=== PATIENT | female | born 1935 | race African-American/Black ===

== ENCOUNTER 2016-05-22 14:19 | Inpatient (IN) | payer BC, OTHER ==
[2016-05-22 14:34] VITALS: BMI 27.2
--- NOTE | 2016-05-22 14:40 | PDOC ---
History of Present Illness - General History Source: Patient, Spouse () Exam Limitations: No Limitations - History of Present Illness Initial Comments: 05/22/16 15:36 The patient is an 81 year old female with significant past medical history of diabetes and hyperlipidemia who presents to the emergency department with shortness of breath since this morning. The patient has dyspnea on exertion but denies SOB at rest. She denies orthopnea. She denies any associated chest pain or palpitations. The patient states that last night she felt lightheaded and felt like she might pass out, however she denies any syncope. The patient endorses a dry cough but denies any rhinorrhea. Her SOB is worse with ambulation and is better with rest. She denies any leg swelling or recent travels. She denies any sick contacts. She denies any recent illness, fevers, or chills. She does state that she felt lightheaded last night but denies any syncope of LOC. The patient is a former smoker (>50 years ago). The patient has a history of a lower extremity DVT many years ago. <Anika Gusman - Last Filed: 05/22/16 15:36> <Ronald Wilkerson - Last Filed: 05/22/16 16:38> - General Chief Complaint: Shortness of Breath Stated Complaint: SOB Time Seen by Provider: 05/22/16 14:25 Past History <Anika Gusman - Last Filed: 05/22/16 15:36> - Past Medical History Anemia: No Asthma: No Cancer: No Cardiac Disorders: No CVA: No COPD: No CHF: No Dementia: No Diabetes: Yes GI Disorders: (DUODENAL ULCER-YEARS AGO) Disorders: No HTN: No (IN THE PAST; MEDS D/Cd DUE TO HYPOTENSION) Hypercholesterolemia: Yes Liver Disease: No Seizures: No Thyroid Disease: Yes - Surgical History Abdominal Surgery: Yes Appendectomy: Yes Cardiac Surgery: No Cholecystectomy: No Lung Surgery: No Neurologic Surgery: No Orthopedic Surgery: Yes (2009 RIGHT KNEE ARTHROSCOPY) - Psycho/Social/Smoking Cessation Hx Anxiety: No Suicidal Ideation: No Smoking History: Former smoker Have you smoked in the past 12 months: No If you are a former smoker, when did you quit?: 1969 Information on smoking cessation initiated: No Hx Alcohol Use: No Drug/Substance Use Hx: No Substance Use Type: None Hx Substance Use Treatment: No <Ronald Wilkerson - Last Filed: 05/22/16 16:38> - Past Medical History Allergies/Adverse Reactions: Allergies Allergy/AdvReac Type Severity Reaction Status Date / Time cephalexin monohydrate Allergy Severe Rash Verified 05/22/16 14:24 [From Keflex] Home Medications: Ambulatory Orders Cholecalciferol (Vitamin D3) [Vitamin D-3] 2,000 unit PO DAILY 04/11/15 Metformin HCl [Glucophage] 1,000 mg PO BID 04/11/15 Review of Systems - Review of Systems Able to Perform ROS?: Yes Comments:: 05/22/16 15:36 CONSTITUTIONAL: No fever, no chills, no fatigue EYES: No visual changes ENT: No ear pain, no sore throat CARDIOVASCULAR: No chest pain, no palpitations RESPIRATORY: +SOB, +cough GI: No abdominal pain, no nausea, no vomiting, no constipation, no diarrhea GENITOURINARY: No dysuria, no frequency, no hematuria MUSCULOSKELETAL: No back pain, no joint pain, no myalgias SKIN: No rash NEURO: No headache <Anika Gusman - Last Filed: 05/22/16 15:36> *Physical Exam - Vital Signs Last Vital Signs Temp Pulse Resp BP Pulse Ox 98.3 F 114 H 22 116/89 93 L 05/22/16 15:05 05/22/16 15:21 05/22/16 15:21 05/22/16 15:21 05/22/16 15:21 - Physical Exam Comments: 05/22/16 15:36 CONSTITUTIONAL: Awake, alert, +tachypneic, dyspneic, hypoxemic, in moderate to severe respiratory distress. HEAD: Normocephalic; atraumatic EYES: PERRL; EOM intact ENMT: External appears normal; normal oropharynx NECK: Supple; non-tender; no cervical lymphadenopathy. No JVD CARD: Tachycardic. Normal S1, S2; no murmurs, rubs, or gallops RESP: Normal chest excursion with respiration; breath sounds clear and equal bilaterally; no wheezes, rhonchi, or rales ABD: Soft, non-distended; non-tender; no palpable organomegaly, no palpable hernias EXT: +Minimal pitting edema bilaterally with right calf tenderness. Normal ROM in all four extremities; distal pulses intact SKIN: Warm, dry, no rash NEURO: No focal neurological deficiencies. <NaseemAnika - Last Filed: 05/22/16 15:36> - Vital Signs Last Vital Signs Temp Pulse Resp BP Pulse Ox 116 H 26 H 126/110 92 L 05/22/16 14:28 05/22/16 14:25 05/22/16 14:25 05/22/16 14:28 <Ronald Wilkerson - Last Filed: 05/22/16 16:38> Heart Score/ECG Review - ECG Intrepretation Comment:: 05/22/16 15:37 Vent rate: 113 bpm OR interval: 186 ms QRS duration: 82 ms Sinus tachycardia Possible inferior infarct, age undetermined Anterior infarct, age undetermined <NaseemAnika - Last Filed: 05/22/16 15:36> ED Treatment Course - LABORATORY CBC & Chemistry Diagram: 05/22/16 15:05 05/22/16 15:05 - ADDITIONAL ORDERS Additional order review: 05/22/16 15:05 RBC 4.68 MCV 92.6 MCHC 33.0 RDW 14.4 MPV 9.5 Neutrophils % 63.9 Lymphocytes % 22.9 Monocytes % 9.8 Eosinophils % 2.9 Basophils % 0.5 - Medications Given in the ED: ED Medications Discontinued Medications Generic Name Dose Route Start Last Admin Trade Name Abdoulayeq PRN Reason Stop Dose Admin Nitroglycerin 0.4 mg 05/22/16 15:01 05/22/16 15:04 Nitrostat - SL 05/22/16 15:02 0.4 mg ONCE ONE Administration <NaseemAnika - Last Filed: 05/22/16 15:36> - LABORATORY CBC & Chemistry Diagram: 05/22/16 15:05 05/22/16 15:05 <Ronald Wilkerson - Last Filed: 05/22/16 16:38> Medical Decision Making - Critical Care Time Total Critical Care Time (minutes): 65 Critical Care Statement: The care of this patient involved high complexity decision making to prevent further life threatening deterioration of the patient 's condition and/or to evalute & treat vital organ system(s) failure or risk of failure. - Medical Decision Making 05/22/16 16:07 Patient is an 81-year-old female with history of diabetes, previous history of DVT (currently not on oral anticoagulation) presents with near syncope, and sudden onset of difficulty breathing at rest and with minimal exertion, severe hypoxemia requiring supplemental O2 via Ventimask at 50% to maintain oxygen saturation of 92-93% as well as sinus tachycardia. Patient's afebrile and hypertensive on initial evaluation. Lungs are noted to be clear, there is no JVD , no evidence of pericardial friction rub. Chest x-ray reveals no evidence of cardiomegaly, there is no infiltrate or effusion. I suspect a pulmonary embolism at this time. ABG on 50% FiO2 reveals pCO2 of 28 and pO2 of 58 representing elevated A-a gradient of 265. Bedside echocardiogram was performed and shows no evidence of pericardial effusion. At this time, I believe the patient experienced a submassive PE. We will administer heparin as at this time the benefits of heparin administration of the way the possible risk of bleeding. Will admit to the ICU for further evaluation and treatment. 05/22/16 16:29 Received verbal report from Dr. Dash regarding 2-D echocardiogram. Echo shows dilated right ventricle increased right ventricular pressures suggestive of PE. Case discussed with Dr. Parnell of pulmonary. Will initiate anticoagulation with heparin at 1000 units an hour. Will admit to the ICU. <Ronald Wilkerson - Last Filed: 05/22/16 16:38> *DC/Admit/Observation/Transfer - Attestations Scribe Attestion: 05/22/16 15:37 Documentation prepared by Anika Gusman, acting as medical records field technician for Ronald Wilkerson MD. <Anika Gusman - Last Filed: 05/22/16 15:36> - Discharge Dispostion Admit: Yes - Attestations Physician Attestion: 05/22/16 16:07 The documentation was prepared by the scribe under my direct supervision. I have reviewed the documentation which correctly represents the findings, medical decision-making and critical action taken by me. <Ronald Wilkerson - Last Filed: 05/22/16 16:38> Diagnosis at time of Disposition: Pulmonary embolism with acute cor pulmonale Qualifiers: Pulmonary embolism type: other Chronicity: acute Qualified Code(s): I26.09 - Other pulmonary embolism with acute cor pulmonale
[2016-05-22] MEDS ORDERED: NITROGLYCERIN SUBLINGUAL 1/150 0.4 MG TAB SL ONE (15:01)
[2016-05-22] MEDS ORDERED: NITROGLYCERIN SUBLINGUAL 1/150 0.4 MG TAB ONE (15:03)
[2016-05-22 15:32] LABS: BASOPHIL 0.5 % (0-2.0); EOSINOPHIL 2.9 % (0-4.5); MCH 30.6 pg (25.7-33.7); MEAN CELL VOLUME 92.6 fl (80-96); MEAN PLT VOLUME 9.5 fl (7.5-11.1); NEUTROPHILS 63.9 % (42.8-82.8); PLATELET COUNT 114 K/MM3 (134-434); RDW 14.4 % (11.6-15.6)
[2016-05-22 15:45] LABS: ALBUMIN 3.8 g/dl (3.4-5.0); BILIRUBIN,TOTAL 0.5 mg/dL (0.2-1.0); CALCIUM 9.4 mg/dL (8.5-10.1); CREATININE 1.3 mg/dL (0.55-1.02); TOT PROT 7.6 g/dl (6.4-8.2)
[2016-05-22 15:48] LABS: TROPONIN I 0.04 ng/ml (0.00-0.05)
[2016-05-22 15:59] LABS: ALLENS TEST POSITIVE; ART PUNCT SITE RIGHT RADIAL; ARTERIAL BLD GAS O2 SATURATION 89.3 % (90-98.9); ARTERIAL BLOOD GAS BASE EXCESS -1.9 meq/l (-2-2); ARTERIAL BLOOD GAS HCO3 20.4 meq/L (22-26); LPM/O2% 50%; PT. ON O2? YES
[2016-05-22 16:00] LABS: ARTERIAL BLOOD GAS pH 7.46 (7.35-7.45); TYPE OF O2 VENTI MASK
[2016-05-22 16:01] LABS: ARTERIAL BLOOD GAS PO2 58.6 mmHg (68-100)
[2016-05-22] MEDS ORDERED: HEPARIN NA (PORCINE) 5,000 UNITS/ML 1ML VIAL IVPUSH ONE (16:01)
[2016-05-22 16:17] LABS: INR 1.02 (0.82-1.09); PROTHROMBIN TIME (PATIENT) 11.2 SEC (9.98-11.88)
--- NOTE | 2016-05-22 16:32 | PN ---
[id number] HYPOXEMIC RESPIRATORY FAILURE SUB-MASSIVE PULMONARY EMBOLISM H/O DVT HTN PLAN ANTICOAGULATION SUPPLEMENTAL O2 HEPARIN CATHETER DIRECTED THROMBOLYSIS CE , BNP DUPLEX LOWER EXTREMITIES ICU MONITORING W/U FOR HYPERCOAGULABLE STATE DR CARLISLE Problem List - Problems (1) Acute respiratory failure with hypoxemia Code(s): J96.01 - ACUTE RESPIRATORY FAILURE WITH HYPOXIA (2) Subacute massive pulmonary embolism Code(s): I26.99 - OTHER PULMONARY EMBOLISM WITHOUT ACUTE COR PULMONALE (3) DVT (deep venous thrombosis) Code(s): I82.409 - ACUTE EMBOLISM AND THOMBOS UNSP DEEP VN UNSP LOWER EXTREMITY (4) Hypertension Code(s): I10 - ESSENTIAL (PRIMARY) HYPERTENSION (5) Pulmonary embolism with acute cor pulmonale Code(s): I26.09 - OTHER PULMONARY EMBOLISM WITH ACUTE COR PULMONALE Qualifiers : Pulmonary embolism type: other Chronicity: acute Qualified Code( s): I26.09 - Other pulmonary embolism with acute cor pulmonale
[2016-05-22] MEDS ORDERED: ACETAMINOPHEN 325 MG TABLET (FP) PO PRN (16:36)
[2016-05-22] MEDS ORDERED: ONDANSETRON 4 MG/2 ML VIAL IVPB PRN (16:36)
--- NOTE | 2016-05-22 16:40 | HP ---
CHIEF COMPLAINT: Shortness of breath PCP: Dr. Hernandez HISTORY OF PRESENT ILLNESS: This is an 81 year old female with a history of lower extremity DVT x40 yrs ago while on OCP (does not recall having any hypercoaguable workup at that time), HLD, pulmonary sarcoidosis, and NIDDM who presented to the ED today complaining of sudden onset of lightheadedness and dyspnea while out shopping yesterday. She does also note mild right calf pain and swelling for several weeks. She denies chest pain, cough/hemoptysis, fevers/ chills, or any other symptoms. ER course was notable for: (1) EKG: Sinus tachycardia at 113bpm (2) CTA Chest: Bilateral PEs (3) Echocardiogram: Dilated right ventricle, elevated RVSP Recent Travel: None PAST MEDICAL HISTORY: As above PAST SURGICAL HISTORY: Left knee arthroscopy Social History: Lives with , retired HEALTH AND WELLNESS MANAGER Smoking: Distant history of cigarette smoking Alcohol: None Family History: No known family history of hypercoaguability Allergies cephalexin monohydrate [From Keflex] Allergy (Severe, Verified 05/22/16 14:24) Rash HOME MEDICATIONS: Home Medications Medication Instructions Recorded Cholecalciferol (Vitamin D3) 2,000 unit PO DAILY 04/11/15 [Vitamin D-3] Metformin HCl [Glucophage] 1,000 mg PO BID 04/11/15 REVIEW OF SYSTEMS CONSTITUTIONAL: Generalized weakness Absent: fever, chills, diaphoresis, malaise, loss of appetite, weight change HEENT: Absent: rhinorrhea, nasal congestion, throat pain, throat swelling, difficulty swallowing, mouth swelling, ear pain, eye pain, visual changes CARDIOVASCULAR: Lightheadedness/near syncope Absent: chest pain, syncope, palpitations, irregular heart rate, peripheral edema RESPIRATORY: Shortness of breath at rest Absent: cough, hemoptysis GASTROINTESTINAL: Absent: abdominal pain, abdominal distension, nausea, vomiting, diarrhea, constipation, melena, hematochezia GENITOURINARY: Absent: dysuria, frequency, urgency, hesitancy, hematuria, flank pain, genital pain MUSCULOSKELETAL: Absent: myalgia, arthralgia, joint swelling, back pain, neck pain SKIN: Absent: rash, itching, pallor HEMATOLOGIC/IMMUNOLOGIC: Absent: easy bleeding, easy bruising, lymphadenopathy, frequent infections ENDOCRINE: Absent: unexplained weight gain, unexplained weight loss, heat intolerance, cold intolerance NEUROLOGIC: Absent: headache, focal weakness or paresthesias, dizziness, unsteady gait, seizure, mental status changes, bladder or bowel incontinence PSYCHIATRIC: Absent: anxiety, depression, suicidal or homicidal ideation, hallucinations. PHYSICAL EXAMINATION Vital Signs - 24 hr 05/22/16 05/22/16 05/22/16 14:25 14:28 15:05 Temperature 98.3 F Pulse Rate 116 H 116 H Pulse Rate [ Apical] Pulse Rate [ 122 H Right Radial] Respiratory 26 H 22 Rate Blood Pressure 126/110 Blood Pressure 147/112 [Left] O2 Sat by Pulse 92 L 92 L 90 L Oximetry (%) 05/22/16 05/22/16 15:12 15:21 Temperature Pulse Rate 110 H 114 H Pulse Rate [ 114 H Apical] Pulse Rate [ 110 H Right Radial] Respiratory 24 22 Rate Blood Pressure Blood Pressure 132/110 116/89 [Left] O2 Sat by Pulse 92 L 93 L Oximetry (%) GENERAL: Awake, alert, and fully oriented, in no acute distress. HEAD: Normal with no signs of trauma. EYES: Pupils equal, round and reactive to light, extraocular movements intact, sclera anicteric, conjunctiva clear. No lid lag. EARS, NOSE, THROAT: Ears normal, nares patent, oropharynx clear without exudates. Moist mucous membranes. NECK: Normal range of motion, supple without lymphadenopathy, JVD, or masses. LUNGS: Tachypneic, appears dyspneic but is able to speak in full sentences. Breath sounds equal, clear to auscultation bilaterally. No accessory muscle use. HEART: Tachycardic. Regular rate and rhythm, normal S1 and S2 without murmur, rub or gallop. ABDOMEN: Soft, nontender, not distended, normoactive bowel sounds, no guarding, no rebound, no masses. No hepatomegaly or splenomegaly. MUSCULOSKELETAL: Normal range of motion at all joints. No bony deformities or tenderness. No CVA tenderness. UPPER EXTREMITIES: 2+ pulses, warm, well-perfused. No cyanosis. No clubbing. Cap refill <2 seconds. No peripheral edema. LOWER EXTREMITIES: 2+ pulses, warm, well-perfused. Right calf tenderness, + Homans' sign. NEUROLOGICAL: Cranial nerves II-XII intact. Normal speech. PSYCHIATRIC: Cooperative. Good eye contact. Appropriate mood and affect. SKIN: Warm, dry, normal turgor, no rashes or lesions noted. Laboratory Results - last 24 hr 05/22/16 05/22/16 05/22/16 15:05 15:05 15:05 WBC 9.0 RBC 4.68 Hgb 14.3 Hct 43.3 MCV 92.6 MCHC 33.0 RDW 14.4 Plt Count 114 L MPV 9.5 Neutrophils % 63.9 Lymphocytes % 22.9 Monocytes % 9.8 Eosinophils % 2.9 Basophils % 0.5 INR 1.02 Puncture Site ABG pH ABG pCO2 at Pt Temp ABG pO2 at Pt Temp ABG HCO3 ABG O2 Sat (Measured) ABG O2 Content ABG Base Excess Charli Test O2 Delivery Device Oxygen Flow Rate Sodium 140 Potassium 4.1 Chloride 103 Carbon Dioxide 23 Anion Gap 14 BUN 16 Creatinine 1.3 H Creat Clearance w eGFR 39.41 Random Glucose 133 H Calcium 9.4 Total Bilirubin 0.5 AST 16 ALT 12 Alkaline Phosphatase 71 Creatine Kinase 111 Troponin I 0.04 Total Protein 7.6 Albumin 3.8 05/22/16 15:45 WBC RBC Hgb Hct MCV MCHC RDW Plt Count MPV Neutrophils % Lymphocytes % Monocytes % Eosinophils % Basophils % INR Puncture Site Right radial ABG pH 7.46 H ABG pCO2 at Pt Temp 29.1 L ABG pO2 at Pt Temp 58.6 L ABG HCO3 20.4 L ABG O2 Sat (Measured) 89.3 L ABG O2 Content 17.0 ABG Base Excess -1.9 Charli Test Positive O2 Delivery Device Venti mask Oxygen Flow Rate 50% Sodium Potassium Chloride Carbon Dioxide Anion Gap BUN Creatinine Creat Clearance w eGFR Random Glucose Calcium Total Bilirubin AST ALT Alkaline Phosphatase Creatine Kinase Troponin I Total Protein Albumin ASSESSMENT/PLAN: 81 year old female with submassive PE. Problem List - Problem (1) Pulmonary embolism with acute cor pulmonale Assessment/Plan: -Currently normotensive -Heparin 5000 unit bolus given; start gtt at 1000 units/hr -IR consulted for consideration of catheter-directed TPA vs. thrombectomy -Monitor in ICU Code(s): I26.09 - OTHER PULMONARY EMBOLISM WITH ACUTE COR PULMONALE Qualifiers : Pulmonary embolism type: other Chronicity: acute Qualified Code( s): I26.09 - Other pulmonary embolism with acute cor pulmonale (2) Acute respiratory failure with hypoxemia Assessment/Plan: -Treatment of PE as above -Supplemental O2 via 50% VentiMask Code(s): J96.01 - ACUTE RESPIRATORY FAILURE WITH HYPOXIA (3) Hyperlipemia Assessment/Plan: -Choelsterol/fat-controlled diet when resumes PO Code(s): E78.5 - HYPERLIPIDEMIA, UNSPECIFIED (4) Diabetes Assessment/Plan: -Hold Metformin s/p CTA -ISS -FSACHS -Diabetic diet when resumes PO Code(s): E11.9 - TYPE 2 DIABETES MELLITUS WITHOUT COMPLICATIONS (5) DVT prophylaxis Assessment/Plan: -Therapeutic heparin Code(s): CRU6673 - Visit type - Emergency Visit Emergency Visit: Yes ED Registration Date: 05/22/16 Care time: The patient presented to the Emergency Department on the above date and was hospitalized for further evaluation of their emergent condition. - New Patient This patient is new to me today: Yes Date on this admission: 05/23/16 - Critical Care Critical Care patient: Yes Total Critical Care Time (in minutes): 35 Critical Care Statement: The care of this patient involved high complexity decision making to prevent further life threatening deterioration of the patient 's condition and/or to evalute & treat vital organ system(s) failure or risk of failure.
[2016-05-22] MEDS ORDERED: HEPARIN NA (PORCINE) 5,000 UNITS/ML 1ML VIAL IVPUSH PRN ×2 (16:44)
[2016-05-22] MEDS: HEPARIN - 25,000 UNIT in SODIUM CHLORIDE 495 ML IV SCH (16:45)
[2016-05-22] MEDS ORDERED: HEPARIN - 25,000 UNIT in SODIUM CHLORIDE 495 ML IV SCH (16:45)
[2016-05-22] MEDS ORDERED: HEPARIN NA (PORCINE) 5,000 UNITS/ML 1ML VIAL ONE (16:47)
[2016-05-22] MEDS ORDERED: HEPARIN INFUSION - 500 ML IVPB ONE (16:47)
--- NOTE | 2016-05-22 17:18 | CONS ---
DATE OF CONSULTATION: 05/22/2016 REFERRING PHYSICIAN: Ronald Wilkerson MD HISTORY OF PRESENT ILLNESS: The patient is an 81-year-old black female with a past medical history of DVT many years ago treated with anticoagulation, hyperlipidemia, nonsmoker, admitted to [facility] with acute onset of shortness of breath. The patient states she was doing well until last night when she felt very lightheaded and felt like she was going to faint. She laid down, went to sleep and woke up this morning initially feeling well. States that she was sitting in a chair and suddenly felt acute onset of shortness of breath. Denies any chest pain, nausea, vomiting or diaphoresis. She presented to the emergency room with the above. In the ER she was noted to be markedly hypoxemic with O2 saturations in the low 80s. She was placed on supplemental O2. She was also noted to be tachycardic. She denies any fever, chills. Denies history of respiratory failure in the past or ventilatory support. There is no history of recent travel. The patient was empirically placed on IV heparin for presumed diagnosis of acute pulmonary embolism. Echocardiogram was performed which revealed evidence of dilated right ventricle with increased right ventricular pressures suggestive of PE. PAST MEDICAL HISTORY: Again, includes DVT, hypertension. SOCIAL HISTORY: Nonsmoker. No occupational exposures. REVIEW OF SYSTEMS: Positive orthopnea. Positive dyspnea. No chest pain. No palpitations. No nausea. No vomiting. No diaphoresis. No hemoptysis. No abdominal pain. Mild lower extremity right calf tenderness. PHYSICAL EXAMINATION: General: The patient is an elderly black female, well developed, well nourished , awake, alert, dyspneic and tachypneic, on nasal O2. Vital Signs: Temperature is 98.3, heart rate 114 and regular, blood pressure 116/89, respiratory rate 22, O2 saturation is 93% on Ventimask. HEENT: Normocephalic and atraumatic. Neck: Supple. Heart: Tachycardia with normal S1, S2. Chest: Diminished breath sounds bilaterally. Abdomen: Soft. Bowel sounds are positive. Extremities: There is some mild tenderness of the right calf. LABORATORY DATA: Blood gas shows pH 7.46, PCO2 of 29, PO2 of 58, bicarbonate of 20, and saturation of 89. That was on 50% Ventimask. WBC is 9, hemoglobin 14.3, hematocrit 43.3, platelet count 114,000. Chemistries: BUN 16, creatinine 1.3. Chest CT is pending. IMPRESSION: 1. Acute hypoxemic respiratory failure, secondary to acute submassive pulmonary embolism. 2. History of deep vein thrombosis. 3. History of hypertension. PLAN: 1. IV heparin. 2. Supplemental O2. 3. Cardiac enzymes. 4. Review CT scan as soon as available. 5. ICU monitoring. 6. Cardiac enzymes. 7. Consider catheter-directed tPA. 8. F/U Echo 9. W/U for Hypercoagulable state 10. Duplex ultrasound lower extremities. CHELLE CARLISLE M.D. DIANA/[id number] MTDD
--- NOTE | 2016-05-22 21:19 | CONSULT ---
Consult Consult Specialty:: PULM/CCM Reason for Consultation:: Sub Massive PE, right heart strain, hypoxia - History of Present Illness Chief Complaint: shortness of breath History of Present Illness: Briefly Ms Barrios is an 81 year old woman with a history of lower extremity DVT x 40 yrs ago while on OCP (does not recall having any hypercoaguable workup at that time, did have one miscarriage but subsquent to term x 2), sarcoidosis (never on treatment) HLD, and NIDDM who presented to the ED today complaining of sudden onset of lightheadedness and dyspnea while out shopping yesterday. She was able to go home and rest overnight. This morning was unable to walk without dyspnea, prompting 911 activation. She does also note mild right calf pain and swelling for several weeks, thought was arthritis. She denies chest pain, cough/hemoptysis, fevers/chills, or any other symptoms. In ED afebrile, normotensive, tachycardic 120, RR 28, requiring 50% venti for Spo2 >92. CXr clear. EKG largely unrevealing isolate Q in III but no ischemic changes. Started on empiric heparin gtt. CTA showed bilateral PE. TTE showed normal LV, and evidence of R heart strain. Chains of enlarged mediastinal lymphadenopathy c/w known sarcoidosis. Transferred to ICU for further care. LED showed extensive non-occlusive thrombus on R. On arrival in ICU pt awake, alert, mildly tachypneic but not in distress. - History Source History Provided By: Patient - Past Medical History Cardio/Vascular: Yes: HTN, Hyperlipdemia Pulmonary: Yes: Other (Sarcoidosis) ...: No Endocrine: Yes: Diabetes Mellitus Additional Medical History: one miscarriage - Alcohol/Substance Use Hx Alcohol Use: No History of Substance Use: reports: None - Smoking History Smoking history: Former smoker Have you smoked in the past 12 months: No If you are a former smoker, when did you quit?: 1970 - Social History Usual Living Arrangement: With Spouse ADL: Independent History of Recent Travel: No (No recent long auto either) Home Medications - Allergies Allergies/Adverse Reactions: Allergies Allergy/AdvReac Type Severity Reaction Status Date / Time cephalexin monohydrate Allergy Severe Rash Verified 05/22/16 14:24 [From Keflex] - Home Medications Home Medications: Ambulatory Orders Cholecalciferol (Vitamin D3) [Vitamin D-3] 2,000 unit PO DAILY 04/11/15 Metformin HCl [Glucophage] 1,000 mg PO BID 04/11/15 Family Disease History - Family Disease History Family Disease History: Other: Father (CVA) Review of Systems - Review of Systems Constitutional: reports: No Symptoms Eyes: reports: No Symptoms HENT: reports: No Symptoms Neck: reports: No Symptoms Cardiovascular: reports: No Symptoms Respiratory: reports: SOB (as described in HPI), SOB on Exertion Genitourinary: reports: No Symptoms Breasts: reports: No Symptoms Reported Musculoskeletal: reports: No Symptoms, Extremity Pain (R>L LE pain.) Neurological: reports: No Symptoms Endocrine: reports: No Symptoms Hematology/Lymphatic: reports: No Symptoms Psychiatric: reports: No Symptoms Physical Exam Vital Signs: Vital Signs Temperature 98.3 F 05/22/16 19:01 Pulse Rate 108 H 05/22/16 19:01 Respiratory Rate 32 H 05/22/16 19:01 Blood Pressure 127/94 05/22/16 19:01 O2 Sat by Pulse Oximetry (%) 93 L 05/22/16 19:19 Constitutional: Yes: Well Nourished, No Distress Eyes: Yes: Conjunctiva Clear, EOM Intact, PERRL HENT: Yes: Atraumatic, Normocephalic Neck: Yes: Supple, Trachea Midline. No: Lymphadenopathy Cardiovascular: Yes: Regular Rate and Rhythm, S1, S2. No: Murmur, Rub Respiratory: Yes: CTA Bilaterally, On Venti-Mask. No: Accessory Muscle Use Gastrointestinal: Yes: Normal Bowel Sounds, Soft ...Rectal Exam: Yes: Deferred Renal/: Yes: WNL Breast(s): Yes: WNL Musculoskeletal: Yes: Muscle Pain Extremities: Yes: WNL. No: Cyanosis, Delayed Capillary Refill, Other (No clubbing) Edema: No Integumentary: Yes: WNL Neurological: Yes: WNL, Alert, Oriented, Cran Nerves II-XII Intact ...Motor Strength: WNL Psychiatric: Yes: WNL Labs: CBC, BMP 05/22/16 15:05 05/22/16 15:05 Imaging - Results Chest X-ray: Image Reviewed (clear) Cat Scan: Image Reviewed Other: Report Reviewed (Extensive R non occlusive thrombus) Problem List - Problems (1) Acute respiratory failure with hypoxemia Code(s): J96.01 - ACUTE RESPIRATORY FAILURE WITH HYPOXIA (2) DVT (deep venous thrombosis) Code(s): I82.409 - ACUTE EMBOLISM AND THOMBOS UNSP DEEP VN UNSP LOWER EXTREMITY (3) Pulmonary embolism with acute cor pulmonale Code(s): I26.09 - OTHER PULMONARY EMBOLISM WITH ACUTE COR PULMONALE Qualifiers : Pulmonary embolism type: other Chronicity: acute Qualified Code( s): I26.09 - Other pulmonary embolism with acute cor pulmonale (4) Subacute massive pulmonary embolism Code(s): I26.99 - OTHER PULMONARY EMBOLISM WITHOUT ACUTE COR PULMONALE Assessment/Plan Pulm/CCM Pt seen and examined in the ICU A/ 81 y/o woman with remote hx of DVT while on OCP, 1 previous miscarriage but no other hx c/f hypercoag state now presenting with bilateral PE and R LE DVT with hypoxemia, some R heart strain but with hemodynamic stablility. She is on heparin gtt, she is less distress than earlier, she is oxygenating adequately. While she still has extensive clot burden and is at risk for acute worsening she is on appropriate but conservative therapy, there is no current indication for tPA. She may however benefit from catheter directed therapy. p/ -heparin gtt for full therapeutic goal -Fio2 for Spo2 >92 - IR consulted, apparently considering directed therapy - systemic tPA if hemodynamically unstable - can check and trend t-BNP - repeat TTE in few days - NPO pending decision about IR procedure -hypercoag workup (Protein C, Protein S, APL, etc) as outpt -ICU care Derick Walker ACNP [id number]
[2016-05-23] MEDS: INSULIN SLIDING SCALE (NOVOLOG) 1 VIAL SQ SCH ×5 (00:02→22:18)
[2016-05-23] MEDS: MUPIROCIN 2% TOPICAL OINTMENT FOR DECOLONIZATION NS SCH ×3 (00:03→22:07)
[2016-05-23] MEDS: CHLORHEXIDINE GLUCONATE 4% CLEANSER FOR DECOLONIZATION TP SCH ×2 (00:03→22:07)
[2016-05-23 06:08] LABS: BASOPHIL 0.5 % (0-2.0); EOSINOPHIL 2.8 % (0-4.5); MCH 30.8 pg (25.7-33.7); MCHC 33.4 g/dl (32.0-36.0); MEAN CELL VOLUME 92.2 fl (80-96); MEAN PLT VOLUME 9.5 fl (7.5-11.1); NEUTROPHILS 59.4 % (42.8-82.8); PLATELET COUNT 108 K/MM3 (134-434); RDW 14.1 % (11.6-15.6); WHITE BLOOD COUNT 7.5 K/mm3 (4.0-10.0)
[2016-05-23 06:22] LABS: INR 1.23 (0.82-1.09); PROTHROMBIN TIME (PATIENT) 13.6 SEC (9.98-11.88)
--- NOTE | 2016-05-23 07:25 | PN ---
[id number] chest pain that increases with deep breathing, cough and movement. Denies lightheadedness, headache, dizziness or leg pain. OBJECTIVE: Non-rebreather mask SPO2 100%, mildly tachypneic, heart rate high 90's. ABG hypoxemia, mild respiratory alkalosis: 7.46/29/58.6/20.4 Vital Signs Period Temp Pulse Resp BP Sys/Reynoso Pulse Ox Last 24 Hr 97.4 F-98.4 F 88-108 18-32 111-133/68-94 88-94 GENERAL: The patient is awake, alert, and fully oriented. LUNGS: Breathing even and unlabored at rest, does develop some dyspnea when speaking. Breath sounds equal, clear to auscultation bilaterally. HEART: Regular rate and rhythm, S1, S2 without murmur, rub or gallop. ABDOMEN: Soft, nontender, nondistended, normoactive bowel sounds. EXTREMITIES: 2+ pulses, warm, no edema. Right calf tenderness. NEUROLOGICAL: CN II through XII grossly intact. Normal speech, gait not observed. PSYCH: Normal mood, normal affect. SKIN: Warm, dry, normal turgor, no rashes or lesions noted Imaging - CXR (05/22/16): No evidence of pneumonia, CHF, pleural effusion or pneumothorax. - Vascular Duplex (05/22/16): Right lower extremity there is extensive largely nonocclusive thrombus within the common and superficial femoral veins as well as the popliteal vein; these veins are incompletely compressible. No evidence of DVT on the left side. - Chest CTA (05/22/16): extensive bilateral pulmonary embolism noted within the right upper and lower lobe pulmonary arteries, as well as the bifurcation of the left main pulmonary artery, extensive lymphadenopathy involving all mediastinal chains. The heart is not enlarged, there is not thoracic aortic aneuysm or dissection. No pulmonary masses or pleural effusions, no gallbladder abnormalities. - Echo (05/22/16): As per cardiology, ECHO showed dilated right ventricle, elevated RVSP CBCD WBC 7.5 K/mm3 (4.0-10.0) 05/23/16 05:00 RBC 4.24 M/mm3 (3.60-5.2) 05/23/16 05:00 Hgb 13.1 GM/dL (10.7-15.3) 05/23/16 05:00 Hct 39.1 % (32.4-45.2) 05/23/16 05:00 MCV 92.2 fl (80-96) 05/23/16 05:00 MCHC 33.4 g/dl (32.0-36.0) 05/23/16 05:00 RDW 14.1 % (11.6-15.6) 05/23/16 05:00 Plt Count 108 K/MM3 (134-434) L 05/23/16 05:00 MPV 9.5 fl (7.5-11.1) 05/23/16 05:00 CMP Sodium 142 mmol/L (136-145) 05/23/16 05:00 Potassium 3.8 mmol/L (3.5-5.1) 05/23/16 05:00 Chloride 109 mmol/L (98-107) H 05/23/16 05:00 Carbon Dioxide 22 mmol/L (21-32) 05/23/16 05:00 Anion Gap 11 (8-16) 05/23/16 05:00 BUN 13 mg/dL (7-18) 05/23/16 05:00 Creatinine 1.1 mg/dL (0.55-1.02) H 05/23/16 05:00 Creat Clearance w eGFR 47.79 (>60) 05/23/16 05:00 Random Glucose 92 mg/dL (74-106) D 05/23/16 05:00 Calcium 8.7 mg/dL (8.5-10.1) 05/23/16 05:00 Total Bilirubin 0.5 mg/dL (0.2-1.0) 05/23/16 05:00 AST 15 U/L (15-37) 05/23/16 05:00 ALT 9 U/L (12-78) L D 05/23/16 05:00 Alkaline Phosphatase 63 U/L (45-117) 05/23/16 05:00 Total Protein 6.5 g/dl (6.4-8.2) 05/23/16 05:00 Albumin 3.2 g/dl (3.4-5.0) L 05/23/16 05:00 CARDIAC ENZYMES Creatine Kinase 94 IU/L (26-192) 05/23/16 05:00 Troponin I 0.09 ng/ml (0.00-0.05) H 05/23/16 05:00 ABG Results ABG pH 7.46 (7.35-7.45) H 05/22/16 15:45 ABG pCO2 at Pt Temp 29.1 mmHg (35-45) L 05/22/16 15:45 ABG pO2 at Pt Temp 58.6 mmHg (68-100) L 05/22/16 15:45 ABG HCO3 20.4 meq/L (22-26) L 05/22/16 15:45 ABG O2 Sat (Measured) 89.3 % (90-98.9) L 05/22/16 15:45 ABG O2 Content 17.0 % vol (15-22) 05/22/16 15:45 ABG Base Excess -1.9 meq/l (-2-2) 05/22/16 15:45 Laboratory Results - last 24 hr 05/22/16 05/22/16 05/22/16 17:06 17:06 20:20 WBC RBC Hgb Hct MCV MCHC RDW Plt Count MPV Neutrophils % Lymphocytes % Monocytes % Eosinophils % Basophils % INR PTT (Actin FS) 33.8 D-Dimer Cancelled 4383 H POC Glucometer Lactic Acid 05/22/16 05/22/16 05/22/16 20:20 23:00 23:08 WBC RBC Hgb Hct MCV MCHC RDW Plt Count MPV Neutrophils % Lymphocytes % Monocytes % Eosinophils % Basophils % INR PTT (Actin FS) 161.5 H D D-Dimer POC Glucometer 122.87314 Lactic Acid 2.139 H* 05/23/16 05/23/16 05/23/16 05:00 05:00 05:37 WBC 7.5 RBC 4.24 Hgb 13.1 Hct 39.1 MCV 92.2 MCHC 33.4 RDW 14.1 Plt Count 108 L MPV 9.5 Neutrophils % 59.4 Lymphocytes % 25.9 Monocytes % 11.4 H Eosinophils % 2.8 Basophils % 0.5 INR 1.23 H PTT (Actin FS) D-Dimer POC Glucometer 109.13847 Lactic Acid 05/23/16 06:50 WBC RBC Hgb Hct MCV MCHC RDW Plt Count MPV Neutrophils % Lymphocytes % Monocytes % Eosinophils % Basophils % INR PTT (Actin FS) 77.1 H D D-Dimer POC Glucometer Lactic Acid Active Medications Generic Name Dose Route Start Last Admin Trade Name Freq PRN Reason Stop Dose Admin Acetaminophen 650 mg 05/22/16 16:36 Tylenol - PO Q6H PRN FEVER OR PAIN Chlorhexidine Gluconate 1 applic 05/22/16 22:00 05/23/16 00:03 Hibiclens For Decolonization - TP Not Given HS MARV Heparin Sodium (Porcine) 1,000 unit 05/22/16 16:43 Heparin - IVPUSH PRN PRN Heparin Heparin Sodium (Porcine) 5,000 unit 05/22/16 16:43 Heparin - IVPUSH PRN PRN Heparin Heparin Sodium (Porcine) 25, 500 mls @ 20 mls/hr 05/22/16 16:45 05/23/16 00:31 000 unit/ Sodium Chloride IV 700 unit/hr TITR MARV Titration Protocol 1,000 UNIT/HR Insulin Aspart 1 vial 05/22/16 22:00 05/23/16 00:02 Novolog Vial Sliding Scale - SQ Not Given ACHS [facility] Protocol Mupirocin 1 applic 05/22/16 22:00 05/23/16 00:03 Bactroban Ointment (For Decolonization) - NS 05/27/16 21:59 Not Given BID MARV Ondansetron HCl 4 mg 05/22/16 16:36 Zofran Injection IVPB Q6H PRN NAUSEA ASSESSMENT: This is a 81 year old female with a PMH of lower extremity DVT x40 years ago while on OCP (without hypercoaguable workup), HLD, pulmonary sarcoidosis, NIDDM, past smoker, who presented to the ED complaining of shortness of breath, sudden onset of lightheadedness, MAURO and mild right calf pain and swelling for several weeks. She was admitted and found to have submassive PE, DVT to right LE and extensive mediastinal lymphadenopathy on CTA. PLAN: Submassive PE/extensive DVT - Pt is hemodynamically stable; no hypotension observed - Chest CTA shows extensive bilateral pulmonary embolism noted within the right upper and lower lobe pulmonary arteries, as well as the bifurcation of the left main pulmonary artery - Echocardiogram: Flattened septum consistent with RV overload; elevated RVSP > 60mmHg, RV systolic function severely reduced - BNP is also elevated at 7110 - Vascular Duplex: Right lower extremity there is extensive largely nonocclusive thrombus within the common and superficial femoral veins as well as the popliteal vein - On heparin gtt, titrate to aPTT - Given evidence of right heart strain, discussed possible intervention with Dr. Goldman; patient remains NPO for now - Consider systemic tPA if becomes hemodynamically unstable - Needs hypercoaguable workup as outpatient - Incidental noted on CTA is extensive lymphadenopathy involving all mediastinal chains; lymphoma is a consideration; will consult oncology in case biopsy is warranted (however, suspect likely secondary to known history of pulmonary sarcoidosis) Acute Respiratory Failure - Supplemental O2 as needed to maintain saturation - Repeat ABG now to assess for improved oxygenation (PO2 vas 58 on 50% FiO2) Sarcoidosis: history of - No active issues Endocrine: DM - FS ACHS - Insulin Sliding scale - Diabetic diet when resumes PO Disposition: Continues to require inpatient ICU care. Code status: Full Problem List - Problems (1) Pulmonary embolism with acute cor pulmonale Code(s): I26.09 - OTHER PULMONARY EMBOLISM WITH ACUTE COR PULMONALE Qualifiers : Qualified Code(s): I26.09 - Other pulmonary embolism with acute cor pulmonale (2) Acute respiratory failure with hypoxemia Code(s): J96.01 - ACUTE RESPIRATORY FAILURE WITH HYPOXIA (3) Hyperlipemia Code(s): E78.5 - HYPERLIPIDEMIA, UNSPECIFIED (4) Diabetes Code(s): E11.9 - TYPE 2 DIABETES MELLITUS WITHOUT COMPLICATIONS (5) DVT prophylaxis Code(s): NXD9267 - Visit type - Emergency Visit Emergency Visit: Yes ED Registration Date: 05/22/16 Care time: The patient presented to the Emergency Department on the above date and was hospitalized for further evaluation of their emergent condition. - New Patient This patient is new to me today: No - Critical Care Critical Care patient: Yes Total Critical Care Time (in minutes): 35 Critical Care Statement: The care of this patient involved high complexity decision making to prevent further life threatening deterioration of the patient 's condition and/or to evalute & treat vital organ system(s) failure or risk of failure.
[2016-05-23 07:31] LABS: ALBUMIN 3.2 g/dl (3.4-5.0); BILIRUBIN,TOTAL 0.5 mg/dL (0.2-1.0); CALCIUM 8.7 mg/dL (8.5-10.1); CREATININE 1.1 mg/dL (0.55-1.02); MAGNESIUM 1.8 mg/dL (1.8-2.4); TOT PROT 6.5 g/dl (6.4-8.2)
[2016-05-23 07:34] LABS: TROPONIN I 0.09 ng/ml (0.00-0.05)
--- NOTE | 2016-05-23 09:37 | PN ---
Progress Note (short form) - Note Progress Note: Patient seen and examined in the ICU. Awake and alert on 100% NRBM. Reports some mild, intermittent sternal discomfort. On IV Heparin. Intake & Output 05/20/16 05/21/16 05/22/16 05/23/16 23:59 23:59 23:59 23:59 Intake Total 100 710 Output Total 200 Balance -100 710 Weight 189 lb 11.2 oz 189 lb 11.2 oz Last Vital Signs Temp Pulse Resp BP Pulse Ox 98.2 F 90 21 115/83 99 05/23/16 06:00 05/23/16 08:00 05/23/16 08:00 05/23/16 08:00 05/23/16 09:00 Active Medications Acetaminophen (Tylenol -) 650 mg PO Q6H PRN PRN Reason: FEVER OR PAIN Chlorhexidine Gluconate (Hibiclens For Decolonization -) 1 applic TP HS [facility] Last Admin: 05/23/16 00:03 Dose: Not Given Heparin Sodium (Porcine) (Heparin -) 1,000 unit IVPUSH PRN PRN PRN Reason: Heparin Heparin Sodium (Porcine) (Heparin -) 5,000 unit IVPUSH PRN PRN PRN Reason: Heparin Heparin Sodium (Porcine) 25, (000 unit/ Sodium Chloride) 500 mls @ 20 mls/hr IV TITR MARV; 1,000 UNIT/HR PRN Reason: Protocol Last Titration: 05/23/16 08:44 Dose: 650 unit/hr Insulin Aspart (Novolog Vial Sliding Scale -) 1 vial SQ ACHS MARV PRN Reason: Protocol Last Admin: 05/23/16 08:44 Dose: Not Given Mupirocin (Bactroban Ointment (For Decolonization) -) 1 applic NS BID [facility] Stop: 05/27/16 21:59 Last Admin: 05/23/16 00:03 Dose: Not Given Ondansetron HCl (Zofran Injection) 4 mg IVPB Q6H PRN PRN Reason: NAUSEA Constitutional: Yes: Awake and alert, NAD Eyes: Yes: Conjunctiva Clear, EOM Intact, PERRL HENT: Yes: Atraumatic, Normocephalic Neck: Yes: Supple, Trachea Midline. No: Lymphadenopathy Cardiovascular: Yes: Regular Rate and Rhythm, S1, S2. No: Murmur, Rub Respiratory: Yes: CTA Bilaterally, On NRBM, No: Accessory Muscle Use Gastrointestinal: Yes: Normal Bowel Sounds, Soft ...Rectal Exam: Yes: Deferred Renal/: Yes: WNL Breast(s): Yes: WNL Musculoskeletal: Yes: Muscle Pain Extremities: Yes: WNL. No: Cyanosis, Delayed Capillary Refill, Other (No clubbing) Edema: No Integumentary: Yes: WNL Neurological: Yes: WNL, Alert, Oriented, Non-focal ...Motor Strength: WNL Psychiatric: Yes: WNL Labs: Laboratory Results - last 24 hr 05/22/16 05/22/16 05/22/16 15:00 15:05 15:05 WBC 9.0 RBC 4.68 Hgb 14.3 Hct 43.3 MCV 92.6 MCHC 33.0 RDW 14.4 Plt Count 114 L MPV 9.5 Neutrophils % 63.9 Lymphocytes % 22.9 Monocytes % 9.8 Eosinophils % 2.9 Basophils % 0.5 INR 1.02 PTT (Actin FS) D-Dimer Puncture Site ABG pH ABG pCO2 at Pt Temp ABG pO2 at Pt Temp ABG HCO3 ABG O2 Sat (Measured) ABG O2 Content ABG Base Excess Charli Test O2 Delivery Device Oxygen Flow Rate Sodium Potassium Chloride Carbon Dioxide Anion Gap BUN Creatinine Creat Clearance w eGFR POC Glucometer Random Glucose Lactic Acid Calcium Magnesium Total Bilirubin AST ALT Alkaline Phosphatase Creatine Kinase Troponin I B-Natriuretic Peptide 1792.44 H Total Protein Albumin 05/22/16 05/22/16 05/22/16 15:05 15:45 17:06 WBC RBC Hgb Hct MCV MCHC RDW Plt Count MPV Neutrophils % Lymphocytes % Monocytes % Eosinophils % Basophils % INR PTT (Actin FS) D-Dimer Cancelled Puncture Site Right radial ABG pH 7.46 H ABG pCO2 at Pt Temp 29.1 L ABG pO2 at Pt Temp 58.6 L ABG HCO3 20.4 L ABG O2 Sat (Measured) 89.3 L ABG O2 Content 17.0 ABG Base Excess -1.9 Charli Test Positive O2 Delivery Device Venti mask Oxygen Flow Rate 50% Sodium 140 Potassium 4.1 Chloride 103 Carbon Dioxide 23 Anion Gap 14 BUN 16 Creatinine 1.3 H Creat Clearance w eGFR 39.41 POC Glucometer Random Glucose 133 H Lactic Acid Calcium 9.4 Magnesium Total Bilirubin 0.5 AST 16 ALT 12 Alkaline Phosphatase 71 Creatine Kinase 111 Troponin I 0.04 B-Natriuretic Peptide Total Protein 7.6 Albumin 3.8 05/22/16 05/22/16 05/22/16 17:06 20:20 20:20 WBC RBC Hgb Hct MCV MCHC RDW Plt Count MPV Neutrophils % Lymphocytes % Monocytes % Eosinophils % Basophils % INR PTT (Actin FS) 33.8 D-Dimer 4383 H Puncture Site ABG pH ABG pCO2 at Pt Temp ABG pO2 at Pt Temp ABG HCO3 ABG O2 Sat (Measured) ABG O2 Content ABG Base Excess Charli Test O2 Delivery Device Oxygen Flow Rate Sodium Potassium Chloride Carbon Dioxide Anion Gap BUN Creatinine Creat Clearance w eGFR POC Glucometer Random Glucose Lactic Acid 2.139 H* Calcium Magnesium Total Bilirubin AST ALT Alkaline Phosphatase Creatine Kinase Troponin I B-Natriuretic Peptide Total Protein Albumin 05/22/16 05/22/16 05/23/16 23:00 23:08 05:00 WBC 7.5 RBC 4.24 Hgb 13.1 Hct 39.1 MCV 92.2 MCHC 33.4 RDW 14.1 Plt Count 108 L MPV 9.5 Neutrophils % 59.4 Lymphocytes % 25.9 Monocytes % 11.4 H Eosinophils % 2.8 Basophils % 0.5 INR PTT (Actin FS) 161.5 H D D-Dimer Puncture Site ABG pH ABG pCO2 at Pt Temp ABG pO2 at Pt Temp ABG HCO3 ABG O2 Sat (Measured) ABG O2 Content ABG Base Excess Charli Test O2 Delivery Device Oxygen Flow Rate Sodium Potassium Chloride Carbon Dioxide Anion Gap BUN Creatinine Creat Clearance w eGFR POC Glucometer 122.05330 Random Glucose Lactic Acid Calcium Magnesium Total Bilirubin AST ALT Alkaline Phosphatase Creatine Kinase Troponin I B-Natriuretic Peptide Total Protein Albumin 05/23/16 05/23/16 05/23/16 05:00 05:00 05:37 WBC RBC Hgb Hct MCV MCHC RDW Plt Count MPV Neutrophils % Lymphocytes % Monocytes % Eosinophils % Basophils % INR 1.23 H PTT (Actin FS) D-Dimer Puncture Site ABG pH ABG pCO2 at Pt Temp ABG pO2 at Pt Temp ABG HCO3 ABG O2 Sat (Measured) ABG O2 Content ABG Base Excess Charli Test O2 Delivery Device Oxygen Flow Rate Sodium 142 Potassium 3.8 Chloride 109 H Carbon Dioxide 22 Anion Gap 11 BUN 13 Creatinine 1.1 H Creat Clearance w eGFR 47.79 POC Glucometer 109.72052 Random Glucose 92 D Lactic Acid Calcium 8.7 Magnesium 1.8 Total Bilirubin 0.5 AST 15 ALT 9 L D Alkaline Phosphatase 63 Creatine Kinase 94 Troponin I 0.09 H B-Natriuretic Peptide 7109.98 H Total Protein 6.5 Albumin 3.2 L 05/23/16 06:50 WBC RBC Hgb Hct MCV MCHC RDW Plt Count MPV Neutrophils % Lymphocytes % Monocytes % Eosinophils % Basophils % INR PTT (Actin FS) 77.1 H D D-Dimer Puncture Site ABG pH ABG pCO2 at Pt Temp ABG pO2 at Pt Temp ABG HCO3 ABG O2 Sat (Measured) ABG O2 Content ABG Base Excess Charli Test O2 Delivery Device Oxygen Flow Rate Sodium Potassium Chloride Carbon Dioxide Anion Gap BUN Creatinine Creat Clearance w eGFR POC Glucometer Random Glucose Lactic Acid Calcium Magnesium Total Bilirubin AST ALT Alkaline Phosphatase Creatine Kinase Troponin I B-Natriuretic Peptide Total Protein Albumin Problem List - Problems (1) Acute respiratory failure with hypoxemia Code(s): J96.01 - ACUTE RESPIRATORY FAILURE WITH HYPOXIA (2) DVT (deep venous thrombosis) Code(s): I82.409 - ACUTE EMBOLISM AND THOMBOS UNSP DEEP VN UNSP LOWER EXTREMITY (3) Pulmonary embolism with acute cor pulmonale Code(s): I26.09 - OTHER PULMONARY EMBOLISM WITH ACUTE COR PULMONALE Qualifiers : Pulmonary embolism type: other Chronicity: acute Qualified Code( s): I26.09 - Other pulmonary embolism with acute cor pulmonale (4) Subacute massive pulmonary embolism Code(s): I26.99 - OTHER PULMONARY EMBOLISM WITHOUT ACUTE COR PULMONALE Assessment/Plan Submassive PE -> Currently hemodynamically stable. Remote Hx of DVT while on OCP Hx of 1 previous miscarriage PLAN: - Heparin gtt for full therapeutic goal - Fio2 for Spo2 >92 - IR consulted, will be assessed for catheter directed therapy - Systemic tPA if hemodynamically unstable - Check and trend BNP - Repeat TTE in few days - PO as tolerated - ICU monitoring Dr Kc CCTime 35"
--- NOTE | 2016-05-23 13:30 | EKG ---
Test Reason : Blood Pressure : / mmHG Vent. Rate : 090 BPM Atrial Rate : 090 BPM P-R Int : 192 ms QRS Dur : 082 ms QT Int : 402 ms P-R-T Axes : 036 -05 -16 degrees QTc Int : 491 ms NORMAL SINUS RHYTHM ANTERIOR INFARCT (CITED ON OR BEFORE 22-MAY-2016) WITH T WAVE INVERSION T WAVE ABNORMALITY, CONSIDER INFERIOR ISCHEMIA ABNORMAL ECG WHEN COMPARED WITH ECG OF 22-MAY-2016 14:54, SERIAL CHANGES OF ANTERIOR INFARCT PRESENT - T WAVE INVERSION IS SEEN VENT. RATE HAS DECREASED CLINICAL CORRELATION IS RECOMMENDED Confirmed by JAVI AVILA MD ([id number]) on 05/23/2016 1:29:40 PM Referred By: KRISTIE Confirmed By:JAVI AVILA MD
--- NOTE | 2016-05-23 13:40 | EKG ---
Test Reason : Blood Pressure : / mmHG Vent. Rate : 113 BPM Atrial Rate : 113 BPM P-R Int : 186 ms QRS Dur : 082 ms QT Int : 322 ms P-R-T Axes : 045 064 038 degrees QTc Int : 441 ms SINUS TACHYCARDIA POSSIBLE INFERIOR INFARCT , AGE UNDETERMINED ANTERIOR INFARCT , AGE UNDETERMINED POOR R WAVE PROGRESSION ABNORMAL ECG WHEN COMPARED WITH ECG OF 24-DEC-2008 08:21, VENT. RATE HAS INCREASED BY 44 BPM Confirmed by MARGARITA TRAN, JAVI ([id number]) on 05/23/2016 1:40:23 PM Referred By: Confirmed By:JAVI AVILA MD
[2016-05-23 15:21] LABS: ARTERIAL BLOOD GAS BASE EXCESS 1.1 meq/l (-2-2); ARTERIAL BLOOD GAS HCO3 23.7 meq/L (22-26); ARTERIAL BLOOD GAS PO2 70.9 mmHg (68-100)
[2016-05-23 15:22] LABS: ALLENS TEST POSITIVE; ART PUNCT SITE RIGHT RADIAL; ARTERIAL BLOOD GAS pH 7.47 (7.35-7.45); LPM/O2% 100%; PT. ON O2? YES; TYPE OF O2 NRM
--- NOTE | 2016-05-23 16:54 | CONSULT ---
Consult Consult Specialty:: Hematology/Oncology Referred by:: Reason for Consultation:: extensive new bilateral pulmonary embolism and mediastinal lemphadenopathy concerning for lymphoma - History of Present Illness Chief Complaint: Short of breath, lightheaded History of Present Illness: is a very pleasant 81 y/o AAF with Hx of untreated asymptomatic sarcoidosis, LE DVT while on OCP 40 yrs ago,HLD, DM and mild smoker for 10-15 years who presented with dyspnea and lightheadedness of sudden onset. Work-up in the ED and on admission revealed she had sinus tachycardia, right heart strain and CT showed the presence of bilateral extensive PE along with mediastinal adenopathy in all mediastinal chains. She is now being closely monitored in the ICU on a heparin drip. On speaking with the patient, she states that she continues to have some pain on breathing and dyspnea. She was noted to be on a NRB mask. 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 No: Asthma, Bronchitis, Cancer, COPD, O2 Dependent, Pneumonia, Previously Intubated, Pulmonary Embolus, Pulmonary Fibrosis, Sleep Apnea Gastrointestinal: No: Ascites, Cancer, Constipation, Crohn's Disease, Diverticulitis, Diverticulosis, Esophageal Varices, Gastritis, GERD, GI Bleed, Hemorrhoids, Hiatal Hernia, Inflamatory Bowel Disease, Irritable Bowel Disease, Pancreatitis, Peptic Ulcer Disease, Ulcerative Colitis, Other Hepatobiliary: No: Cirrhosis, Cholelithiasis, Cholecystitis, Choledocholithiasis , Hepatitis A, Hepatitis B, Hepatitis C, Other Renal/: No: Renal Failure, Renal Inusuff, BPH, Cancer, Hematuria, Hemodialysis , Neurogenic Bladder, Renal Calculi, UTI, Other Reproductive: No: Ectopic , Endometriosis, Fibroids, PID, Polycystic Ovary Syndrome, Postmenopausal, Other ...: No Heme/Onc: No: Anemia, B12 Deficiency, Bleeding Disorder, Cancer, Current Chemotherapy, Current Radiation Therapy, Hemochromatosis, Hypercoaguable State, Myeloproliferative Synd, Sickle Cell Disease, Sickle Cell Trait, Thrombocytopenia, Other Infectious Disease: No: AIDS, C-Diff, Herpes Zoster, HIV, MRSA, STD's, Tuberculosis, VREF, Other Psych: No: Addictions, Anxiety, Bipolar, Depression, Panic, Psychosis, Schizophrenia, Other Musculoskeletal: No: Bursitis, Chronic low back pain, Hemiparesis, Hemiplegia, Osteoarthritis, Paraplegia, Other Rheumatology: No: Fibromyalgia, Gout, Lupus, Rheumatoid Arthritis, Sarcoidosis, Vasculitis, Other Endocrine: Yes: Diabetes Mellitus. No: [place]'s Disease, Arnold's Disease, Diabetes Insipidus, Hyperparathyroidism, Hyperthyroidism, Hypothyroidism, Osteopenia, SIADH, Other Dermatology: No: Basal Cell, Cellulitis, Eczema, Melanoma, Psoriasis, Squamous Cell, Other Additional Medical History: one miscarriage - Alcohol/Substance Use History of Substance Use: reports: None - Smoking History Smoking history: Former smoker (daily light smoker for 10-15 years) Have you smoked in the past 12 months: No If you are a former smoker, when did you quit?: 1969 - Social History Usual Living Arrangement: With Spouse ADL: Independent History of Recent Travel: No (No recent long auto either) Home Medications - Allergies Allergies/Adverse Reactions: Allergies Allergy/AdvReac Type Severity Reaction Status Date / Time cephalexin monohydrate Allergy Severe Rash Verified 05/22/16 14:24 [From Keflex] - Home Medications Home Medications: Ambulatory Orders Cholecalciferol (Vitamin D3) [Vitamin D-3] 2,000 unit PO DAILY 04/11/15 Metformin HCl [Glucophage] 1,000 mg PO BID 04/11/15 Family Disease History - Family Disease History Family History: Unremarkable Family Disease History: Other: Father (CVA) Physical Exam Vital Signs: Vital Signs Temperature 98.6 F 05/23/16 13:58 Pulse Rate 94 H 05/23/16 16:00 Respiratory Rate 23 05/23/16 16:00 Blood Pressure 118/91 05/23/16 16:00 O2 Sat by Pulse Oximetry (%) 99 05/23/16 11:40 Constitutional: Yes: Mild Distress Eyes: Yes: Conjunctiva Clear, EOM Intact, PERRL HENT: Yes: WNL Neck: Yes: WNL, Supple Cardiovascular: Yes: Tachycardia Respiratory: Yes: SOB on Exertion, Other (decreased breath sounds bilaterally) Gastrointestinal: Yes: WNL ...Rectal Exam: Yes: WNL Renal/: Yes: WNL Breast(s): Yes: WNL Musculoskeletal: Yes: WNL Extremities: Yes: WNL Integumentary: Yes: WNL Neurological: Yes: WNL Labs: CBC, BMP 05/23/16 05:00 05/23/16 05:00 Problem List - Problems (1) DVT (deep venous thrombosis) Code(s): I82.409 - ACUTE EMBOLISM AND THOMBOS UNSP DEEP VN UNSP LOWER EXTREMITY (2) Pulmonary embolism with acute cor pulmonale Code(s): I26.09 - OTHER PULMONARY EMBOLISM WITH ACUTE COR PULMONALE Qualifiers : Pulmonary embolism type: other Chronicity: acute Qualified Code( s): I26.09 - Other pulmonary embolism with acute cor pulmonale (3) Lymphadenopathy Code(s): R59.1 - GENERALIZED ENLARGED LYMPH NODES Assessment/Plan 81 y/o female with new submassive PE and mediastinal lymphadenopathy - agree with heparin gtt, IR and tPA standby - would recommend bridging patient to low molecular weight heaprin in the setting of possible malignancy -continue to monitor patient in ICU setting -hold off hypercoagulable work-up in the setting of acute PE, she had a provoked DVT 40 years ago while on OCP, low suspicion for an inherited thrombophilia -although she has a history of sarcoidosis, given extensive adenopathy and submassive PE presentation, would perform a core biopsy for working up lymphoma on the most easily accessible lymph node when hymodyanamically stable , would discuss this with IR -patient agreeable to lymph node biopsy when stable -will continue to follow with you closely
[2016-05-23] MEDS ORDERED: PT OWN MED DRAWER 7, Y5N ONE (17:53)
[2016-05-23] MEDS: HEPARIN - 25,000 UNIT in SODIUM CHLORIDE 495 ML IV SCH (17:54)
[2016-05-24 06:14] LABS: BASOPHIL 0.5 % (0-2.0); EOSINOPHIL 3.7 % (0-4.5); MCH 31.4 pg (25.7-33.7); MCHC 33.8 g/dl (32.0-36.0); MEAN CELL VOLUME 93.1 fl (80-96); MEAN PLT VOLUME 9.4 fl (7.5-11.1); NEUTROPHILS 63.1 % (42.8-82.8); PLATELET COUNT 102 K/MM3 (134-434); RDW 14.2 % (11.6-15.6); WHITE BLOOD COUNT 7.6 K/mm3 (4.0-10.0)
[2016-05-24 06:22] LABS: INR 1.21 (0.82-1.09); PROTHROMBIN TIME (PATIENT) 13.4 SEC (9.98-11.88)
[2016-05-24 06:52] LABS: CALCIUM 8.4 mg/dL (8.5-10.1)
[2016-05-24] MEDS: INSULIN SLIDING SCALE (NOVOLOG) 1 VIAL SQ SCH ×4 (06:56→22:48)
--- NOTE | 2016-05-24 07:51 | PN ---
Physical Exam: SUBJECTIVE: Patient seen and examined at the bedside, pt states cough and breathing are getting better; chest pain has also improved from yesterday, and has localized only to the back, now. She also states that she has pain to the right anterior thigh. She also had a period of confusion last night, however is now reoriented. Pt denies any dyspnea, dizziness, headache. On non-rebreather mask Continue heparin gtt Current Medications Generic Name Dose Route Start Last Admin Trade Name Freq PRN Reason Stop Dose Admin Acetaminophen 650 mg 05/22/16 16:36 05/23/16 13:12 Tylenol - PO 650 mg Q6H PRN Administration FEVER OR PAIN Chlorhexidine Gluconate 1 applic 05/22/16 22:00 05/23/16 22:07 Hibiclens For Decolonization - TP 1 applic HS MARV Administration Docusate Sodium 100 mg 05/24/16 08:54 Colace - PO BID PRN CONSTIPATION Heparin Sodium (Porcine) 1,000 unit 05/22/16 16:43 05/24/16 07:52 Heparin - IVPUSH 1,000 unit PRN PRN Administration Heparin Heparin Sodium (Porcine) 5,000 unit 05/22/16 16:43 Heparin - IVPUSH PRN PRN Heparin Heparin Sodium (Porcine) 25, 500 mls @ 20 mls/hr 05/22/16 16:45 05/24/16 07:52 000 unit/ Sodium Chloride IV 750 unit/hr TITR MARV Titration Protocol 1,000 UNIT/HR Insulin Aspart 1 vial 05/22/16 22:00 05/24/16 11:12 Novolog Vial Sliding Scale - SQ 2 units ACHS MARV Administration Protocol Mupirocin 1 applic 05/22/16 22:00 05/24/16 10:03 Bactroban Ointment (For Decolonization) - NS 05/27/16 21:59 1 applic BID MARV Administration Ondansetron HCl 4 mg 05/22/16 16:36 Zofran Injection IVPB Q6H PRN NAUSEA Objective: Vital Signs Period Temp Pulse Resp BP Sys/Reynoso Pulse Ox Last 24 Hr 98.2 F-98.6 F 87-100 17-26 115-138/72-95 97-99 GENERAL: The patient is awake, alert, and fully oriented. LUNGS: Breathing even and unlabored at rest. Breath sounds equal, clear to auscultation bilaterally. HEART: Regular rate and rhythm, S1, S2 without murmur, rub or gallop. ABDOMEN: Soft, nontender, nondistended, normoactive bowel sounds. EXTREMITIES: 2+ pulses equal and bilateral, warm, no edema. Right anterior thigh tenderness. NEUROLOGICAL: CN II through XII grossly intact. Normal speech, gait not observed. PSYCH: Normal mood, normal affect. SKIN: Warm, dry, normal turgor, no rashes or lesions noted ABG Results ABG pH 7.47 (7.35-7.45) H 05/23/16 15:20 ABG pCO2 at Pt Temp 32.7 mmHg (35-45) L 05/23/16 15:20 ABG pO2 at Pt Temp 70.9 mmHg (68-100) D 05/23/16 15:20 ABG HCO3 23.7 meq/L (22-26) 05/23/16 15:20 ABG O2 Sat (Measured) 94.0 % (90-98.9) 05/23/16 15:20 ABG O2 Content 17.3 % vol (15-22) 05/23/16 15:20 ABG Base Excess 1.1 meq/l (-2-2) 05/23/16 15:20 CBCD WBC 7.6 K/mm3 (4.0-10.0) 05/24/16 05:00 RBC 4.30 M/mm3 (3.60-5.2) 05/24/16 05:00 Hgb 13.5 GM/dL (10.7-15.3) 05/24/16 05:00 Hct 40.0 % (32.4-45.2) 05/24/16 05:00 MCV 93.1 fl (80-96) 05/24/16 05:00 MCHC 33.8 g/dl (32.0-36.0) 05/24/16 05:00 RDW 14.2 % (11.6-15.6) 05/24/16 05:00 Plt Count 102 K/MM3 (134-434) L 05/24/16 05:00 MPV 9.4 fl (7.5-11.1) 05/24/16 05:00 CMP Sodium 143 mmol/L (136-145) 05/24/16 05:00 Potassium 4.0 mmol/L (3.5-5.1) 05/24/16 05:00 Chloride 110 mmol/L (98-107) H 05/24/16 05:00 Carbon Dioxide 24 mmol/L (21-32) 05/24/16 05:00 Anion Gap 9 (8-16) 05/24/16 05:00 BUN 15 mg/dL (7-18) 05/24/16 05:00 Creatinine 1.0 mg/dL (0.55-1.02) 05/24/16 05:00 Creat Clearance w eGFR 47.79 (>60) 05/23/16 05:00 Random Glucose 117 mg/dL (74-106) H D 05/24/16 05:00 Calcium 8.4 mg/dL (8.5-10.1) L 05/24/16 05:00 Total Bilirubin 0.5 mg/dL (0.2-1.0) 05/23/16 05:00 AST 15 U/L (15-37) 05/23/16 05:00 ALT 9 U/L (12-78) L D 05/23/16 05:00 Alkaline Phosphatase 63 U/L (45-117) 05/23/16 05:00 Total Protein 6.5 g/dl (6.4-8.2) 05/23/16 05:00 Albumin 3.2 g/dl (3.4-5.0) L 05/23/16 05:00 CARDIAC ENZYMES Creatine Kinase 94 IU/L (26-192) 05/23/16 05:00 Troponin I 0.09 ng/ml (0.00-0.05) H 05/23/16 05:00 Imaging - CXR (05/22/16): No evidence of pneumonia, CHF, pleural effusion or pneumothorax. - Vascular Duplex (05/22/16): Right lower extremity there is extensive largely nonocclusive thrombus within the common and superficial femoral veins as well as the popliteal vein; these veins are incompletely compressible. No evidence of DVT on the left side. - Chest CTA (05/22/16): extensive bilateral pulmonary embolism noted within the right upper and lower lobe pulmonary arteries, as well as the bifurcation of the left main pulmonary artery, extensive lymphadenopathy involving all mediastinal chains. The heart is not enlarged, there is not thoracic aortic aneuysm or dissection. No pulmonary masses or pleural effusions, no gallbladder abnormalities. - Echo (05/22/16): RV mod to severely dilated, RVSF severely reduced. Mod TR, Elevated right ventricular systolic pressure. Severe pulmonary HTN, Flattened septum consistent with RV pressure overload - EKG (05/23/16): Normal Sinus Rhythm, new T wave inversion from past EKG. ASSESSMENT: This is a 81 year old female with a PMH of lower extremity DVT x40 years ago while on OCP (without hypercoaguable workup), HLD, pulmonary sarcoidosis, NIDDM, past smoker, who presented to the ED complaining of shortness of breath, sudden onset of lightheadedness, MAURO and mild right calf pain and swelling for several weeks. She was admitted and found to have submassive PE, DVT to right LE and extensive mediastinal lymphadenopathy on CTA. PLAN: Pulmonary: Submassive Pulmonary Embolism/extensive DVT: with right heart strain - Pt is hemodynamically stable; no hypertension observed - Consider systemic tPA if becomes hemodynamically unstable - IR consult - given evidence of right heart strain, per DOCUMENT MANAGEMENT CONSULTANT note from yesterday , discussed possible intervention with Dr. Goldman; follow-up - Remains on heparin gtt - Likely transition to Lovenox prior to discharge given possible malignancy diagnosis - Needs hypercoaguable workup as outpatient - Follow up past Echo with Dr. Tavo Santana. Acute Respiratory Failure 2/2 Pulmonary embolism - Improving - Supplemental O2 as needed to maintain saturation - ABG improved: 7.47/32.7/70.9/23.7 (PO2 improved to 70.9 on 100% FiO2 NRBM) Sarcoidosis: history of - No active issues Heme/onc: Mediastinal lymphadenopathy: - Incidental noted on CTA is extensive lymphadenopathy involving all mediastinal chains - Will need hypercoaguable workup and lymph node biopsy once stable - Bridge heparin to low molecular weight heparin in presence of possible malignancy, when stable and prior to discharge. - Appreciate oncology consult Endocrine: DM - FS ACHS - Insulin Sliding scale - Diabetic diet when resumes PO F/E/N: - Stool softener, Colace BID - Diabetic diet Prophylaxis - Therapeutic Heparin gtt Disposition: Continues to require inpatient ICU care. CODE STATUS: FULL CODE Visit type - Emergency Visit Emergency Visit: Yes ED Registration Date: 05/22/16 Care time: The patient presented to the Emergency Department on the above date and was hospitalized for further evaluation of their emergent condition. - New Patient This patient is new to me today: No - Critical Care Critical Care patient: Yes Total Critical Care Time (in minutes): 35 Critical Care Statement: The care of this patient involved high complexity decision making to prevent further life threatening deterioration of the patient 's condition and/or to evalute & treat vital organ system(s) failure or risk of failure.
[2016-05-24] MEDS: HEPARIN NA (PORCINE) 5,000 UNITS/ML 1ML VIAL IVPUSH PRN (07:52)
--- NOTE | 2016-05-24 09:52 | PN ---
Progress Note (short form) - Note Progress Note: Patient seen and examined in the ICU. Awake and alert on 100% NRBM. Feel about the same as yesterday. Mildly tachypneic at rest. Remains on IV Heparin. Heme/Onc consult noted. Intake & Output 05/21/16 05/22/16 05/23/16 05/24/16 23:59 23:59 23:59 23:59 Intake Total 100 1834 256 Output Total 200 500 Balance -100 1334 256 Weight 189 lb 11.2 oz 189 lb 11.2 oz 190 lb Last Vital Signs Temp Pulse Resp BP Pulse Ox 98.4 F 89 20 138/100 97 05/24/16 06:00 05/24/16 08:00 05/24/16 08:27 05/24/16 08:00 05/24/16 08:39 Active Medications Acetaminophen (Tylenol -) 650 mg PO Q6H PRN PRN Reason: FEVER OR PAIN Last Admin: 05/23/16 13:12 Dose: 650 mg Chlorhexidine Gluconate (Hibiclens For Decolonization -) 1 applic TP HS MARV Last Admin: 05/23/16 22:07 Dose: 1 applic Docusate Sodium (Colace -) 100 mg PO BID PRN PRN Reason: CONSTIPATION Heparin Sodium (Porcine) (Heparin -) 1,000 unit IVPUSH PRN PRN PRN Reason: Heparin Last Admin: 05/24/16 07:52 Dose: 1,000 unit Heparin Sodium (Porcine) (Heparin -) 5,000 unit IVPUSH PRN PRN PRN Reason: Heparin Heparin Sodium (Porcine) 25, (000 unit/ Sodium Chloride) 500 mls @ 20 mls/hr IV TITR MARV; 1,000 UNIT/HR PRN Reason: Protocol Last Titration: 05/24/16 07:52 Dose: 750 unit/hr Insulin Aspart (Novolog Vial Sliding Scale -) 1 vial SQ ACHS MARV PRN Reason: Protocol Last Admin: 05/24/16 06:56 Dose: Not Given Mupirocin (Bactroban Ointment (For Decolonization) -) 1 applic NS BID MARV Stop: 05/27/16 21:59 Last Admin: 05/23/16 22:07 Dose: 1 applic Ondansetron HCl (Zofran Injection) 4 mg IVPB Q6H PRN PRN Reason: NAUSEA Constitutional: Yes: Awake and alert, Mildly tachypneic at rest Eyes: Yes: Conjunctiva Clear, EOM Intact, PERRL HENT: Yes: Atraumatic, Normocephalic Neck: Yes: Supple, Trachea Midline. No: Lymphadenopathy Cardiovascular: Yes: Regular Rate and Rhythm, S1, S2. No: Murmur, Rub Respiratory: Yes: CTA Bilaterally, On NRBM, No: Accessory Muscle Use Gastrointestinal: Yes: Normal Bowel Sounds, Soft ...Rectal Exam: Yes: Deferred Renal/: Yes: WNL Breast(s): Yes: WNL Musculoskeletal: Yes: Muscle Pain Extremities: Yes: WNL. No: Cyanosis, Delayed Capillary Refill, Other (No clubbing) Edema: No Integumentary: Yes: WNL Neurological: Yes: WNL, Alert, Oriented, Non-focal ...Motor Strength: WNL Psychiatric: Yes: WNL Labs: Laboratory Results - last 24 hr 05/23/16 05/23/16 05/23/16 11:08 15:20 17:09 WBC RBC Hgb Hct MCV MCHC RDW Plt Count MPV Neutrophils % Lymphocytes % Monocytes % Eosinophils % Basophils % INR PTT (Actin FS) Puncture Site Right radial ABG pH 7.47 H ABG pCO2 at Pt Temp 32.7 L ABG pO2 at Pt Temp 70.9 D ABG HCO3 23.7 ABG O2 Sat (Measured) 94.0 ABG O2 Content 17.3 ABG Base Excess 1.1 Charli Test Positive O2 Delivery Device Nrm Oxygen Flow Rate 100% Sodium Potassium Chloride Carbon Dioxide Anion Gap BUN Creatinine POC Glucometer 164.53583 181.14882 Random Glucose Calcium 05/23/16 05/24/16 05/24/16 22:15 05:00 05:00 WBC 7.6 RBC 4.30 Hgb 13.5 Hct 40.0 MCV 93.1 MCHC 33.8 RDW 14.2 Plt Count 102 L MPV 9.4 Neutrophils % 63.1 Lymphocytes % 21.9 Monocytes % 10.8 H Eosinophils % 3.7 Basophils % 0.5 INR PTT (Actin FS) 44.3 H D Puncture Site ABG pH ABG pCO2 at Pt Temp ABG pO2 at Pt Temp ABG HCO3 ABG O2 Sat (Measured) ABG O2 Content ABG Base Excess Charli Test O2 Delivery Device Oxygen Flow Rate Sodium Potassium Chloride Carbon Dioxide Anion Gap BUN Creatinine POC Glucometer 133.35272 Random Glucose Calcium 05/24/16 05/24/16 05:00 05:00 WBC RBC Hgb Hct MCV MCHC RDW Plt Count MPV Neutrophils % Lymphocytes % Monocytes % Eosinophils % Basophils % INR 1.21 H PTT (Actin FS) Puncture Site ABG pH ABG pCO2 at Pt Temp ABG pO2 at Pt Temp ABG HCO3 ABG O2 Sat (Measured) ABG O2 Content ABG Base Excess Charli Test O2 Delivery Device Oxygen Flow Rate Sodium 143 Potassium 4.0 Chloride 110 H Carbon Dioxide 24 Anion Gap 9 BUN 15 Creatinine 1.0 POC Glucometer Random Glucose 117 H D Calcium 8.4 L Problem List - Problems (1) Acute respiratory failure with hypoxemia Code(s): J96.01 - ACUTE RESPIRATORY FAILURE WITH HYPOXIA (2) DVT (deep venous thrombosis) Code(s): I82.409 - ACUTE EMBOLISM AND THOMBOS UNSP DEEP VN UNSP LOWER EXTREMITY (3) Pulmonary embolism with acute cor pulmonale Code(s): I26.09 - OTHER PULMONARY EMBOLISM WITH ACUTE COR PULMONALE Qualifiers : Pulmonary embolism type: other Chronicity: acute Qualified Code( s): I26.09 - Other pulmonary embolism with acute cor pulmonale (4) Subacute massive pulmonary embolism Code(s): I26.99 - OTHER PULMONARY EMBOLISM WITHOUT ACUTE COR PULMONALE Assessment/Plan Submassive PE -> Currently hemodynamically stable. Remote Hx of DVT while on OCP Hx of 1 previous miscarriage PLAN: - Heparin gtt for full therapeutic goal - Fio2 for Spo2 >92 - Will D/W IR tomorrow for possible catheter directed therapy - Systemic tPA if hemodynamically unstable - Repeat TTE in few days - PO as tolerated - Continue ICU monitoring for tenuous status Dr Kc CCTime 35"
[2016-05-24] MEDS: MUPIROCIN 2% TOPICAL OINTMENT FOR DECOLONIZATION NS SCH ×2 (10:03→21:27)
--- NOTE | 2016-05-24 15:34 | PN ---
Progress Note (short form) - Note Progress Note: Oncology follow-up note S : Patient pleasant and talkative when visited. Daughter and grandson at bedside. She says her pain in the chest has improved. Last Vital Signs Temp Pulse Resp BP Pulse Ox 98.6 F 93 H 26 H 118/81 97 05/24/16 14:00 05/24/16 14:00 05/24/16 14:00 05/24/16 14:00 05/24/16 08:39 Physical Exam : AOX3, pleasant on NRB mask s1s2 WNL, Tachycardia soft abdomen No c/c/e nonfocal neuro exam CBC, BMP 05/24/16 05:00 05/24/16 05:00 Current Medications Generic Name Dose Route Start Last Admin Trade Name Freq PRN Reason Stop Dose Admin Acetaminophen 650 mg 05/22/16 16:36 05/23/16 13:12 Tylenol - PO 650 mg Q6H PRN Administration FEVER OR PAIN Chlorhexidine Gluconate 1 applic 05/22/16 22:00 05/23/16 22:07 Hibiclens For Decolonization - TP 1 applic HS MARV Administration Docusate Sodium 100 mg 05/24/16 08:54 Colace - PO BID PRN CONSTIPATION Heparin Sodium (Porcine) 1,000 unit 05/22/16 16:43 05/24/16 07:52 Heparin - IVPUSH 1,000 unit PRN PRN Administration Heparin Heparin Sodium (Porcine) 5,000 unit 05/22/16 16:43 Heparin - IVPUSH PRN PRN Heparin Heparin Sodium (Porcine) 25, 500 mls @ 20 mls/hr 05/22/16 16:45 05/24/16 07:52 000 unit/ Sodium Chloride IV 750 unit/hr TITR MARV Titration Protocol 1,000 UNIT/HR Insulin Aspart 1 vial 05/22/16 22:00 05/24/16 11:12 Novolog Vial Sliding Scale - SQ 2 units ACHS MARV Administration Protocol Mupirocin 1 applic 05/22/16 22:00 05/24/16 10:03 Bactroban Ointment (For Decolonization) - NS 05/27/16 21:59 1 applic BID MARV Administration Ondansetron HCl 4 mg 05/22/16 16:36 Zofran Injection IVPB Q6H PRN NAUSEA 81 y/o female with new submassive PE and mediastinal lymphadenopathy - continue with heparin gtt, ICU team consulting IR for catheter guided therapy , tPA standby - would recommend bridging patient to low molecular weight heaprin in the setting of possible malignancy -continue to monitor patient in ICU setting -hold off hypercoagulable work-up in the setting of acute PE, she had a provoked DVT 40 years ago while on OCP, low suspicion for an inherited thrombophilia -although she has a history of sarcoidosis, given extensive adenopathy and submassive PE presentation, would perform a core biopsy for working up lymphoma on the most easily accessible lymph node when hymodyanamically stable , would discuss this with IR -patient agreeable to lymph node biopsy when stable -also obtain a CT Abdome/pelvis to complete staging work-up -will continue to follow with you Problem List - Problems (1) DVT (deep venous thrombosis) Code(s): I82.409 - ACUTE EMBOLISM AND THOMBOS UNSP DEEP VN UNSP LOWER EXTREMITY (2) Pulmonary embolism with acute cor pulmonale Code(s): I26.09 - OTHER PULMONARY EMBOLISM WITH ACUTE COR PULMONALE Qualifiers : Pulmonary embolism type: other Chronicity: acute Qualified Code( s): I26.09 - Other pulmonary embolism with acute cor pulmonale (3) Lymphadenopathy Code(s): R59.1 - GENERALIZED ENLARGED LYMPH NODES
[2016-05-24] MEDS: HEPARIN - 25,000 UNIT in SODIUM CHLORIDE 495 ML IV SCH (16:56)
[2016-05-24] MEDS: CHLORHEXIDINE GLUCONATE 4% CLEANSER FOR DECOLONIZATION TP SCH (21:27)
--- NOTE | 2016-05-25 00:40 | EKG ---
Test Reason : Blood Pressure : / mmHG Vent. Rate : 091 BPM Atrial Rate : 091 BPM P-R Int : 196 ms QRS Dur : 084 ms QT Int : 428 ms P-R-T Axes : 042 -12 -35 degrees QTc Int : 526 ms NORMAL SINUS RHYTHM T WAVE ABNORMALITY, CONSIDER INFERIOR ISCHEMIA T WAVE ABNORMALITY, CONSIDER ANTEROLATERAL ISCHEMIA PROLONGED QT ABNORMAL ECG WHEN COMPARED WITH ECG OF 23-MAY-2016 10:44, NO SIGNIFICANT CHANGE WAS FOUND Confirmed by JAVI AVILA MD ([id number]) on 05/25/2016 12:39:33 AM Referred By: Florinda MELENDEZ Confirmed By:JAVI AVILA MD
[2016-05-25] MEDS: HEPARIN - 25,000 UNIT in SODIUM CHLORIDE 495 ML IV SCH ×2 (05:40→12:00)
[2016-05-25 06:12] LABS: MCHC 33.5 g/dl (32.0-36.0); MEAN CELL VOLUME 92.4 fl (80-96); MEAN PLT VOLUME 9.4 fl (7.5-11.1); PLATELET COUNT 107 K/MM3 (134-434); RDW 14.2 % (11.6-15.6); WHITE BLOOD COUNT 6.9 K/mm3 (4.0-10.0)
[2016-05-25] MEDS: INSULIN SLIDING SCALE (NOVOLOG) 1 VIAL SQ SCH ×4 (06:26→22:45)
[2016-05-25 06:59] LABS: ALBUMIN 3.2 g/dl (3.4-5.0); ALK PHOS 65 U/L (45-117); ANION GAP 10 (8-16); BILIRUBIN,TOTAL 0.4 mg/dL (0.2-1.0); CALCIUM 8.7 mg/dL (8.5-10.1); CO2 26 mmol/L (21-32); CREATININE 0.9 mg/dL (0.55-1.02); GLUCOSE,RANDOM 98 mg/dL (74-106); PHOSPHOROUS 3.3 mg/dL (2.5-4.9); SGOT/AST 17 U/L (15-37); SGPT/ALT 11 U/L (12-78); TOT PROT 6.5 g/dl (6.4-8.2)
[2016-05-25] MEDS: HEPARIN NA (PORCINE) 5,000 UNITS/ML 1ML VIAL IVPUSH PRN ×2 (10:46→19:35)
[2016-05-25] MEDS: MUPIROCIN 2% TOPICAL OINTMENT FOR DECOLONIZATION NS SCH ×2 (10:57→21:15)
[2016-05-25] MEDS ORDERED: ALTEPLASE IVPB SCH (11:00)
[2016-05-25] MEDS ORDERED: WATER FOR INJ STERILE IVPB SCH (11:00)
[2016-05-25] MEDS ORDERED: ALTEPLASE 50MG 25 MG in SODIUM CHLORIDE 250 ML IVPB SCH (11:15)
--- NOTE | 2016-05-25 11:34 | PN ---
Progress Note (short form) - Note Progress Note: Patient seen and examined in the ICU. Awake and alert on 100% NRBM. Feel about the same as yesterday. Mildly tachypneic at rest. Remains on IV Heparin. For IR intervention today. Intake & Output 05/22/16 05/23/16 05/24/16 05/25/16 23:59 23:59 23:59 23:59 Intake Total 100 1834 1134 230 Output Total 200 500 Balance -100 1334 1134 230 Weight 189 lb 11.2 oz 189 lb 11.2 oz 190 lb 192 lb 6.4 oz Last Vital Signs Temp Pulse Resp BP Pulse Ox 98.6 F 79 14 131/88 100 05/25/16 06:00 05/25/16 11:02 05/25/16 06:00 05/25/16 06:00 05/25/16 11:02 Active Medications Acetaminophen (Tylenol -) 650 mg PO Q6H PRN PRN Reason: FEVER OR PAIN Last Admin: 05/23/16 13:12 Dose: 650 mg Chlorhexidine Gluconate (Hibiclens For Decolonization -) 1 applic TP HS [facility] Last Admin: 05/24/16 21:27 Dose: 1 applic Docusate Sodium (Colace -) 100 mg PO BID PRN PRN Reason: CONSTIPATION Heparin Sodium (Porcine) (Heparin -) 1,000 unit IVPUSH PRN PRN PRN Reason: Heparin Last Admin: 05/24/16 07:52 Dose: 1,000 unit Heparin Sodium (Porcine) (Heparin -) 5,000 unit IVPUSH PRN PRN PRN Reason: Heparin Heparin Sodium (Porcine) 25, (000 unit/ Sodium Chloride) 500 mls @ 20 mls/hr IV TITR MARV; 1,000 UNIT/HR PRN Reason: Protocol Last Titration: 05/25/16 10:58 Dose: 850 unit/hr Alteplase, Recombinant 25 mg/ (Sodium Chloride) 250 mls @ 5 mls/hr IVPB Q24H MARV Stop: 05/27/16 10:59 Insulin Aspart (Novolog Vial Sliding Scale -) 1 vial SQ ACHS MARV PRN Reason: Protocol Last Admin: 05/25/16 10:39 Dose: Not Given Mupirocin (Bactroban Ointment (For Decolonization) -) 1 applic NS BID MARV Stop: 05/27/16 21:59 Last Admin: 05/25/16 10:57 Dose: 1 applic Ondansetron HCl (Zofran Injection) 4 mg IVPB Q6H PRN PRN Reason: NAUSEA Constitutional: Yes: Awake and alert, Mildly tachypneic at rest Eyes: Yes: Conjunctiva Clear, EOM Intact, PERRL HENT: Yes: Atraumatic, Normocephalic Neck: Yes: Supple, Trachea Midline. No: Lymphadenopathy Cardiovascular: Yes: Regular Rate and Rhythm, S1, S2. No: Murmur, Rub Respiratory: Yes: CTA Bilaterally, On NRBM, No: Accessory Muscle Use Gastrointestinal: Yes: Normal Bowel Sounds, Soft ...Rectal Exam: Yes: Deferred Renal/: Yes: WNL Breast(s): Yes: WNL Musculoskeletal: Yes: Muscle Pain Extremities: Yes: WNL. No: Cyanosis, Delayed Capillary Refill, Other (No clubbing) Edema: No Integumentary: Yes: WNL Neurological: Yes: WNL, Alert, Oriented, Non-focal ...Motor Strength: WNL Psychiatric: Yes: WNL Labs: Laboratory Results - last 24 hr 05/24/16 05/24/16 05/24/16 11:04 13:42 16:29 WBC RBC Hgb Hct MCV MCHC RDW Plt Count MPV PTT (Actin FS) 52.5 H Sodium Potassium Chloride Carbon Dioxide Anion Gap BUN Creatinine Creat Clearance w eGFR POC Glucometer 160.34168 117.81552 Random Glucose Calcium Phosphorus Magnesium Total Bilirubin AST ALT Alkaline Phosphatase Total Protein Albumin 05/24/16 05/25/16 05/25/16 22:29 05:00 05:00 WBC 6.9 RBC 4.31 Hgb 13.3 Hct 39.8 MCV 92.4 MCHC 33.5 RDW 14.2 Plt Count 107 L MPV 9.4 PTT (Actin FS) 49.2 H Sodium Potassium Chloride Carbon Dioxide Anion Gap BUN Creatinine Creat Clearance w eGFR POC Glucometer 169.82258 Random Glucose Calcium Phosphorus Magnesium Total Bilirubin AST ALT Alkaline Phosphatase Total Protein Albumin 05/25/16 05/25/16 05:00 05:02 WBC RBC Hgb Hct MCV MCHC RDW Plt Count MPV PTT (Actin FS) Sodium 143 Potassium 4.3 Chloride 107 Carbon Dioxide 26 Anion Gap 10 BUN 13 Creatinine 0.9 Creat Clearance w eGFR > 60 POC Glucometer 107.90048 Random Glucose 98 Calcium 8.7 Phosphorus 3.3 Magnesium 2.0 Total Bilirubin 0.4 AST 17 ALT 11 L D Alkaline Phosphatase 65 Total Protein 6.5 Albumin 3.2 L Problem List - Problems (1) Acute respiratory failure with hypoxemia Code(s): J96.01 - ACUTE RESPIRATORY FAILURE WITH HYPOXIA (2) DVT (deep venous thrombosis) Code(s): I82.409 - ACUTE EMBOLISM AND THOMBOS UNSP DEEP VN UNSP LOWER EXTREMITY (3) Pulmonary embolism with acute cor pulmonale Code(s): I26.09 - OTHER PULMONARY EMBOLISM WITH ACUTE COR PULMONALE Qualifiers : Pulmonary embolism type: other Chronicity: acute Qualified Code( s): I26.09 - Other pulmonary embolism with acute cor pulmonale (4) Subacute massive pulmonary embolism Code(s): I26.99 - OTHER PULMONARY EMBOLISM WITHOUT ACUTE COR PULMONALE Assessment/Plan Submassive PE -> Currently hemodynamically stable. Remote Hx of DVT while on OCP Hx of 1 previous miscarriage PLAN: - IR intervention today / Possible LE lysis and IVC filter - Fio2 for Spo2 >92 - Repeat TTE in few days - PO as tolerated - Continue ICU monitoring for tenuous status Dr Kc CCTime 35"
[2016-05-25] MEDS ORDERED: ALTEPLASE 50MG 25 MG in SODIUM CHLORIDE 250 ML IVPB ONE (11:53)
--- NOTE | 2016-05-25 16:46 | PN ---
Physical Exam: SUBJECTIVE: Patient seen and examined. She denies any pain or discomfort. Reports dyspnea on minimal exertion . OBJECTIVE: Vital Signs Period Temp Pulse Resp BP Sys/Reynoso Pulse Ox Last 24 Hr 98.4 F-98.8 F 78-96 14-21 117-154/86-106 95-100 GENERAL: The patient is awake, alert, and fully oriented, in mild respiratory distress. HEAD: Normal with no signs of trauma. EYES: PERRL, extraocular movements intact, sclera anicteric, conjunctiva clear. No ptosis. ENT: Ears normal, nares patent, oropharynx clear without exudates, moist mucous membranes. NECK: Trachea midline, full range of motion, supple. LUNGS: anterior lungs with clear breath sounds, posterior lower lobes with fine crackles. HEART: Regular rate and rhythm ABDOMEN: Soft, nontender, non-distended, normoactive bowel sounds, no guarding, no rebound, no hepatosplenomegaly, no masses. EXTREMITIES: left NEUROLOGICAL: Cranial nerves II through XII grossly intact. Normal speech, gait not observed. PSYCH: Normal mood, normal affect. SKIN: Warm, dry, normal turgor, no rashes or lesions noted Laboratory Results - last 24 hr 05/24/16 05/24/16 05/25/16 16:29 22:29 05:00 WBC 6.9 RBC 4.31 Hgb 13.3 Hct 39.8 MCV 92.4 MCHC 33.5 RDW 14.2 Plt Count 107 L MPV 9.4 PTT (Actin FS) Sodium Potassium Chloride Carbon Dioxide Anion Gap BUN Creatinine Creat Clearance w eGFR POC Glucometer 117.31232 169.59015 Random Glucose Calcium Phosphorus Magnesium Total Bilirubin AST ALT Alkaline Phosphatase Total Protein Albumin 05/25/16 05/25/16 05/25/16 05:00 05:00 05:02 WBC RBC Hgb Hct MCV MCHC RDW Plt Count MPV PTT (Actin FS) 49.2 H Sodium 143 Potassium 4.3 Chloride 107 Carbon Dioxide 26 Anion Gap 10 BUN 13 Creatinine 0.9 Creat Clearance w eGFR > 60 POC Glucometer 107.11096 Random Glucose 98 Calcium 8.7 Phosphorus 3.3 Magnesium 2.0 Total Bilirubin 0.4 AST 17 ALT 11 L D Alkaline Phosphatase 65 Total Protein 6.5 Albumin 3.2 L 05/25/16 10:39 WBC RBC Hgb Hct MCV MCHC RDW Plt Count MPV PTT (Actin FS) Sodium Potassium Chloride Carbon Dioxide Anion Gap BUN Creatinine Creat Clearance w eGFR POC Glucometer 152.29274 Random Glucose Calcium Phosphorus Magnesium Total Bilirubin AST ALT Alkaline Phosphatase Total Protein Albumin Active Medications Generic Name Dose Route Start Last Admin Trade Name Freq PRN Reason Stop Dose Admin Acetaminophen 650 mg 05/22/16 16:36 05/23/16 13:12 Tylenol - PO 650 mg Q6H PRN Administration FEVER OR PAIN Chlorhexidine Gluconate 1 applic 05/22/16 22:00 05/24/16 21:27 Hibiclens For Decolonization - TP 1 applic HS MARV Administration Docusate Sodium 100 mg 05/24/16 08:54 Colace - PO BID PRN CONSTIPATION Heparin Sodium (Porcine) 1,000 unit 05/22/16 16:43 05/24/16 07:52 Heparin - IVPUSH 1,000 unit PRN PRN Administration Heparin Heparin Sodium (Porcine) 5,000 unit 05/22/16 16:43 Heparin - IVPUSH PRN PRN Heparin Heparin Sodium (Porcine) 25, 500 mls @ 20 mls/hr 05/22/16 16:45 05/25/16 10:58 000 unit/ Sodium Chloride IV 850 unit/hr TITR MARV Titration Protocol 1,000 UNIT/HR Alteplase, Recombinant 25 mg/ 250 mls @ 5 mls/hr 05/25/16 11:53 05/25/16 13:50 Sodium Chloride IVPB 05/27/16 13:14 5 mls/hr ONCE ONE Administration Insulin Aspart 1 vial 05/22/16 22:00 05/25/16 10:39 Novolog Vial Sliding Scale - SQ Not Given ACHS MARV Protocol Mupirocin 1 applic 05/22/16 22:00 05/25/16 10:57 Bactroban Ointment (For Decolonization) - NS 05/27/16 21:59 1 applic BID MARV Administration Ondansetron HCl 4 mg 05/22/16 16:36 Zofran Injection IVPB Q6H PRN NAUSEA ASSESSMENT/PLAN: Patient is an 81 year old female with a significant past medical history of lower extremity DVT apx 40 years ago while on control pills, hyperlipidemia, pulmonary sarcoidosis, and NIDDM who presented to [facility] on 2016 complaining of sudden onset of lightheadedness and dyspnea while out shopping. She also reported mild right calf pain and swelling for several weeks. On exam, she denies chest pain, hemoptysis, or any other discomfort. Imaging: Chest CT 05/22/2016 with extensive bilateral pulmonary embolism, extensive mediastinal lymphadenopathy. Hematology Pulmonary Embolism/extensive DVT - acute Assessment/Plan: Pt is hemodynamically stable, having one episode of HTN this afternoon Currently treated with systemic tPA given evidence of right heart strain On a Heparin drip Upon d/c will need to continue Lovenox as outpatient and will need malignancy workup as well Mediastinal lymphadenopathy - incidental finding CTA shows extensive lymphadenopathy, will need further workup, possible biopsy once stabilized Possible lymph node biopsy when stable Oncology consulted Endocrine Diabetes Mellitus - chronic Assessment/Plan: novolog sliding scale diabetic diet monitor BGMs F.E.N. Fluids: tolerating PO Electrolytes: monitor BMP, replete Nutrition: diabetic diet Prophylaxis DVT: Heparin gtt GI: Protonix Disposition: Continues to require inpatient ICU care. Full code. Visit type - Emergency Visit Emergency Visit: Yes ED Registration Date: 05/22/16 Care time: The patient presented to the Emergency Department on the above date and was hospitalized for further evaluation of their emergent condition. - New Patient This patient is new to me today: Yes Date on this admission: 07/25/16 - Critical Care Critical Care patient: Yes Total Critical Care Time (in minutes): 45 Critical Care Statement: The care of this patient involved high complexity decision making to prevent further life threatening deterioration of the patient 's condition and/or to evalute & treat vital organ system(s) failure or risk of failure. - Discharge Referral Referred to [facility] Med [facility].C.: No
[2016-05-25] MEDS: ENALAPRILAT DIHYDRATE 1.25 MG/1 ML VIAL IVPB SCH ×2 (18:04→21:01)
[2016-05-25] MEDS: CHLORHEXIDINE GLUCONATE 4% CLEANSER FOR DECOLONIZATION TP SCH (21:15)
[2016-05-26] MEDS: ENALAPRILAT DIHYDRATE 1.25 MG/1 ML VIAL IVPB SCH ×4 (03:06→21:54)
[2016-05-26 05:53] LABS: BASOPHIL 0.6 % (0-2.0); EOSINOPHIL 2.9 % (0-4.5); MCHC 33.6 g/dl (32.0-36.0); MEAN CELL VOLUME 92.4 fl (80-96); MEAN PLT VOLUME 9.9 fl (7.5-11.1); NEUTROPHILS 66.5 % (42.8-82.8); PLATELET COUNT 106 K/MM3 (134-434); RDW 14.3 % (11.6-15.6); WHITE BLOOD COUNT 7.6 K/mm3 (4.0-10.0)
[2016-05-26] MEDS: INSULIN SLIDING SCALE (NOVOLOG) 1 VIAL SQ SCH ×4 (06:03→21:51)
[2016-05-26 06:18] LABS: ALBUMIN 2.9 g/dl (3.4-5.0); ANION GAP 9 (8-16); CALCIUM 8.1 mg/dL (8.5-10.1); CO2 24 mmol/L (21-32); CREATININE 0.9 mg/dL (0.55-1.02); GLUCOSE,RANDOM 117 mg/dL (74-106); MAGNESIUM 1.9 mg/dL (1.8-2.4); PHOSPHOROUS 3.7 mg/dL (2.5-4.9); SGOT/AST 15 U/L (15-37); SGPT/ALT 12 U/L (12-78)
[2016-05-26 06:19] LABS: ALK PHOS 60 U/L (45-117); BILIRUBIN,TOTAL 0.5 mg/dL (0.2-1.0)
[2016-05-26 08:04] LABS: INR 1.22 (0.82-1.09); PROTHROMBIN TIME (PATIENT) 13.5 SEC (9.98-11.88)
[2016-05-26] MEDS: MUPIROCIN 2% TOPICAL OINTMENT FOR DECOLONIZATION NS SCH ×2 (10:19→21:54)
--- NOTE | 2016-05-26 12:20 | PN ---
Progress Note (short form) - Note Progress Note: Patient seen and examined in the ICU. Awake and alert on 100% NRBM. S/P catheter directed tPA yesterday. For IR intervention today (IVC filter / LLE thrombectomy) Intake & Output 05/23/16 05/24/16 05/25/16 05/26/16 23:59 23:59 23:59 23:59 Intake Total 1834 1134 1550 290 Output Total 500 300 Balance 1334 1134 1250 290 Weight 189 lb 11.2 oz 190 lb 192 lb 6.4 oz 192 lb 1.6 oz Last Vital Signs Temp Pulse Resp BP Pulse Ox 97.8 F 82 22 108/52 97 05/26/16 06:00 05/26/16 11:00 05/26/16 11:00 05/26/16 11:00 05/26/16 10:00 Active Medications Acetaminophen (Tylenol -) 650 mg PO Q6H PRN PRN Reason: FEVER OR PAIN Last Admin: 05/23/16 13:12 Dose: 650 mg Chlorhexidine Gluconate (Hibiclens For Decolonization -) 1 applic TP HS MARV Last Admin: 05/25/16 21:15 Dose: 1 applic Docusate Sodium (Colace -) 100 mg PO BID PRN PRN Reason: CONSTIPATION Enalaprilat (Vasotec Injection -) 1.25 mg IVPB Q6H-IV MARV Last Admin: 05/26/16 10:00 Dose: 1.25 mg Heparin Sodium (Porcine) (Heparin -) 1,000 unit IVPUSH PRN PRN PRN Reason: Heparin Last Admin: 05/25/16 10:46 Dose: 1,000 unit Heparin Sodium (Porcine) (Heparin -) 5,000 unit IVPUSH PRN PRN PRN Reason: Heparin Last Admin: 05/25/16 19:35 Dose: 5,000 unit Heparin Sodium (Porcine) 25, (000 unit/ Sodium Chloride) 500 mls @ 20 mls/hr IV TITR MARV; 1,000 UNIT/HR PRN Reason: Protocol Last Titration: 05/25/16 19:27 Dose: 650 unit/hr Alteplase, Recombinant 25 mg/ (Sodium Chloride) 250 mls @ 5 mls/hr IVPB ONCE ONE Stop: 05/27/16 13:14 Last Admin: 05/25/16 13:50 Dose: 5 mls/hr Insulin Aspart (Novolog Vial Sliding Scale -) 1 vial SQ ACHS MARV PRN Reason: Protocol Last Admin: 05/26/16 06:03 Dose: Not Given Mupirocin (Bactroban Ointment (For Decolonization) -) 1 applic NS BID [facility] Stop: 05/27/16 21:59 Last Admin: 05/26/16 10:19 Dose: 1 applic Ondansetron HCl (Zofran Injection) 4 mg IVPB Q6H PRN PRN Reason: NAUSEA Constitutional: Yes: Awake and alert, Mildly tachypneic at rest Eyes: Yes: Conjunctiva Clear, EOM Intact, PERRL HENT: Yes: Atraumatic, Normocephalic Neck: Yes: Supple, Trachea Midline. No: Lymphadenopathy Cardiovascular: Yes: Regular Rate and Rhythm, S1, S2. No: Murmur, Rub Respiratory: Yes: CTA Bilaterally, On NRBM, No: Accessory Muscle Use Gastrointestinal: Yes: Normal Bowel Sounds, Soft ...Rectal Exam: Yes: Deferred Renal/: Yes: WNL Breast(s): Yes: WNL Musculoskeletal: Yes: Muscle Pain Extremities: Yes: WNL. No: Cyanosis, Delayed Capillary Refill, Other (No clubbing) Edema: No Integumentary: Yes: WNL Neurological: Yes: WNL, Alert, Oriented, Non-focal ...Motor Strength: WNL Psychiatric: Yes: WNL Labs: Laboratory Results - last 24 hr 05/25/16 05/25/16 05/25/16 17:45 17:55 21:30 WBC RBC Hgb Hct MCV MCHC RDW Plt Count MPV Neutrophils % Lymphocytes % Monocytes % Eosinophils % Basophils % INR PTT (Actin FS) 38.6 H Sodium Potassium Chloride Carbon Dioxide Anion Gap BUN Creatinine Creat Clearance w eGFR POC Glucometer 163.69375 189.33397 Random Glucose Calcium Phosphorus Magnesium Total Bilirubin AST ALT Alkaline Phosphatase Total Protein Albumin 05/26/16 05/26/16 05/26/16 01:30 05:00 05:00 WBC RBC Hgb Hct MCV MCHC RDW Plt Count MPV Neutrophils % Lymphocytes % Monocytes % Eosinophils % Basophils % INR PTT (Actin FS) 74.1 H D 68.5 H Sodium 142 Potassium 4.2 Chloride 109 H Carbon Dioxide 24 Anion Gap 9 BUN 16 D Creatinine 0.9 Creat Clearance w eGFR > 60 POC Glucometer Random Glucose 117 H Calcium 8.1 L Phosphorus 3.7 Magnesium 1.9 Total Bilirubin 0.5 D AST 15 ALT 12 Alkaline Phosphatase 60 Total Protein 6.0 L Albumin 2.9 L 05/26/16 05/26/16 05/26/16 05:00 05:00 05:19 WBC 7.6 RBC 4.14 Hgb 12.8 Hct 38.2 MCV 92.4 MCHC 33.6 RDW 14.3 Plt Count 106 L MPV 9.9 Neutrophils % 66.5 Lymphocytes % 18.9 Monocytes % 11.1 H Eosinophils % 2.9 Basophils % 0.6 INR 1.22 H PTT (Actin FS) Sodium Potassium Chloride Carbon Dioxide Anion Gap BUN Creatinine Creat Clearance w eGFR POC Glucometer 134.55569 Random Glucose Calcium Phosphorus Magnesium Total Bilirubin AST ALT Alkaline Phosphatase Total Protein Albumin Problem List - Problems (1) Acute respiratory failure with hypoxemia Code(s): J96.01 - ACUTE RESPIRATORY FAILURE WITH HYPOXIA (2) DVT (deep venous thrombosis) Code(s): I82.409 - ACUTE EMBOLISM AND THOMBOS UNSP DEEP VN UNSP LOWER EXTREMITY (3) Pulmonary embolism with acute cor pulmonale Code(s): I26.09 - OTHER PULMONARY EMBOLISM WITH ACUTE COR PULMONALE Qualifiers : Pulmonary embolism type: other Chronicity: acute Qualified Code( s): I26.09 - Other pulmonary embolism with acute cor pulmonale (4) Subacute massive pulmonary embolism Code(s): I26.99 - OTHER PULMONARY EMBOLISM WITHOUT ACUTE COR PULMONALE Assessment/Plan Submassive PE -> Currently hemodynamically stable. Remote Hx of DVT while on OCP Hx of 1 previous miscarriage PLAN: - IR intervention today (IVC Filter / LLE thrombectomy) - O2 for Spo2 >92 - PO as tolerated - Continue ICU monitoring for tenuous status Dr Kc CCTime 35"
--- NOTE | 2016-05-26 12:33 | PN ---
Physical Exam: SUBJECTIVE: Patient seen and examined at bedside in ICU. AAO and in pleasant mood. Afebrile & reports breathing has improved. Slept well overnight without acute events. For IR placement of IVC filter latent today. OBJECTIVE: Vital Signs Period Temp Pulse Resp BP Sys/Reynoso Pulse Ox Last 24 Hr 97.3 F-98.0 F 82-107 18-26 95-165/52-114 95-100 GENERAL: The patient is awake, alert, and fully oriented, in no acute distress. HEENT: right neck catheter in place and without active bleeding, no lymphadenopathy or tenderness, moist membranes LUNGS: bibasilar crackles noted HEART: Regular rate and rhythm, S1, S2 ABDOMEN: Soft, nontender, nondistended, normoactive bowel sounds EXTREMITIES: 2+ pulses, warm, well-perfused, no edema. (-) blanca/johnson tests bilateral LE NEUROLOGICAL: Cranial nerves II through XII grossly intact. Normal speech, gait not observed. PSYCH: Normal mood, normal affect. SKIN: Warm, dry, normal turgor, no rashes or lesions noted Laboratory Results - last 24 hr 05/25/16 05/25/16 05/25/16 17:45 17:55 21:30 WBC RBC Hgb Hct MCV MCHC RDW Plt Count MPV Neutrophils % Lymphocytes % Monocytes % Eosinophils % Basophils % INR PTT (Actin FS) 38.6 H Sodium Potassium Chloride Carbon Dioxide Anion Gap BUN Creatinine Creat Clearance w eGFR POC Glucometer 163.76402 189.76797 Random Glucose Calcium Phosphorus Magnesium Total Bilirubin AST ALT Alkaline Phosphatase Total Protein Albumin 05/26/16 05/26/16 05/26/16 01:30 05:00 05:00 WBC RBC Hgb Hct MCV MCHC RDW Plt Count MPV Neutrophils % Lymphocytes % Monocytes % Eosinophils % Basophils % INR PTT (Actin FS) 74.1 H D 68.5 H Sodium 142 Potassium 4.2 Chloride 109 H Carbon Dioxide 24 Anion Gap 9 BUN 16 D Creatinine 0.9 Creat Clearance w eGFR > 60 POC Glucometer Random Glucose 117 H Calcium 8.1 L Phosphorus 3.7 Magnesium 1.9 Total Bilirubin 0.5 D AST 15 ALT 12 Alkaline Phosphatase 60 Total Protein 6.0 L Albumin 2.9 L 05/26/16 05/26/16 05/26/16 05:00 05:00 05:19 WBC 7.6 RBC 4.14 Hgb 12.8 Hct 38.2 MCV 92.4 MCHC 33.6 RDW 14.3 Plt Count 106 L MPV 9.9 Neutrophils % 66.5 Lymphocytes % 18.9 Monocytes % 11.1 H Eosinophils % 2.9 Basophils % 0.6 INR 1.22 H PTT (Actin FS) Sodium Potassium Chloride Carbon Dioxide Anion Gap BUN Creatinine Creat Clearance w eGFR POC Glucometer 134.80687 Random Glucose Calcium Phosphorus Magnesium Total Bilirubin AST ALT Alkaline Phosphatase Total Protein Albumin Active Medications Generic Name Dose Route Start Last Admin Trade Name Freq PRN Reason Stop Dose Admin Acetaminophen 650 mg 05/22/16 16:36 05/23/16 13:12 Tylenol - PO 650 mg Q6H PRN Administration FEVER OR PAIN Chlorhexidine Gluconate 1 applic 05/22/16 22:00 05/25/16 21:15 Hibiclens For Decolonization - TP 1 applic HS MARV Administration Docusate Sodium 100 mg 05/24/16 08:54 Colace - PO BID PRN CONSTIPATION Enalaprilat 1.25 mg 05/25/16 17:00 05/26/16 10:00 Vasotec Injection - IVPB 1.25 mg Q6H-IV MARV Administration Heparin Sodium (Porcine) 1,000 unit 05/22/16 16:43 05/25/16 10:46 Heparin - IVPUSH 1,000 unit PRN PRN Administration Heparin Heparin Sodium (Porcine) 5,000 unit 05/22/16 16:43 05/25/16 19:35 Heparin - IVPUSH 5,000 unit PRN PRN Administration Heparin Heparin Sodium (Porcine) 25, 500 mls @ 20 mls/hr 05/22/16 16:45 05/25/16 19:27 000 unit/ Sodium Chloride IV 650 unit/hr TITR MARV Titration Protocol 1,000 UNIT/HR Alteplase, Recombinant 25 mg/ 250 mls @ 5 mls/hr 05/25/16 11:53 05/25/16 13:50 Sodium Chloride IVPB 05/27/16 13:14 5 mls/hr ONCE ONE Administration Insulin Aspart 1 vial 05/22/16 22:00 05/26/16 12:21 Novolog Vial Sliding Scale - SQ Not Given ACHS MARV Protocol Mupirocin 1 applic 05/22/16 22:00 05/26/16 10:19 Bactroban Ointment (For Decolonization) - NS 05/27/16 21:59 1 applic BID MARV Administration Ondansetron HCl 4 mg 05/22/16 16:36 Zofran Injection IVPB Q6H PRN NAUSEA ASSESSMENT/PLAN: 81 year old female with a PMH of LE DVT, Sarcoidosis, and HLD/DM who presented to ED after sudden onset of lightheadedness and dyspnea while out shopping. She also reported mild right calf pain and swelling for several weeks. CT showed bilateral pulmonary embolism, extensive mediastinal lymphadenopathy. #Bilateral Pulmonary Embolism, RLE DVT -s/p catheter-guided tPA by IR yesterday with clot removal -for IVC filter placement later today by IR -on Heparin ggt at present -will require outpatient anticoagulation (likely Lovenox) & coagulopathy workup #Mediastinal lymphadenopathy -incidental finding on CTA -patient states she has history of sarcoidosis & TB exposure (, 40y ago) -will require workup as an outpatient -Heme/Onc consulted & following #Diabetes -ISS -FS ACHS -Diabetic diet Prophylaxis/FEN -Heparin for DVT prophylaxis -PO, monitor electrolytes, Diabetic diet Visit type - Emergency Visit Emergency Visit: Yes ED Registration Date: 05/22/16 Care time: The patient presented to the Emergency Department on the above date and was hospitalized for further evaluation of their emergent condition. - New Patient This patient is new to me today: Yes Date on this admission: 05/26/16 - Critical Care Critical Care patient: Yes Total Critical Care Time (in minutes): 40 Critical Care Statement: The care of this patient involved high complexity decision making to prevent further life threatening deterioration of the patient 's condition and/or to evalute & treat vital organ system(s) failure or risk of failure.
--- NOTE | 2016-05-26 15:55 | PN ---
Physical Exam: SUBJECTIVE: Patient seen and examined Patient seen and examined in the ICU. She is awake, alert and oriented x 3. Currently on a non re breather mast. She is s/p catheter directed TPA yesterday. For IVC filter placement. OBJECTIVE: Vital Signs Period Temp Pulse Resp BP Sys/Reynoso Pulse Ox Last 24 Hr 97.3 F-97.8 F 82-107 18-26 94-153/52-106 94-100 GENERAL: The patient is awake, alert, and fully oriented, in mild respiratory distress, on NRB. HEAD: Normal with no signs of trauma. EYES: PERRL, extraocular movements intact, sclera anicteric, conjunctiva clear. No ptosis. ENT: Ears normal, nares patent, oropharynx clear without exudates, moist mucous membranes. NECK: Trachea midline, full range of motion, supple. LUNGS: anterior lungs with clear breath sounds, posterior lower lobes with fine crackles. HEART: Regular rate and rhythm ABDOMEN: Soft, nontender, non-distended, normoactive bowel sounds, no guarding, no rebound, no hepatosplenomegaly, no masses. EXTREMITIES: left ankle with non pitting edema. NEUROLOGICAL: Normal speech, gait not observed. PSYCH: Normal mood, normal affect. SKIN: Warm, dry, normal turgor, no rashes or lesions noted Laboratory Results - last 24 hr 05/25/16 05/25/16 05/25/16 17:45 17:55 21:30 WBC RBC Hgb Hct MCV MCHC RDW Plt Count MPV Neutrophils % Lymphocytes % Monocytes % Eosinophils % Basophils % INR PTT (Actin FS) 38.6 H Sodium Potassium Chloride Carbon Dioxide Anion Gap BUN Creatinine Creat Clearance w eGFR POC Glucometer [phone] Random Glucose Calcium Phosphorus Magnesium Total Bilirubin AST ALT Alkaline Phosphatase Total Protein Albumin 05/26/16 05/26/16 05/26/16 01:30 05:00 05:00 WBC RBC Hgb Hct MCV MCHC RDW Plt Count MPV Neutrophils % Lymphocytes % Monocytes % Eosinophils % Basophils % INR PTT (Actin FS) 74.1 H D 68.5 H Sodium 142 Potassium 4.2 Chloride 109 H Carbon Dioxide 24 Anion Gap 9 BUN 16 D Creatinine 0.9 Creat Clearance w eGFR > 60 POC Glucometer Random Glucose 117 H Calcium 8.1 L Phosphorus 3.7 Magnesium 1.9 Total Bilirubin 0.5 D AST 15 ALT 12 Alkaline Phosphatase 60 Total Protein 6.0 L Albumin 2.9 L 05/26/16 05/26/16 05/26/16 05:00 05:00 05:19 WBC 7.6 RBC 4.14 Hgb 12.8 Hct 38.2 MCV 92.4 MCHC 33.6 RDW 14.3 Plt Count 106 L MPV 9.9 Neutrophils % 66.5 Lymphocytes % 18.9 Monocytes % 11.1 H Eosinophils % 2.9 Basophils % 0.6 INR 1.22 H PTT (Actin FS) Sodium Potassium Chloride Carbon Dioxide Anion Gap BUN Creatinine Creat Clearance w eGFR POC Glucometer [phone] Random Glucose Calcium Phosphorus Magnesium Total Bilirubin AST ALT Alkaline Phosphatase Total Protein Albumin Active Medications Generic Name Dose Route Start Last Admin Trade Name Freq PRN Reason Stop Dose Admin Acetaminophen 650 mg 05/22/16 16:36 05/23/16 13:12 Tylenol - PO 650 mg Q6H PRN Administration FEVER OR PAIN Chlorhexidine Gluconate 1 applic 05/22/16 22:00 05/25/16 21:15 Hibiclens For Decolonization - TP 1 applic HS MARV Administration Docusate Sodium 100 mg 05/24/16 08:54 Colace - PO BID PRN CONSTIPATION Enalaprilat 1.25 mg 05/25/16 17:00 05/26/16 10:00 Vasotec Injection - IVPB 1.25 mg Q6H-IV MARV Administration Heparin Sodium (Porcine) 1,000 unit 05/22/16 16:43 05/25/16 10:46 Heparin - IVPUSH 1,000 unit PRN PRN Administration Heparin Heparin Sodium (Porcine) 5,000 unit 05/22/16 16:43 05/25/16 19:35 Heparin - IVPUSH 5,000 unit PRN PRN Administration Heparin Heparin Sodium (Porcine) 25, 500 mls @ 20 mls/hr 05/22/16 16:45 05/25/16 19:27 000 unit/ Sodium Chloride IV 650 unit/hr TITR MARV Titration Protocol 1,000 UNIT/HR Alteplase, Recombinant 25 mg/ 250 mls @ 5 mls/hr 05/25/16 11:53 05/25/16 13:50 Sodium Chloride IVPB 05/27/16 13:14 5 mls/hr ONCE ONE Administration Insulin Aspart 1 vial 05/22/16 22:00 05/26/16 12:21 Novolog Vial Sliding Scale - SQ Not Given ACHS [facility] Protocol Mupirocin 1 applic 05/22/16 22:00 05/26/16 10:19 Bactroban Ointment (For Decolonization) - NS 05/27/16 21:59 1 applic BID MARV Administration Ondansetron HCl 4 mg 05/22/16 16:36 Zofran Injection IVPB Q6H PRN NAUSEA ASSESSMENT/PLAN: Patient is an 81 year old female with a significant past medical history of lower extremity DVT apx 40 years ago while on control pills, hyperlipidemia, pulmonary sarcoidosis, and NIDDM who presented to [facility] on 2016 complaining of sudden onset of lightheadedness and dyspnea while out shopping. She also reported mild right calf pain and swelling for several weeks. On exam, she denies chest pain, hemoptysis, or any other discomfort. Imaging: Chest CT 05/22/2016 with extensive bilateral pulmonary embolism, extensive mediastinal lymphadenopathy. Hematology Pulmonary Embolism/extensive DVT - acute Assessment/Plan: Pt is hemodynamically stable Currently being treated with systemic tPA given evidence of right heart strain On a Heparin drip Upon d/c will need to continue Lovenox as outpatient and will need malignancy workup as well. She is aware and in agreement. She is s/p IVC filter placement today by IR. will need terminologist anticoagulants as outpatient, will need outpatient hematology follow up. Mediastinal lymphadenopathy - incidental finding CTA shows extensive lymphadenopathy, will need further workup, possible biopsy once stabilized Possible lymph node biopsy when stable Oncology consulted Endocrine Diabetes Mellitus - chronic Assessment/Plan: novolog sliding scale diabetic diet monitor BGMs F.E.N. Fluids: tolerating PO Electrolytes: monitor BMP, replete Nutrition: diabetic diet Prophylaxis DVT: Heparin gtt GI: Protonix Disposition: Continues to require inpatient ICU care. Full code. Visit type - Emergency Visit Emergency Visit: Yes ED Registration Date: 05/22/16 Care time: The patient presented to the Emergency Department on the above date and was hospitalized for further evaluation of their emergent condition. - New Patient This patient is new to me today: No - Critical Care Critical Care patient: Yes Total Critical Care Time (in minutes): 60 Critical Care Statement: The care of this patient involved high complexity decision making to prevent further life threatening deterioration of the patient 's condition and/or to evalute & treat vital organ system(s) failure or risk of failure. - Discharge Referral Referred to [facility] No
[2016-05-26] MEDS: HEPARIN - 25,000 UNIT in SODIUM CHLORIDE 495 ML IV SCH (17:49)
--- NOTE | 2016-05-26 19:29 | PN ---
Progress Note (short form) - Note Progress Note: Patient seen and examined Less short of breath. ROS: Less dyspneic. No headache, diplopia, epistaxis, dysphagia, some blurriness of vision secondary to cataracts, No GI distress , but for constipation, No dysuria, hematuria, some back pains, some leg discomfort, dry non productive cough Current Medications Generic Name Dose Route Start Last Admin Trade Name Freq PRN Reason Stop Dose Admin Acetaminophen 650 mg 05/22/16 16:36 05/23/16 13:12 Tylenol - PO 650 mg Q6H PRN Administration FEVER OR PAIN Chlorhexidine Gluconate 1 applic 05/22/16 22:00 05/25/16 21:15 Hibiclens For Decolonization - TP 1 applic HS MARV Administration Docusate Sodium 100 mg 05/24/16 08:54 Colace - PO BID PRN CONSTIPATION Enalaprilat 1.25 mg 05/25/16 17:00 05/26/16 17:21 Vasotec Injection - IVPB Not Given Q6H-IV MARV Heparin Sodium (Porcine) 1,000 unit 05/22/16 16:43 05/25/16 10:46 Heparin - IVPUSH 1,000 unit PRN PRN Administration Heparin Heparin Sodium (Porcine) 5,000 unit 05/22/16 16:43 05/25/16 19:35 Heparin - IVPUSH 5,000 unit PRN PRN Administration Heparin Heparin Sodium (Porcine) 25, 500 mls @ 20 mls/hr 05/22/16 16:45 05/26/16 17:49 000 unit/ Sodium Chloride IV 12 mls/hr TITR MARV Administration Protocol 1,000 UNIT/HR Alteplase, Recombinant 25 mg/ 250 mls @ 5 mls/hr 05/25/16 11:53 05/25/16 13:50 Sodium Chloride IVPB 05/27/16 13:14 5 mls/hr ONCE ONE Administration Insulin Aspart 1 vial 05/22/16 22:00 05/26/16 17:47 Novolog Vial Sliding Scale - SQ Not Given ACHS [facility] Protocol Mupirocin 1 applic 05/22/16 22:00 05/26/16 10:19 Bactroban Ointment (For Decolonization) - NS 05/27/16 21:59 1 applic BID MARV Administration Ondansetron HCl 4 mg 05/22/16 16:36 Zofran Injection IVPB Q6H PRN NAUSEA CBC, BMP 05/26/16 05:00 05/26/16 05:00 INR, PTT INR 1.22 (0.82-1.09) H 05/26/16 05:00 Impression: Submassive P>E. s/p thrombolysis and thrombectomy meduiastinal lymphadenopathy Heparin drip IVC filter On heparin drip. S/P thrombolysis and thrombectomy. S/P IVC filter Submassive P.E. with extensive mediatinal lymphadenopathy Last Vital Signs Temp Pulse Resp BP Pulse Ox 97.3 F L 99 H 16 109/71 100 05/26/16 16:45 05/26/16 18:30 05/26/16 18:30 05/26/16 18:30 05/26/16 16:07 HEENT: PREM, EOM Intact Oropharynx: No thrush, No mucositis Breasts: Without masses Cor: sinus tach Lungs: diminished breath sounds bilaterally Abd: Soft, Normal bowel sounds, No organomegaly Ext:No significant edema Skin: No rashes, Integument intact Plan: Continue heparin bridge to coumadin or NOAC When stable - Evaluate mediastinal lymphaddenopathy HAYDEN level
[2016-05-26] MEDS ORDERED: SODIUM CHLORIDE 250 ML IV STA ×2 (20:27→23:00)
[2016-05-26] MEDS: DOCUSATE SODIUM 100 MG CAPSULE (FP) PO PRN (21:50)
[2016-05-26] MEDS: CHLORHEXIDINE GLUCONATE 4% CLEANSER FOR DECOLONIZATION TP SCH (21:54)
[2016-05-27] MEDS: LACTATED RINGERS SOLUTION 1,000 ML IV SCH ×2 (00:05→21:27)
[2016-05-27 00:33] LABS: BASOPHIL 0.6 % (0-2.0); EOSINOPHIL 3.3 % (0-4.5); MCH 30.8 pg (25.7-33.7); MCHC 33.3 g/dl (32.0-36.0); MEAN CELL VOLUME 92.7 fl (80-96); MEAN PLT VOLUME 9.6 fl (7.5-11.1); NEUTROPHILS 65.2 % (42.8-82.8); PLATELET COUNT 93 K/MM3 (134-434); RDW 14.3 % (11.6-15.6); WHITE BLOOD COUNT 7.2 K/mm3 (4.0-10.0)
[2016-05-27] MEDS: ENALAPRILAT DIHYDRATE 1.25 MG/1 ML VIAL IVPB SCH ×4 (03:00→21:27)
[2016-05-27 06:43] LABS: BASOPHIL 0.5 % (0-2.0); EOSINOPHIL 4.7 % (0-4.5); MCH 31.2 pg (25.7-33.7); MCHC 33.5 g/dl (32.0-36.0); MEAN CELL VOLUME 93.2 fl (80-96); MEAN PLT VOLUME 9.8 fl (7.5-11.1); NEUTROPHILS 61.5 % (42.8-82.8); PLATELET COUNT 91 K/MM3 (134-434); RDW 14.2 % (11.6-15.6); WHITE BLOOD COUNT 6.5 K/mm3 (4.0-10.0)
[2016-05-27] MEDS: INSULIN SLIDING SCALE (NOVOLOG) 1 VIAL SQ SCH ×4 (06:53→21:47)
[2016-05-27 07:00] LABS: INR 1.11 (0.82-1.09); PROTHROMBIN TIME (PATIENT) 12.2 SEC (9.98-11.88)
[2016-05-27 07:18] LABS: ALBUMIN 2.8 g/dl (3.4-5.0); BILIRUBIN,TOTAL 0.4 mg/dL (0.2-1.0); CALCIUM 8.3 mg/dL (8.5-10.1); MAGNESIUM 2.1 mg/dL (1.8-2.4); PHOSPHOROUS 3.3 mg/dL (2.5-4.9); TOT PROT 5.5 g/dl (6.4-8.2)
[2016-05-27] MEDS: HEPARIN NA (PORCINE) 5,000 UNITS/ML 1ML VIAL IVPUSH PRN (09:08)
[2016-05-27] MEDS: MUPIROCIN 2% TOPICAL OINTMENT FOR DECOLONIZATION NS SCH (10:46)
--- NOTE | 2016-05-27 11:01 | PN ---
Teaching Attending Note Name of Resident: Fidel Quintanilla ATTENDING PHYSICIAN STATEMENT I saw and evaluated the patient. I reviewed the resident's note and discussed the case with the resident. I agree with the resident's findings and plan as documented. SUBJECTIVE: Pt seen and examined in the ICU. s/p catheter directed thrombolysis/thrombectomy , IVC filter placement. Denies chest pain, shortness of breath or palpitations. OBJECTIVE: Last Vital Signs Temp Pulse Resp BP Pulse Ox 97.8 F 90 20 104/70 96 05/27/16 06:00 05/27/16 08:00 05/27/16 08:00 05/27/16 08:00 05/26/16 19:49 Intake & Output 05/24/16 05/25/16 05/26/16 05/27/16 23:59 23:59 23:59 23:59 Intake Total 1134 1550 2067 432 Output Total 300 500 Balance 1134 1250 1567 432 Weight 190 lb 192 lb 6.4 oz 192 lb 1.6 oz 193 lb 1.6 oz Gen: NAD at rest Heart: RRR Lung: decreased breath sounds at the bases Abd: soft, nontender Ext: RLE posterior cord CBC, BMP 05/27/16 05:20 05/27/16 05:20 Active Medications Acetaminophen (Tylenol -) 650 mg PO Q6H PRN PRN Reason: FEVER OR PAIN Last Admin: 05/23/16 13:12 Dose: 650 mg Chlorhexidine Gluconate (Hibiclens For Decolonization -) 1 applic TP HS MARV Last Admin: 05/26/16 21:54 Dose: 1 applic Docusate Sodium (Colace -) 100 mg PO BID PRN PRN Reason: CONSTIPATION Last Admin: 05/26/16 21:50 Dose: 100 mg Enalaprilat (Vasotec Injection -) 1.25 mg IVPB Q6H-IV MARV Last Admin: 05/27/16 10:37 Dose: Not Given Heparin Sodium (Porcine) (Heparin -) 1,000 unit IVPUSH PRN PRN PRN Reason: Heparin Last Admin: 05/25/16 10:46 Dose: 1,000 unit Heparin Sodium (Porcine) (Heparin -) 5,000 unit IVPUSH PRN PRN PRN Reason: Heparin Last Admin: 05/27/16 09:08 Dose: 5,000 unit Heparin Sodium (Porcine) 25, (000 unit/ Sodium Chloride) 500 mls @ 20 mls/hr IV TITR MARV; 1,000 UNIT/HR PRN Reason: Protocol Last Titration: 05/27/16 09:08 Dose: 750 unit/hr Alteplase, Recombinant 25 mg/ (Sodium Chloride) 250 mls @ 5 mls/hr IVPB ONCE ONE Stop: 05/27/16 13:14 Last Admin: 05/25/16 13:50 Dose: 5 mls/hr Lactated Ringer's (Lactated Ringers Solution) 1,000 mls @ 42 mls/hr IV ASDIR MARV Last Admin: 05/27/16 00:05 Dose: 42 mls/hr Insulin Aspart (Novolog Vial Sliding Scale -) 1 vial SQ ACHS MARV PRN Reason: Protocol Last Admin: 05/27/16 06:53 Dose: Not Given Mupirocin (Bactroban Ointment (For Decolonization) -) 1 applic NS BID MARV Stop: 05/27/16 21:59 Last Admin: 05/27/16 10:46 Dose: 1 applic Ondansetron HCl (Zofran Injection) 4 mg IVPB Q6H PRN PRN Reason: NAUSEA ASSESSMENT AND PLAN: Submassive PE RLE DVT Pulmonary HTN Sarcoidosis DM Hyperlipidemia - for RLE thrombectomy today - continue anticoagulation - start PO anticoagulation when no further invasive procedures planned - O2 to keep SpO2 >90% - age appropriate cancer screening as outpt - f/u chest imaging, PFTs as outpt - OOB to chair - can monitor on floor
[2016-05-27] MEDS ORDERED: HEMOQUE TEST 1 EACH EACH ONE (11:12)
--- NOTE | 2016-05-27 12:28 | PN ---
Physical Exam: SUBJECTIVE: Patient seen and examined at bedside this AM in ICU. Afebrile and without acute events overnight. States she is breathing much better than on admission, but has a mild cough this morning. For RLE DVT thrombectomy later today. OBJECTIVE: Vital Signs Period Temp Pulse Resp BP Sys/Reynsoo Pulse Ox Last 24 Hr 97.3 F-98.5 F 82-107 15-23 80-122/54-92 94-100 GENERAL: The patient is awake, alert, and fully oriented, in no acute distress. HEENT: atraumatic, no lymphadenopathy or tenderness, moist membranes LUNGS: mild bibasilar crackles noted HEART: Regular rate and rhythm, S1, S2 ABDOMEN: Soft, nontender, nondistended, normoactive bowel sounds EXTREMITIES: 2+ pulses, warm, well-perfused, no edema. (-) blanca/johnson tests bilateral LE NEUROLOGICAL: Cranial nerves II through XII grossly intact. Normal speech, gait not observed. PSYCH: Normal mood, normal affect. SKIN: Warm, dry, normal turgor, no rashes or lesions noted Laboratory Results - last 24 hr 05/27/16 05/27/16 05/27/16 00:19 05:20 05:20 WBC 7.2 RBC 3.58 L Hgb 11.0 D Hct 33.2 MCV 92.7 MCHC 33.3 RDW 14.3 Plt Count 93 L MPV 9.6 Neutrophils % 65.2 Lymphocytes % 19.2 Monocytes % 11.7 H Eosinophils % 3.3 Basophils % 0.6 INR 1.11 PTT (Actin FS) 39.3 H D Sodium Potassium Chloride Carbon Dioxide Anion Gap BUN Creatinine Creat Clearance w eGFR Random Glucose Calcium Phosphorus Magnesium Total Bilirubin AST ALT Alkaline Phosphatase Total Protein Albumin 05/27/16 05/27/16 05:20 05:20 WBC 6.5 RBC 3.38 L Hgb 10.6 L Hct 31.5 L MCV 93.2 MCHC 33.5 RDW 14.2 Plt Count 91 L MPV 9.8 Neutrophils % 61.5 Lymphocytes % 21.7 Monocytes % 11.6 H Eosinophils % 4.7 H Basophils % 0.5 INR PTT (Actin FS) Sodium 142 Potassium 4.3 Chloride 108 H Carbon Dioxide 25 Anion Gap 9 BUN 17 Creatinine 1.0 Creat Clearance w eGFR 53.35 Random Glucose 126 H Calcium 8.3 L Phosphorus 3.3 Magnesium 2.1 Total Bilirubin 0.4 AST 14 L ALT 10 L Alkaline Phosphatase 56 Total Protein 5.5 L Albumin 2.8 L Active Medications Generic Name Dose Route Start Last Admin Trade Name Abdoulayeq PRN Reason Stop Dose Admin Acetaminophen 650 mg 05/22/16 16:36 05/23/16 13:12 Tylenol - PO 650 mg Q6H PRN Administration FEVER OR PAIN Chlorhexidine Gluconate 1 applic 05/22/16 22:00 05/26/16 21:54 Hibiclens For Decolonization - TP 1 applic HS MARV Administration Docusate Sodium 100 mg 05/24/16 08:54 05/26/16 21:50 Colace - PO 100 mg BID PRN Administration CONSTIPATION Enalaprilat 1.25 mg 05/25/16 17:00 05/27/16 10:37 Vasotec Injection - IVPB Not Given Q6H-IV MARV Heparin Sodium (Porcine) 1,000 unit 05/22/16 16:43 05/25/16 10:46 Heparin - IVPUSH 1,000 unit PRN PRN Administration Heparin Heparin Sodium (Porcine) 5,000 unit 05/22/16 16:43 05/27/16 09:08 Heparin - IVPUSH 5,000 unit PRN PRN Administration Heparin Heparin Sodium (Porcine) 25, 500 mls @ 20 mls/hr 05/22/16 16:45 05/27/16 09:08 000 unit/ Sodium Chloride IV 750 unit/hr TITR MARV Titration Protocol 1,000 UNIT/HR Alteplase, Recombinant 25 mg/ 250 mls @ 5 mls/hr 05/25/16 11:53 05/25/16 13:50 Sodium Chloride IVPB 05/27/16 13:14 5 mls/hr ONCE ONE Administration Lactated Ringer's 1,000 mls @ 42 mls/hr 05/26/16 23:45 05/27/16 00:05 Lactated Ringers Solution IV 42 mls/hr ASDIR MARV Administration Insulin Aspart 1 vial 05/22/16 22:00 05/27/16 11:23 Novolog Vial Sliding Scale - SQ Not Given ACHS [facility] Protocol Mupirocin 1 applic 05/22/16 22:00 05/27/16 10:46 Bactroban Ointment (For Decolonization) - NS 05/27/16 21:59 1 applic BID MARV Administration Ondansetron HCl 4 mg 05/22/16 16:36 Zofran Injection IVPB Q6H PRN NAUSEA ASSESSMENT/PLAN: 81 year old female with a PMH of LE DVT, Sarcoidosis, and HLD/DM who presented to ED after sudden onset of lightheadedness and dyspnea while out shopping. She also reported mild right calf pain and swelling for several weeks. CT showed bilateral pulmonary embolism, extensive mediastinal lymphadenopathy. #Bilateral Pulmonary Embolism, RLE DVT: Unprovoked -s/p catheter-guided tPA & IVC filter placement by IR -for RLE DVT Thrombectomy later today -on Heparin ggt at present -can start oral Coumadin or NOAC after procedure today, as per IR -will need outpatient coagulopathy workup #Mediastinal lymphadenopathy -incidental finding on CTA -patient states she has history of sarcoidosis & TB exposure (, 40y ago) -will require workup as an outpatient -Heme/Onc consulted & following #Diabetes -ISS -FS ACHS -Diabetic diet Prophylaxis/FEN -Heparin for DVT prophylaxis -LR@42mls/hr, monitor electrolytes, Diabetic diet Dispo: can be transferred to floors for monitoring after procedure later today Visit type - Emergency Visit Emergency Visit: Yes ED Registration Date: 05/22/16 Care time: The patient presented to the Emergency Department on the above date and was hospitalized for further evaluation of their emergent condition. - New Patient This patient is new to me today: No - Critical Care Critical Care patient: Yes Total Critical Care Time (in minutes): 45 Critical Care Statement: The care of this patient involved high complexity decision making to prevent further life threatening deterioration of the patient 's condition and/or to evalute & treat vital organ system(s) failure or risk of failure.
[2016-05-27] MEDS ORDERED: ALTEPLASE 50 MG VIAL IV ONE (15:00)
--- NOTE | 2016-05-27 15:35 | PN ---
Physical Exam: SUBJECTIVE: Patient seen and examined. No overnight events, pt states she continues to feel weak, but is in good spirits and optimistic. For RLE thrombectomy today. OBJECTIVE: Vital Signs Period Temp Pulse Resp BP Sys/Reynoso Pulse Ox Last 24 Hr 97.3 F-98.5 F 82-107 15-25 80-145/54-92 94-100 GENERAL: The patient is awake, alert, and fully oriented, in mild respiratory distress, on NRB. HEAD: Normal with no signs of trauma. EYES: PERRL, extraocular movements intact, sclera anicteric, conjunctiva clear. No ptosis. ENT: Ears normal, nares patent, oropharynx clear without exudates, moist mucous membranes. NECK: Trachea midline, full range of motion, supple. HEART: Regular rate and rhythm ABDOMEN: Soft, nontender, non-distended, normoactive bowel sounds, no guarding, no rebound, no hepatosplenomegaly, no masses. EXTREMITIES: left ankle with non pitting edema. NEUROLOGICAL: Normal speech, gait not observed. PSYCH: Normal mood, normal affect. SKIN: Warm, dry, normal turgor, no rashes or lesions noted Laboratory Results - last 24 hr 05/27/16 05/27/16 05/27/16 00:19 05:20 05:20 WBC 7.2 RBC 3.58 L Hgb 11.0 D Hct 33.2 MCV 92.7 MCHC 33.3 RDW 14.3 Plt Count 93 L MPV 9.6 Neutrophils % 65.2 Lymphocytes % 19.2 Monocytes % 11.7 H Eosinophils % 3.3 Basophils % 0.6 INR 1.11 PTT (Actin FS) 39.3 H D Sodium Potassium Chloride Carbon Dioxide Anion Gap BUN Creatinine Creat Clearance w eGFR Random Glucose Calcium Phosphorus Magnesium Total Bilirubin AST ALT Alkaline Phosphatase Total Protein Albumin 05/27/16 05/27/16 05:20 05:20 WBC 6.5 RBC 3.38 L Hgb 10.6 L Hct 31.5 L MCV 93.2 MCHC 33.5 RDW 14.2 Plt Count 91 L MPV 9.8 Neutrophils % 61.5 Lymphocytes % 21.7 Monocytes % 11.6 H Eosinophils % 4.7 H Basophils % 0.5 INR PTT (Actin FS) Sodium 142 Potassium 4.3 Chloride 108 H Carbon Dioxide 25 Anion Gap 9 BUN 17 Creatinine 1.0 Creat Clearance w eGFR 53.35 Random Glucose 126 H Calcium 8.3 L Phosphorus 3.3 Magnesium 2.1 Total Bilirubin 0.4 AST 14 L ALT 10 L Alkaline Phosphatase 56 Total Protein 5.5 L Albumin 2.8 L Active Medications Generic Name Dose Route Start Last Admin Trade Name Freq PRN Reason Stop Dose Admin Acetaminophen 650 mg 05/22/16 16:36 05/23/16 13:12 Tylenol - PO 650 mg Q6H PRN Administration FEVER OR PAIN Chlorhexidine Gluconate 1 applic 05/22/16 22:00 05/26/16 21:54 Hibiclens For Decolonization - TP 1 applic HS MARV Administration Docusate Sodium 100 mg 05/24/16 08:54 05/26/16 21:50 Colace - PO 100 mg BID PRN Administration CONSTIPATION Enalaprilat 1.25 mg 05/25/16 17:00 05/27/16 10:37 Vasotec Injection - IVPB Not Given Q6H-IV MARV Heparin Sodium (Porcine) 1,000 unit 05/22/16 16:43 05/25/16 10:46 Heparin - IVPUSH 1,000 unit PRN PRN Administration Heparin Heparin Sodium (Porcine) 5,000 unit 05/22/16 16:43 05/27/16 09:08 Heparin - IVPUSH 5,000 unit PRN PRN Administration Heparin Heparin Sodium (Porcine) 25, 500 mls @ 20 mls/hr 05/22/16 16:45 05/27/16 09:08 000 unit/ Sodium Chloride IV 750 unit/hr TITR MARV Titration Protocol 1,000 UNIT/HR Lactated Ringer's 1,000 mls @ 42 mls/hr 05/26/16 23:45 05/27/16 00:05 Lactated Ringers Solution IV 42 mls/hr ASDIR MARV Administration Insulin Aspart 1 vial 05/22/16 22:00 05/27/16 11:23 Novolog Vial Sliding Scale - SQ Not Given ACHS [facility] Protocol Mupirocin 1 applic 05/22/16 22:00 05/27/16 10:46 Bactroban Ointment (For Decolonization) - NS 05/27/16 21:59 1 applic BID MARV Administration Ondansetron HCl 4 mg 05/22/16 16:36 Zofran Injection IVPB Q6H PRN NAUSEA ASSESSMENT/PLAN: Patient is an 81 year old female with a significant past medical history of lower extremity DVT apx 40 years ago while on control pills, hyperlipidemia, pulmonary sarcoidosis, and NIDDM who presented to [facility] on 2016 complaining of sudden onset of lightheadedness and dyspnea while out shopping. She also reported mild right calf pain and swelling for several weeks. On exam, she denies chest pain, hemoptysis, or any other discomfort. Imaging: Chest CT 05/22/2016 with extensive bilateral pulmonary embolism, extensive mediastinal lymphadenopathy. Hematology Pulmonary Embolism/extensive DVT - acute/unprovoked Assessment/Plan: Pt is hemodynamically stable Currently being treated with systemic tPA given evidence of right heart strain On a Heparin drip Upon d/c may need to continue Lovenox as outpatient and will need malignancy workup as well. She is aware and in agreement. She is s/p IVC filter placement today by IR. will need correction anticoagulants as outpatient, will need outpatient hematology follow up. for RLE DVT Thrombectomy today She had catheter-guided tPA and IVC filter placement Mediastinal lymphadenopathy - incidental finding CTA shows extensive lymphadenopathy, will need further workup, possible biopsy once stabilized Possible lymph node biopsy when stable Oncology consulted Endocrine Diabetes Mellitus - chronic Assessment/Plan: novolog sliding scale diabetic diet monitor BGMs F.E.N. Fluids: tolerating PO,LR @42/cc/hr Electrolytes: monitor BMP, replete Nutrition: diabetic diet Prophylaxis DVT: Heparin gtt, GI: Protonix Disposition: Continues to require inpatient ICU care. Full code. Visit type - Emergency Visit Emergency Visit: Yes ED Registration Date: 05/22/16 Care time: The patient presented to the Emergency Department on the above date and was hospitalized for further evaluation of their emergent condition. - New Patient This patient is new to me today: No - Critical Care Critical Care patient: Yes Total Critical Care Time (in minutes): 45 Critical Care Statement: The care of this patient involved high complexity decision making to prevent further life threatening deterioration of the patient 's condition and/or to evalute & treat vital organ system(s) failure or risk of failure. - Discharge Referral Referred to [facility] No
[2016-05-27] MEDS ORDERED: HEPARIN INFUSION - 500 ML IVPB ONE (17:54)
[2016-05-27] MEDS: HEPARIN - 25,000 UNIT in SODIUM CHLORIDE 495 ML IV SCH (17:58)
[2016-05-27] MEDS: DOCUSATE SODIUM 100 MG CAPSULE (FP) PO PRN (21:29)
[2016-05-27] MEDS: CHLORHEXIDINE GLUCONATE 4% CLEANSER FOR DECOLONIZATION TP SCH (21:46)
--- NOTE | 2016-05-27 23:32 | PN ---
Progress Note (short form) - Note Progress Note: PAtient sen and examined Denies any complaints Last Vital Signs Temp Pulse Resp BP Pulse Ox 98.8 F 81 17 109/67 99 05/28/16 10:00 05/28/16 10:00 05/28/16 10:00 05/28/16 10:00 05/28/16 08:08 HEENT: normal Cor: RSR, No murmurs, No gallops Lungs: Clear to P&A Abd: Soft, Normal bowel sounds, No organomegaly Ext:No significant edema Abnormal Lab Results 05/27/16 05/28/16 05/28/16 15:15 05:10 05:10 RBC 3.16 L Hgb 9.8 L Hct 29.5 L Plt Count 83 L Monocytes % 11.6 H Eosinophils % 4.7 H INR 1.22 H PTT (Actin FS) 80.4 H D 47.2 H D Chloride Random Glucose Calcium Total Protein Albumin 05/28/16 05/28/16 05:10 13:30 RBC Hgb Hct Plt Count Monocytes % Eosinophils % INR PTT (Actin FS) 60.8 H Chloride 111 H Random Glucose 121 H Calcium 8.1 L Total Protein 5.5 L Albumin 2.7 L Current Medications Acetaminophen (Tylenol -) 650 mg PO Q6H PRN PRN Reason: FEVER OR PAIN Last Admin: 05/23/16 13:12 Dose: 650 mg Chlorhexidine Gluconate (Hibiclens For Decolonization -) 1 applic TP HS MARV Last Admin: 05/27/16 21:46 Dose: 1 applic Docusate Sodium (Colace -) 100 mg PO BID PRN PRN Reason: CONSTIPATION Last Admin: 05/27/16 21:29 Dose: 100 mg Heparin Sodium (Porcine) (Heparin -) 1,000 unit IVPUSH PRN PRN PRN Reason: Heparin Last Admin: 05/28/16 07:30 Dose: 1,000 unit Heparin Sodium (Porcine) (Heparin -) 5,000 unit IVPUSH PRN PRN PRN Reason: Heparin Last Admin: 05/27/16 09:08 Dose: 5,000 unit Heparin Sodium (Porcine) 25, (000 unit/ Sodium Chloride) 500 mls @ 20 mls/hr IV TITR MARV; 1,000 UNIT/HR PRN Reason: Protocol Last Titration: 05/28/16 07:30 Dose: 800 unit/hr Lactated Ringer's (Lactated Ringers Solution) 1,000 mls @ 42 mls/hr IV ASDIR [facility] Last Admin: 05/27/16 21:27 Dose: 42 mls/hr Insulin Aspart (Novolog Vial Sliding Scale -) 1 vial SQ ACHS MARV PRN Reason: Protocol Last Admin: 05/28/16 11:24 Dose: Not Given Ondansetron HCl (Zofran Injection) 4 mg IVPB Q6H PRN PRN Reason: NAUSEA A/P 81 year old female with a significant past medical history of lower extremity DVT apx 40 years ago while on control pills, hyperlipidemia, pulmonary sarcoidosis, and NIDDM who presented to [facility] on 05/22/2016 complaining of sudden onset of lightheadedness and dyspnea while out shopping. She also reported mild right calf pain and swelling for several weeks. Imaging: Chest CT 05/22/2016 with extensive bilateral pulmonary embolism, extensive mediastinal lymphadenopathy. Pulmonary Embolism/extensive DVT - acute/unprovoked Assessment/Plan: Pt is hemodynamically stable Currently being treated with systemic tPA given evidence of right heart strain On a Heparin drip Upon d/c may need to continue Lovenox as outpatient and will need malignancy workup as well. She is aware and in agreement. She is s/p IVC filter placement will need correction anticoagulants as outpatient, will need outpatient hematology follow up. She had catheter-guided tPA and IVC filter placement s/p RLE thrombectomy Mediastinal lymphadenopathy - incidental finding CTA shows extensive lymphadenopathy, will need further workup, possible biopsy once stabilized Possible lymph node biopsy when stable will consider CT a/p Will disucss with IR based on CT a/p ? biopsy if amenable Nl coags/renal/hepatic function at baseline --? switch to lovenox vs ?? NOAC at d/c will follow
[2016-05-28] MEDS: ENALAPRILAT DIHYDRATE 1.25 MG/1 ML VIAL IVPB SCH ×2 (03:44→11:24)
[2016-05-28] MEDS: INSULIN SLIDING SCALE (NOVOLOG) 1 VIAL SQ SCH ×4 (06:17→22:00)
[2016-05-28 06:39] LABS: BASOPHIL 0.6 % (0-2.0); EOSINOPHIL 4.7 % (0-4.5); MCH 31.1 pg (25.7-33.7); MCHC 33.4 g/dl (32.0-36.0); MEAN CELL VOLUME 93.1 fl (80-96); MEAN PLT VOLUME 10.2 fl (7.5-11.1); NEUTROPHILS 60.2 % (42.8-82.8); PLATELET COUNT 83 K/MM3 (134-434); RDW 14.4 % (11.6-15.6); WHITE BLOOD COUNT 6.3 K/mm3 (4.0-10.0)
[2016-05-28 06:53] LABS: INR 1.22 (0.82-1.09); PROTHROMBIN TIME (PATIENT) 13.5 SEC (9.98-11.88)
[2016-05-28 06:56] LABS: ACTIVATED PTT 47.2 SECONDS (26.9-34.4)
[2016-05-28] MEDS: HEPARIN NA (PORCINE) 5,000 UNITS/ML 1ML VIAL IVPUSH PRN (07:30)
[2016-05-28 07:58] LABS: ANION GAP 9 (8-16); CALCIUM 8.1 mg/dL (8.5-10.1); CO2 23 mmol/L (21-32); CREATININE 0.9 mg/dL (0.55-1.02); GLUCOSE,RANDOM 121 mg/dL (74-106)
[2016-05-28 07:59] LABS: ALBUMIN 2.7 g/dl (3.4-5.0); ALK PHOS 64 U/L (45-117); BILIRUBIN,TOTAL 0.3 mg/dL (0.2-1.0); PHOSPHOROUS 3.2 mg/dL (2.5-4.9); SGOT/AST 27 U/L (15-37); SGPT/ALT 15 U/L (12-78); TOT PROT 5.5 g/dl (6.4-8.2)
--- NOTE | 2016-05-28 09:45 | PN ---
Physical Exam: SUBJECTIVE: Patient seen and examined at bedside this AM in ICU. Afebrile and without acute events overnight. Breathing well on NC4L. No coughing or wheezing noted. For repeat IR procedure later today (thrombectomy). OBJECTIVE: Vital Signs Period Temp Pulse Resp BP Sys/Reynoso Pulse Ox Last 24 Hr 98 F-98.5 F 78-92 14-25 88-145/56-85 96-100 GENERAL: The patient is awake, alert, and fully oriented, in no acute distress. HEENT: atraumatic, no lymphadenopathy or tenderness, moist membranes LUNGS: mild bibasilar crackles noted HEART: Regular rate and rhythm, S1, S2 ABDOMEN: Soft, nontender, nondistended, normoactive bowel sounds EXTREMITIES: 2+ pulses, warm, well-perfused, no edema. (-) blanca/johnson tests bilateral LE NEUROLOGICAL: Cranial nerves II through XII grossly intact. Normal speech, gait not observed. PSYCH: Normal mood, normal affect. SKIN: Warm, dry, normal turgor, no rashes or lesions noted Laboratory Results - last 24 hr 05/26/16 05/26/16 05/26/16 12:19 17:28 21:50 WBC RBC Hgb Hct MCV MCHC RDW Plt Count MPV Neutrophils % Lymphocytes % Monocytes % Eosinophils % Basophils % INR PTT (Actin FS) Sodium Potassium Chloride Carbon Dioxide Anion Gap BUN Creatinine Creat Clearance w eGFR POC Glucometer 121.23506 123.88281 168.85960 Random Glucose Calcium Phosphorus Magnesium Total Bilirubin AST ALT Alkaline Phosphatase Total Protein Albumin 05/27/16 05/27/16 05/27/16 06:37 11:16 15:15 WBC RBC Hgb Hct MCV MCHC RDW Plt Count MPV Neutrophils % Lymphocytes % Monocytes % Eosinophils % Basophils % INR PTT (Actin FS) 80.4 H D Sodium Potassium Chloride Carbon Dioxide Anion Gap BUN Creatinine Creat Clearance w eGFR POC Glucometer 145.50478 135.15659 Random Glucose Calcium Phosphorus Magnesium Total Bilirubin AST ALT Alkaline Phosphatase Total Protein Albumin 05/27/16 05/27/16 05/28/16 17:23 21:39 05:10 WBC 6.3 RBC 3.16 L Hgb 9.8 L Hct 29.5 L MCV 93.1 MCHC 33.4 RDW 14.4 Plt Count 83 L MPV 10.2 Neutrophils % 60.2 Lymphocytes % 22.9 Monocytes % 11.6 H Eosinophils % 4.7 H Basophils % 0.6 INR PTT (Actin FS) Sodium Potassium Chloride Carbon Dioxide Anion Gap BUN Creatinine Creat Clearance w eGFR POC Glucometer 219.41495 165.46439 Random Glucose Calcium Phosphorus Magnesium Total Bilirubin AST ALT Alkaline Phosphatase Total Protein Albumin 05/28/16 05/28/16 05/28/16 05:10 05:10 06:07 WBC RBC Hgb Hct MCV MCHC RDW Plt Count MPV Neutrophils % Lymphocytes % Monocytes % Eosinophils % Basophils % INR 1.22 H PTT (Actin FS) 47.2 H D Sodium 143 Potassium 4.1 Chloride 111 H Carbon Dioxide 23 Anion Gap 9 BUN 13 D Creatinine 0.9 Creat Clearance w eGFR > 60 POC Glucometer 168.56752 Random Glucose 121 H Calcium 8.1 L Phosphorus 3.2 Magnesium 2.0 Total Bilirubin 0.3 D AST 27 D ALT 15 D Alkaline Phosphatase 64 Total Protein 5.5 L Albumin 2.7 L Active Medications Generic Name Dose Route Start Last Admin Trade Name Freq PRN Reason Stop Dose Admin Acetaminophen 650 mg 05/22/16 16:36 05/23/16 13:12 Tylenol - PO 650 mg Q6H PRN Administration FEVER OR PAIN Chlorhexidine Gluconate 1 applic 05/22/16 22:00 05/27/16 21:46 Hibiclens For Decolonization - TP 1 applic HS MARV Administration Docusate Sodium 100 mg 05/24/16 08:54 05/27/16 21:29 Colace - PO 100 mg BID PRN Administration CONSTIPATION Heparin Sodium (Porcine) 1,000 unit 05/22/16 16:43 05/28/16 07:30 Heparin - IVPUSH 1,000 unit PRN PRN Administration Heparin Heparin Sodium (Porcine) 5,000 unit 05/22/16 16:43 05/27/16 09:08 Heparin - IVPUSH 5,000 unit PRN PRN Administration Heparin Heparin Sodium (Porcine) 25, 500 mls @ 20 mls/hr 05/22/16 16:45 05/28/16 07:30 000 unit/ Sodium Chloride IV 800 unit/hr TITR MARV Titration Protocol 1,000 UNIT/HR Lactated Ringer's 1,000 mls @ 42 mls/hr 05/26/16 23:45 05/27/16 21:27 Lactated Ringers Solution IV 42 mls/hr ASDIR MARV Administration Insulin Aspart 1 vial 05/22/16 22:00 05/28/16 11:24 Novolog Vial Sliding Scale - SQ Not Given [facility] Protocol Ondansetron HCl 4 mg 05/22/16 16:36 Zofran Injection IVPB Q6H PRN NAUSEA ASSESSMENT/PLAN: 81 year old female with a PMH of LE DVT, Sarcoidosis, and HLD/DM who presented to ED after sudden onset of lightheadedness and dyspnea while out shopping. She also reported mild right calf pain and swelling for several weeks. CT showed bilateral pulmonary embolism, extensive mediastinal lymphadenopathy. #Bilateral Pulmonary Embolism, RLE DVT: Unprovoked -s/p catheter-guided tPA & IVC filter placement by IR -for repeat RLE DVT Thrombectomy later today -on Heparin ggt at present -can start oral Coumadin or NOAC after procedure today -will need outpatient coagulopathy workup #Mediastinal lymphadenopathy -incidental finding on CTA -patient states she has history of sarcoidosis & TB exposure (, 40y ago) -will require workup as an outpatient -Heme/Onc consulted & following #Diabetes -ISS -FS ACHS -Diabetic diet Prophylaxis/FEN -Heparin for DVT prophylaxis -LR@42mls/hr, monitor electrolytes, Diabetic diet Dispo: can be transferred to floors for monitoring after procedure later today Visit type - Emergency Visit Emergency Visit: Yes ED Registration Date: 05/22/16 Care time: The patient presented to the Emergency Department on the above date and was hospitalized for further evaluation of their emergent condition. - New Patient This patient is new to me today: No - Critical Care Critical Care patient: Yes Total Critical Care Time (in minutes): 40 Critical Care Statement: The care of this patient involved high complexity decision making to prevent further life threatening deterioration of the patient 's condition and/or to evalute & treat vital organ system(s) failure or risk of failure.
--- NOTE | 2016-05-28 13:13 | PN ---
Teaching Attending Note Name of Resident: Fidel Quintanilla ATTENDING PHYSICIAN STATEMENT I saw and evaluated the patient. I reviewed the resident's note and discussed the case with the resident. I agree with the resident's findings and plan as documented. SUBJECTIVE: Patient seen and examined in the ICU. Awake and alert on NC O2. Feel about the same as yesterday. No CP. Remains on IV Heparin. For repeat IR intervention today of the LE. Intake & Output 05/25/16 05/26/16 05/27/16 05/28/16 23:59 23:59 23:59 23:59 Intake Total 1550 2067 1572 448 Output Total 300 500 800 300 Balance 1250 1567 772 148 Weight 192 lb 6.4 oz 192 lb 1.6 oz 193 lb 1.6 oz 185 lb 4.8 oz Last Vital Signs Temp Pulse Resp BP Pulse Ox 98.8 F 81 17 109/67 99 05/28/16 10:00 05/28/16 10:00 05/28/16 10:00 05/28/16 10:00 05/28/16 08:08 Active Medications Acetaminophen (Tylenol -) 650 mg PO Q6H PRN PRN Reason: FEVER OR PAIN Last Admin: 05/23/16 13:12 Dose: 650 mg Chlorhexidine Gluconate (Hibiclens For Decolonization -) 1 applic TP HS MARV Last Admin: 05/27/16 21:46 Dose: 1 applic Docusate Sodium (Colace -) 100 mg PO BID PRN PRN Reason: CONSTIPATION Last Admin: 05/27/16 21:29 Dose: 100 mg Enalaprilat (Vasotec Injection -) 1.25 mg IVPB Q6H-IV MARV Last Admin: 05/28/16 11:24 Dose: Not Given Heparin Sodium (Porcine) (Heparin -) 1,000 unit IVPUSH PRN PRN PRN Reason: Heparin Last Admin: 05/28/16 07:30 Dose: 1,000 unit Heparin Sodium (Porcine) (Heparin -) 5,000 unit IVPUSH PRN PRN PRN Reason: Heparin Last Admin: 05/27/16 09:08 Dose: 5,000 unit Heparin Sodium (Porcine) 25, (000 unit/ Sodium Chloride) 500 mls @ 20 mls/hr IV TITR MARV; 1,000 UNIT/HR PRN Reason: Protocol Last Titration: 05/28/16 07:30 Dose: 800 unit/hr Lactated Ringer's (Lactated Ringers Solution) 1,000 mls @ 42 mls/hr IV ASDIR [facility] Last Admin: 05/27/16 21:27 Dose: 42 mls/hr Insulin Aspart (Novolog Vial Sliding Scale -) 1 vial SQ ACHS MARV PRN Reason: Protocol Last Admin: 05/28/16 11:24 Dose: Not Given Ondansetron HCl (Zofran Injection) 4 mg IVPB Q6H PRN PRN Reason: NAUSEA Constitutional: Yes: Awake and alert, Mildly tachypneic at rest Eyes: Yes: Conjunctiva Clear, EOM Intact, PERRL HENT: Yes: Atraumatic, Normocephalic Neck: Yes: Supple, Trachea Midline. No: Lymphadenopathy Cardiovascular: Yes: Regular Rate and Rhythm, S1, S2. No: Murmur, Rub Respiratory: Yes: CTA Bilaterally, On NRBM, No: Accessory Muscle Use Gastrointestinal: Yes: Normal Bowel Sounds, Soft ...Rectal Exam: Yes: Deferred Renal/: Yes: WNL Breast(s): Yes: WNL Musculoskeletal: Yes: Muscle Pain Extremities: Yes: WNL. No: Cyanosis, Delayed Capillary Refill, Other (No clubbing) Edema: No Integumentary: Yes: WNL Neurological: Yes: WNL, Alert, Oriented, Non-focal ...Motor Strength: WNL Psychiatric: Yes: WNL Labs: Laboratory Results - last 24 hr 05/26/16 05/26/16 05/26/16 12:19 17:28 21:50 WBC RBC Hgb Hct MCV MCHC RDW Plt Count MPV Neutrophils % Lymphocytes % Monocytes % Eosinophils % Basophils % INR PTT (Actin FS) Sodium Potassium Chloride Carbon Dioxide Anion Gap BUN Creatinine Creat Clearance w eGFR POC Glucometer 121.49025 123.98283 168.14706 Random Glucose Calcium Phosphorus Magnesium Total Bilirubin AST ALT Alkaline Phosphatase Total Protein Albumin 05/27/16 05/27/16 05/27/16 06:37 11:16 15:15 WBC RBC Hgb Hct MCV MCHC RDW Plt Count MPV Neutrophils % Lymphocytes % Monocytes % Eosinophils % Basophils % INR PTT (Actin FS) 80.4 H D Sodium Potassium Chloride Carbon Dioxide Anion Gap BUN Creatinine Creat Clearance w eGFR POC Glucometer 145.73515 135.31003 Random Glucose Calcium Phosphorus Magnesium Total Bilirubin AST ALT Alkaline Phosphatase Total Protein Albumin 05/27/16 05/27/16 05/28/16 17:23 21:39 05:10 WBC 6.3 RBC 3.16 L Hgb 9.8 L Hct 29.5 L MCV 93.1 MCHC 33.4 RDW 14.4 Plt Count 83 L MPV 10.2 Neutrophils % 60.2 Lymphocytes % 22.9 Monocytes % 11.6 H Eosinophils % 4.7 H Basophils % 0.6 INR PTT (Actin FS) Sodium Potassium Chloride Carbon Dioxide Anion Gap BUN Creatinine Creat Clearance w eGFR POC Glucometer 219.73334 165.77504 Random Glucose Calcium Phosphorus Magnesium Total Bilirubin AST ALT Alkaline Phosphatase Total Protein Albumin 05/28/16 05/28/16 05/28/16 05:10 05:10 06:07 WBC RBC Hgb Hct MCV MCHC RDW Plt Count MPV Neutrophils % Lymphocytes % Monocytes % Eosinophils % Basophils % INR 1.22 H PTT (Actin FS) 47.2 H D Sodium 143 Potassium 4.1 Chloride 111 H Carbon Dioxide 23 Anion Gap 9 BUN 13 D Creatinine 0.9 Creat Clearance w eGFR > 60 POC Glucometer 168.82791 Random Glucose 121 H Calcium 8.1 L Phosphorus 3.2 Magnesium 2.0 Total Bilirubin 0.3 D AST 27 D ALT 15 D Alkaline Phosphatase 64 Total Protein 5.5 L Albumin 2.7 L Problem List - Problems (1) Acute respiratory failure with hypoxemia Code(s): J96.01 - ACUTE RESPIRATORY FAILURE WITH HYPOXIA (2) DVT (deep venous thrombosis) Code(s): I82.409 - ACUTE EMBOLISM AND THOMBOS UNSP DEEP VN UNSP LOWER EXTREMITY (3) Pulmonary embolism with acute cor pulmonale Code(s): I26.09 - OTHER PULMONARY EMBOLISM WITH ACUTE COR PULMONALE Qualifiers : Pulmonary embolism type: other Chronicity: acute Qualified Code( s): I26.09 - Other pulmonary embolism with acute cor pulmonale (4) Subacute massive pulmonary embolism Code(s): I26.99 - OTHER PULMONARY EMBOLISM WITHOUT ACUTE COR PULMONALE Assessment/Plan Submassive PE -> Currently hemodynamically stable. Remote Hx of DVT while on OCP Hx of 1 previous miscarriage PLAN: - For repeat IR intervention today of the LE - Fio2 for Spo2 >92 - PO as tolerated - Telemetry monitoring - Will need to decide on outpatient AC Dr Kc CCTime 35"
[2016-05-28] MEDS ORDERED: ALTEPLASE 50 MG VIAL IV ONE (16:00)
--- NOTE | 2016-05-28 17:32 | PN ---
Physical Exam: SUBJECTIVE: Patient seen and examined. She denies CP, Sob, lower ext pain, she is ready for her procedure. She has not had a BM. OBJECTIVE: Vital Signs Period Temp Pulse Resp BP Sys/Reynoso Pulse Ox Last 24 Hr 98.0 F-98.8 F 78-88 14-20 88-143/55-85 95-100 PE Neuro: alert, awake, cn 2-12intact HEENT: R sided neck dressing CDI Pulm: CTAB CV: s1 s2 rrr no mrg Abd: s nt nd +bs Ext: warm, no lower ext tenderness or erythema CBCD WBC 6.3 K/mm3 (4.0-10.0) 05/28/16 05:10 RBC 3.16 M/mm3 (3.60-5.2) L 05/28/16 05:10 Hgb 9.8 GM/dL (10.7-15.3) L 05/28/16 05:10 Hct 29.5 % (32.4-45.2) L 05/28/16 05:10 MCV 93.1 fl (80-96) 05/28/16 05:10 MCHC 33.4 g/dl (32.0-36.0) 05/28/16 05:10 RDW 14.4 % (11.6-15.6) 05/28/16 05:10 Plt Count 83 K/MM3 (134-434) L 05/28/16 05:10 MPV 10.2 fl (7.5-11.1) 05/28/16 05:10 CMP Sodium 143 mmol/L (136-145) 05/28/16 05:10 Potassium 4.1 mmol/L (3.5-5.1) 05/28/16 05:10 Chloride 111 mmol/L (98-107) H 05/28/16 05:10 Carbon Dioxide 23 mmol/L (21-32) 05/28/16 05:10 Anion Gap 9 (8-16) 05/28/16 05:10 BUN 13 mg/dL (7-18) D 05/28/16 05:10 Creatinine 0.9 mg/dL (0.55-1.02) 05/28/16 05:10 Creat Clearance w eGFR > 60 (>60) 05/28/16 05:10 Calcium 8.1 mg/dL (8.5-10.1) L 05/28/16 05:10 Total Bilirubin 0.3 mg/dL (0.2-1.0) D 05/28/16 05:10 AST 27 U/L (15-37) D 05/28/16 05:10 ALT 15 U/L (12-78) D 05/28/16 05:10 Alkaline Phosphatase 64 U/L (45-117) 05/28/16 05:10 Total Protein 5.5 g/dl (6.4-8.2) L 05/28/16 05:10 Albumin 2.7 g/dl (3.4-5.0) L 05/28/16 05:10 Active Medications Generic Name Dose Route Start Last Admin Trade Name Freq PRN Reason Stop Dose Admin Acetaminophen 650 mg 05/22/16 16:36 05/23/16 13:12 Tylenol - PO 650 mg Q6H PRN Administration FEVER OR PAIN Chlorhexidine Gluconate 1 applic 05/22/16 22:00 05/27/16 21:46 Hibiclens For Decolonization - TP 1 applic HS MARV Administration Docusate Sodium 100 mg 05/24/16 08:54 05/27/16 21:29 Colace - PO 100 mg BID PRN Administration CONSTIPATION Heparin Sodium (Porcine) 1,000 unit 05/22/16 16:43 05/28/16 07:30 Heparin - IVPUSH 1,000 unit PRN PRN Administration Heparin Heparin Sodium (Porcine) 5,000 unit 05/22/16 16:43 05/27/16 09:08 Heparin - IVPUSH 5,000 unit PRN PRN Administration Heparin Heparin Sodium (Porcine) 25, 500 mls @ 20 mls/hr 05/22/16 16:45 05/28/16 07:30 000 unit/ Sodium Chloride IV 800 unit/hr TITR MARV Titration Protocol 1,000 UNIT/HR Lactated Ringer's 1,000 mls @ 42 mls/hr 05/26/16 23:45 05/27/16 21:27 Lactated Ringers Solution IV 42 mls/hr ASDIR MARV Administration Insulin Aspart 1 vial 05/22/16 22:00 05/28/16 11:24 Novolog Vial Sliding Scale - SQ Not Given ACHS MARV Protocol Ondansetron HCl 4 mg 05/22/16 16:36 Zofran Injection IVPB Q6H PRN NAUSEA Imaging: - CT showed bilateral pulmonary embolism, extensive mediastinal lymphadenopathy Assessment: 81 year old female with a PMH of LE DVT, Sarcoidosis, and HLD/DM admitted with sudden onset of lightheadedness and dyspnea while out shopping, additionally states mild right calf pain and swelling for several weeks, IVC filter placed with thrombectomy 05/27 Plan: 1. Bilateral Pulmonary Embolism d/t unprovoked RLE DVT - For repeat RLE DVT Thrombectomy today - s/p catheter-guided tPA & IVC filter placement by IR 05/27 - Continue heparin ggt - Transition to coumadin following procedure - Coagulation work up to follow 2. Mediastinal lymphadenopathy on CTA - ? hx of sarcoidosis, had TB exposure years ago - Will need outpt work up and intermediate frame tender AC - Possible bx with IR, defer to heme and IR for decision 3. DM II - ISS, BGM ACHS Dispo: - Transfer to tele Visit type - Emergency Visit Emergency Visit: Yes ED Registration Date: 05/22/16 Care time: The patient presented to the Emergency Department on the above date and was hospitalized for further evaluation of their emergent condition. - New Patient This patient is new to me today: Yes Date on this admission: 05/28/16 - Critical Care Critical Care patient: No
[2016-05-28] MEDS ORDERED: SODIUM CHLORIDE 1,000 ML IV SCH (18:00)
[2016-05-28] MEDS ORDERED: PT OWN MED DRAWER 7, Y5N ONE (18:05)
[2016-05-28] MEDS: HEPARIN - 25,000 UNIT in SODIUM CHLORIDE 495 ML IV SCH (18:05)
[2016-05-28] MEDS ORDERED: ENALAPRILAT DIHYDRATE 1.25 MG/1 ML VIAL IVPB ONE (18:23)
[2016-05-28] MEDS: CHLORHEXIDINE GLUCONATE 4% CLEANSER FOR DECOLONIZATION TP SCH (22:00)
[2016-05-28] MEDS: LACTATED RINGERS SOLUTION 1,000 ML IV SCH (23:52)
[2016-05-29 01:33] LABS: INR 1.2 (0.82-1.09); PROTHROMBIN TIME (PATIENT) 13.2 SEC (9.98-11.88)
[2016-05-29] MEDS: INSULIN SLIDING SCALE (NOVOLOG) 1 VIAL SQ SCH ×4 (06:05→22:25)
[2016-05-29 06:36] LABS: BASOPHIL 0.4 % (0-2.0); EOSINOPHIL 3.1 % (0-4.5); MCH 31.1 pg (25.7-33.7); MCHC 33.3 g/dl (32.0-36.0); MEAN CELL VOLUME 93.5 fl (80-96); MEAN PLT VOLUME 9.9 fl (7.5-11.1); PLATELET COUNT 86 K/MM3 (134-434); RDW 14.3 % (11.6-15.6); WHITE BLOOD COUNT 6.5 K/mm3 (4.0-10.0)
[2016-05-29 06:45] LABS: ALBUMIN 2.8 g/dl (3.4-5.0); C-REACTIVE PROTEIN 3.4 MG/DL (0.00-0.3); CALCIUM 7.9 mg/dL (8.5-10.1); CREATININE 1.2 mg/dL (0.55-1.02); URIC ACID 4.4 mg/dL (2.6-7.2)
[2016-05-29 06:47] LABS: TOT PROT 5.7 g/dl (6.4-8.2)
[2016-05-29 07:06] LABS: INR 1.18 (0.82-1.09)
[2016-05-29 07:08] LABS: ACTIVATED PTT 33.8 SECONDS (26.9-34.4)
[2016-05-29] MEDS: HEPARIN NA (PORCINE) 5,000 UNITS/ML 1ML VIAL IVPUSH PRN (08:57)
[2016-05-29] MEDS: DOCUSATE SODIUM 100 MG CAPSULE (FP) PO PRN (08:58)
--- NOTE | 2016-05-29 11:24 | PN ---
Teaching Attending Note Name of Resident: Fidel Quintanilla ATTENDING PHYSICIAN STATEMENT I saw and evaluated the patient. I reviewed the resident's note and discussed the case with the resident. I agree with the resident's findings and plan as documented. SUBJECTIVE: Patient seen and examined in the ICU. Awake and alert on NC O2. S/P repeat IR intervention yesterday on the LE. Noted some hematuria overnight. Slight increase in Crea to 1.2. Feel about the same as yesterday. No CP. Remains on IV Heparin. Intake & Output 05/26/16 05/27/16 05/28/16 05/29/16 23:59 23:59 23:59 23:59 Intake Total 2067 1572 1176 1242 Output Total 555 895 1894 600 Balance 1567 772 176 642 Weight 192 lb 1.6 oz 193 lb 1.6 oz 185 lb 4.8 oz 187 lb Last Vital Signs Temp Pulse Resp BP Pulse Ox 98.2 F 77 16 123/79 97 05/29/16 06:00 05/29/16 08:00 05/29/16 09:00 05/29/16 08:00 05/29/16 09:00 Active Medications Acetaminophen (Tylenol -) 650 mg PO Q6H PRN PRN Reason: FEVER OR PAIN Last Admin: 05/23/16 13:12 Dose: 650 mg Chlorhexidine Gluconate (Hibiclens For Decolonization -) 1 applic TP HS MARV Last Admin: 05/28/16 22:00 Dose: 1 applic Docusate Sodium (Colace -) 100 mg PO BID PRN PRN Reason: CONSTIPATION Last Admin: 05/29/16 08:58 Dose: 100 mg Enoxaparin Sodium (Lovenox -) 80 mg SQ BID MARV Insulin Aspart (Novolog Vial Sliding Scale -) 1 vial SQ ACHS MARV PRN Reason: Protocol Last Admin: 05/29/16 06:05 Dose: Not Given Ondansetron HCl (Zofran Injection) 4 mg IVPB Q6H PRN PRN Reason: NAUSEA Polyethylene Glycol (Miralax (For Daily Use) -) 17 gm PO DAILY MARV Warfarin Sodium (Coumadin -) 5 mg PO DAILY@1800 MARV Constitutional: Yes: Awake and alert, NAD Eyes: Yes: Conjunctiva Clear, EOM Intact, PERRL HENT: Yes: Atraumatic, Normocephalic Neck: Yes: Supple, Trachea Midline. No: Lymphadenopathy Cardiovascular: Yes: Regular Rate and Rhythm, S1, S2. No: Murmur, Rub Respiratory: Yes: CTA Bilaterally, On NRBM, No: Accessory Muscle Use Gastrointestinal: Yes: Normal Bowel Sounds, Soft ...Rectal Exam: Yes: Deferred Renal/: Yes: WNL Breast(s): Yes: WNL Musculoskeletal: Yes: Muscle Pain Extremities: Yes: WNL. No: Cyanosis, Delayed Capillary Refill, Other (No clubbing) Edema: No Integumentary: Yes: WNL Neurological: Yes: WNL, Alert, Oriented, Non-focal ...Motor Strength: WNL Psychiatric: Yes: WNL Labs: Laboratory Results - last 24 hr 05/28/16 05/28/16 05/28/16 11:17 13:30 17:58 WBC RBC Hgb Hct MCV MCHC RDW Plt Count MPV Neutrophils % Lymphocytes % Monocytes % Eosinophils % Basophils % ESR INR PTT (Actin FS) 60.8 H Sodium Potassium Chloride Carbon Dioxide Anion Gap BUN Creatinine Creat Clearance w eGFR POC Glucometer 123.52382 124.01532 Random Glucose Uric Acid Calcium Total Bilirubin AST ALT Alkaline Phosphatase LD Total C-Reactive Protein Total Protein Albumin 05/28/16 05/28/16 05/28/16 18:45 23:47 23:50 WBC RBC Hgb Hct MCV MCHC RDW Plt Count MPV Neutrophils % Lymphocytes % Monocytes % Eosinophils % Basophils % ESR 30 INR PTT (Actin FS) 39.9 H D Sodium Potassium Chloride Carbon Dioxide Anion Gap BUN Creatinine Creat Clearance w eGFR POC Glucometer 164.21988 Random Glucose Uric Acid Calcium Total Bilirubin AST ALT Alkaline Phosphatase LD Total C-Reactive Protein Total Protein Albumin 05/29/16 05/29/16 05/29/16 01:26 06:00 06:00 WBC 6.5 RBC 2.98 L Hgb 9.3 L Hct 27.8 L MCV 93.5 MCHC 33.3 RDW 14.3 Plt Count 86 L MPV 9.9 Neutrophils % 67.0 Lymphocytes % 18.4 Monocytes % 11.1 H Eosinophils % 3.1 Basophils % 0.4 ESR INR 1.20 H 1.18 H PTT (Actin FS) 33.8 Sodium Potassium Chloride Carbon Dioxide Anion Gap BUN Creatinine Creat Clearance w eGFR POC Glucometer Random Glucose Uric Acid Calcium Total Bilirubin AST ALT Alkaline Phosphatase LD Total C-Reactive Protein Total Protein Albumin 05/29/16 05/29/16 05/29/16 06:00 06:00 06:01 WBC RBC Hgb Hct MCV MCHC RDW Plt Count MPV Neutrophils % Lymphocytes % Monocytes % Eosinophils % Basophils % ESR INR PTT (Actin FS) Sodium 145 Potassium 3.9 Chloride 111 H Carbon Dioxide 24 Anion Gap 10 BUN 17 D Creatinine 1.2 H D Creat Clearance w eGFR 43.23 POC Glucometer 89.18007 Random Glucose 103 Uric Acid 4.4 Calcium 7.9 L Total Bilirubin 1.0 D AST 49 H D ALT 14 Alkaline Phosphatase 60 LD Total 766 H C-Reactive Protein 3.4 H Total Protein 5.7 L Albumin 2.8 L Problem List - Problems (1) Acute respiratory failure with hypoxemia Code(s): J96.01 - ACUTE RESPIRATORY FAILURE WITH HYPOXIA (2) DVT (deep venous thrombosis) Code(s): I82.409 - ACUTE EMBOLISM AND THOMBOS UNSP DEEP VN UNSP LOWER EXTREMITY (3) Pulmonary embolism with acute cor pulmonale Code(s): I26.09 - OTHER PULMONARY EMBOLISM WITH ACUTE COR PULMONALE Qualifiers : Pulmonary embolism type: other Chronicity: acute Qualified Code( s): I26.09 - Other pulmonary embolism with acute cor pulmonale (4) Subacute massive pulmonary embolism Code(s): I26.99 - OTHER PULMONARY EMBOLISM WITHOUT ACUTE COR PULMONALE Assessment/Plan Submassive PE -> Currently hemodynamically stable. Remote Hx of DVT while on OCP Hx of 1 previous miscarriage PLAN: - FiO2 for Spo2 >92 - PO as tolerated - Telemetry monitoring - For Lovenox bridge with Coumadin Dr Kc CCTime 35"
[2016-05-29] MEDS: ENOXAPARIN NA (PORCINE) 80 MG/0.8 ML DISP.SYRIN SQ SCH ×2 (11:31→22:23)
[2016-05-29] MEDS: POLYETHYLENE GLYCOL 3350 119 GM BTL PO SCH (11:31)
--- NOTE | 2016-05-29 11:50 | PN ---
Physical Exam: SUBJECTIVE: Patient seen and examined. She states she was very disoriented last night she is at baseline today. Denies SOB, fatigue, dyspnea. Events: hematuria overnight, heparin gtt discontinued OBJECTIVE: Vital Signs Period Temp Pulse Resp BP Sys/Reynoso Pulse Ox Last 24 Hr 98.2 F-98.8 F 74-88 16-22 105-159/55-112 95-100 PE Neuro: alert, awake, cn 2-12intact HEENT: R sided neck dressing with dried blood, no tenderness Pulm: bi basilar crackles L >R +NC CV: s1 s2 rrr no mrg Abd: s nt nd +bs Ext: R groin dressing mild dried blood, no pain CBCD WBC 6.5 K/mm3 (4.0-10.0) 05/29/16 06:00 RBC 2.98 M/mm3 (3.60-5.2) L 05/29/16 06:00 Hgb 9.3 GM/dL (10.7-15.3) L 05/29/16 06:00 Hct 27.8 % (32.4-45.2) L 05/29/16 06:00 MCV 93.5 fl (80-96) 05/29/16 06:00 MCHC 33.3 g/dl (32.0-36.0) 05/29/16 06:00 RDW 14.3 % (11.6-15.6) 05/29/16 06:00 Plt Count 86 K/MM3 (134-434) L 05/29/16 06:00 MPV 9.9 fl (7.5-11.1) 05/29/16 06:00 CMP Sodium 145 mmol/L (136-145) 05/29/16 06:00 Potassium 3.9 mmol/L (3.5-5.1) 05/29/16 06:00 Chloride 111 mmol/L (98-107) H 05/29/16 06:00 Carbon Dioxide 24 mmol/L (21-32) 05/29/16 06:00 Anion Gap 10 (8-16) 05/29/16 06:00 BUN 17 mg/dL (7-18) D 05/29/16 06:00 Creatinine 1.2 mg/dL (0.55-1.02) H D 05/29/16 06:00 Creat Clearance w eGFR 43.23 (>60) 05/29/16 06:00 Calcium 7.9 mg/dL (8.5-10.1) L 05/29/16 06:00 Total Bilirubin 1.0 mg/dL (0.2-1.0) D 05/29/16 06:00 AST 49 U/L (15-37) H D 05/29/16 06:00 ALT 14 U/L (12-78) 05/29/16 06:00 Alkaline Phosphatase 60 U/L (45-117) 05/29/16 06:00 Total Protein 5.7 g/dl (6.4-8.2) L 05/29/16 06:00 Albumin 2.8 g/dl (3.4-5.0) L 05/29/16 06:00 05/29/16 05/29/16 05/29/16 06:00 06:00 06:00 INR 1.18 H Uric Acid 4.4 C-Reactive Protein 3.4 H Free Jardine LC, Quant Pending Free Lambda LC, Quant Pending Free Jardine/Lambda Ratio Pending Active Medications Generic Name Dose Route Start Last Admin Trade Name Freq PRN Reason Stop Dose Admin Acetaminophen 650 mg 05/22/16 16:36 05/23/16 13:12 Tylenol - PO 650 mg Q6H PRN Administration FEVER OR PAIN Chlorhexidine Gluconate 1 applic 05/22/16 22:00 05/28/16 22:00 Hibiclens For Decolonization - TP 1 applic HS MARV Administration Docusate Sodium 100 mg 05/24/16 08:54 05/29/16 08:58 Colace - PO 100 mg BID PRN Administration CONSTIPATION Enoxaparin Sodium 80 mg 05/29/16 10:00 05/29/16 11:31 Lovenox - SQ 80 mg BID MARV Administration Insulin Aspart 1 vial 05/22/16 22:00 05/29/16 06:05 Novolog Vial Sliding Scale - SQ Not Given ACHS COUNT INCLUDES [facility] Protocol Ondansetron HCl 4 mg 05/22/16 16:36 Zofran Injection IVPB Q6H PRN NAUSEA Polyethylene Glycol 17 gm 05/29/16 10:00 05/29/16 11:31 Miralax (For Daily Use) - PO 17 gm DAILY [facility] Administration Warfarin Sodium 5 mg 05/29/16 18:00 Coumadin - PO DAILY@1800 [facility] Imaging: - CTA showed bilateral pulmonary embolism, extensive mediastinal lymphadenopathy Assessment: 81 year old female with a PMH of LE DVT, Sarcoidosis, and HLD/DM admitted with sudden onset of lightheadedness and dyspnea while out shopping, additionally states mild right calf pain and swelling for several weeks, IVC filter placed with completion of thrombectomy 05/28. Plan: 1. Bilateral Pulmonary Embolism d/t unprovoked RLE DVT - s/p catheter-guided tPA & IVC filter placement 05/27 with completion of RLE thrombectomy 05/28 in IR - Stop heparin gtt - Start Lovenox 80mg BID - Start coumadin 5mg HS - Will call insurance to inquire NOAC coverage 2. Hematuria - Likely 2/ tPA - Hgb stable, pt asymptomatic - Will monitor 3. AMNA - Mild increase in cr - Encourage PO intake, possible from bleeding - AM BMP 4. Mediastinal lymphadenopathy on CTA - hx of sarcoidosis, had TB exposure years ago - Will need outpt work up and correction AC - Possible bx with IR, defer to heme and IR for decision 5. DM II - ISS, BGM ACHS Visit type - Emergency Visit Emergency Visit: Yes ED Registration Date: 05/22/16 Care time: The patient presented to the Emergency Department on the above date and was hospitalized for further evaluation of their emergent condition. - New Patient This patient is new to me today: No - Critical Care Critical Care patient: No
--- NOTE | 2016-05-29 13:26 | PN ---
Physical Exam: SUBJECTIVE: Patient seen and examined at bedside this AM in ICU. AAO and feels well. Had hematuria last night with mild bleed from right neck (site of catheter removal 2days ago). Heparin was held for an hour and bleeding stopped. No longer has hematuria as of this morning. Afebrile overnight & breathing is at baseline. OBJECTIVE: Vital Signs Period Temp Pulse Resp BP Sys/Reynoso Pulse Ox Last 24 Hr 98.2 F-98.8 F 74-88 16-22 105-159/55-112 95-100 GENERAL: The patient is awake, alert, and fully oriented, in no acute distress. HEENT: atraumatic, no lymphadenopathy or tenderness, moist membranes LUNGS: CTA bilaterally HEART: Regular rate and rhythm, S1, S2 ABDOMEN: Soft, nontender, nondistended, normoactive bowel sounds EXTREMITIES: 2+ pulses, warm, well-perfused, no edema. (-) blanca/johnson tests bilateral LE NEUROLOGICAL: Cranial nerves II through XII grossly intact. Normal speech, gait not observed. PSYCH: Normal mood, normal affect. SKIN: Warm, dry, normal turgor, no rashes or lesions noted Laboratory Results - last 24 hr 05/29/16 05/29/16 05/29/16 01:26 06:00 06:00 WBC 6.5 RBC 2.98 L Hgb 9.3 L Hct 27.8 L MCV 93.5 MCHC 33.3 RDW 14.3 Plt Count 86 L MPV 9.9 Neutrophils % 67.0 Lymphocytes % 18.4 Monocytes % 11.1 H Eosinophils % 3.1 Basophils % 0.4 ESR INR 1.20 H 1.18 H PTT (Actin FS) 33.8 Sodium Potassium Chloride Carbon Dioxide Anion Gap BUN Creatinine Creat Clearance w eGFR POC Glucometer Random Glucose Uric Acid Calcium Total Bilirubin AST ALT Alkaline Phosphatase LD Total C-Reactive Protein Total Protein Albumin 05/29/16 05/29/16 05/29/16 06:00 06:00 06:01 WBC RBC Hgb Hct MCV MCHC RDW Plt Count MPV Neutrophils % Lymphocytes % Monocytes % Eosinophils % Basophils % ESR INR PTT (Actin FS) Sodium 145 Potassium 3.9 Chloride 111 H Carbon Dioxide 24 Anion Gap 10 BUN 17 D Creatinine 1.2 H D Creat Clearance w eGFR 43.23 POC Glucometer [id number] Random Glucose 103 Uric Acid 4.4 Calcium 7.9 L Total Bilirubin 1.0 D AST 49 H D ALT 14 Alkaline Phosphatase 60 LD Total 766 H C-Reactive Protein 3.4 H Total Protein 5.7 L Albumin 2.8 L Active Medications Generic Name Dose Route Start Last Admin Trade Name Freq PRN Reason Stop Dose Admin Acetaminophen 650 mg 05/22/16 16:36 05/23/16 13:12 Tylenol - PO 650 mg Q6H PRN Administration FEVER OR PAIN Chlorhexidine Gluconate 1 applic 05/22/16 22:00 05/28/16 22:00 Hibiclens For Decolonization - TP 1 applic HS MARV Administration Docusate Sodium 100 mg 05/24/16 08:54 05/29/16 08:58 Colace - PO 100 mg BID PRN Administration CONSTIPATION Enoxaparin Sodium 80 mg 05/29/16 10:00 05/29/16 11:31 Lovenox - SQ 80 mg BID MARV Administration Insulin Aspart 1 vial 05/22/16 22:00 05/29/16 06:05 Novolog Vial Sliding Scale - SQ Not Given [facility] Protocol Ondansetron HCl 4 mg 05/22/16 16:36 Zofran Injection IVPB Q6H PRN NAUSEA Polyethylene Glycol 17 gm 05/29/16 10:00 05/29/16 11:31 Miralax (For Daily Use) - PO 17 gm DAILY MARV Administration Warfarin Sodium 5 mg 05/29/16 18:00 Coumadin - PO DAILY@1800 [facility] ASSESSMENT/PLAN: 81 year old female with a PMH of LE DVT, Sarcoidosis, and HLD/DM who presented to ED after sudden onset of lightheadedness and dyspnea while out shopping. She also reported mild right calf pain and swelling for several weeks. CT showed bilateral pulmonary embolism, extensive mediastinal lymphadenopathy. #Bilateral Pulmonary Embolism, RLE DVT: Unprovoked -s/p catheter-guided tPA & IVC filter placement by IR -RLE DVT Thrombectomy performed yesterday -now on Coumadin 5mg with Lovenox bridge -will need outpatient coagulopathy workup #Mediastinal lymphadenopathy -incidental finding on CTA -patient states she has history of sarcoidosis & TB exposure (, 40y ago) -will require workup as an outpatient -Heme/Onc consulted & following #Diabetes -ISS -FS ACHS -Diabetic diet #AMNA -likely secondary to NPO last few days (dehydratioN) alongside contrast use during procedures -tolerating PO intake at present -continue to trend Prophylaxis/FEN -Coumadin.Lovenox -tolerating PO intake, monitor electrolytes Dispo: can be transferred to floors for monitoring Visit type - Emergency Visit Emergency Visit: Yes ED Registration Date: 05/22/16 Care time: The patient presented to the Emergency Department on the above date and was hospitalized for further evaluation of their emergent condition. - New Patient This patient is new to me today: No - Critical Care Critical Care patient: Yes Total Critical Care Time (in minutes): 40 Critical Care Statement: The care of this patient involved high complexity decision making to prevent further life threatening deterioration of the patient 's condition and/or to evalute & treat vital organ system(s) failure or risk of failure.
[2016-05-29] MEDS ORDERED: WARFARIN NA 5 MG TABLET (UD) PO SCH (18:00)
[2016-05-29] MEDS: CHLORHEXIDINE GLUCONATE 4% CLEANSER FOR DECOLONIZATION TP SCH (22:26)
--- NOTE | 2016-05-29 23:42 | PN ---
Progress Note (short form) - Note Progress Note: PAtient sen and examined Denies any complaints Last Vital Signs Temp Pulse Resp BP Pulse Ox 98.8 F 81 17 109/67 99 05/28/16 10:00 05/28/16 10:00 05/28/16 10:00 05/28/16 10:00 05/28/16 08:08 HEENT: normal Cor: RSR, No murmurs, No gallops Lungs: Clear to P&A Abd: Soft, Normal bowel sounds, No organomegaly Ext:No significant edema Abnormal Lab Results 05/27/16 05/28/16 05/28/16 15:15 05:10 05:10 RBC 3.16 L Hgb 9.8 L Hct 29.5 L Plt Count 83 L Monocytes % 11.6 H Eosinophils % 4.7 H INR 1.22 H PTT (Actin FS) 80.4 H D 47.2 H D Chloride Random Glucose Calcium Total Protein Albumin 05/28/16 05/28/16 05:10 13:30 RBC Hgb Hct Plt Count Monocytes % Eosinophils % INR PTT (Actin FS) 60.8 H Chloride 111 H Random Glucose 121 H Calcium 8.1 L Total Protein 5.5 L Albumin 2.7 L Current Medications Acetaminophen (Tylenol -) 650 mg PO Q6H PRN PRN Reason: FEVER OR PAIN Last Admin: 05/23/16 13:12 Dose: 650 mg Chlorhexidine Gluconate (Hibiclens For Decolonization -) 1 applic TP HS [facility] Last Admin: 05/27/16 21:46 Dose: 1 applic Docusate Sodium (Colace -) 100 mg PO BID PRN PRN Reason: CONSTIPATION Last Admin: 05/27/16 21:29 Dose: 100 mg Heparin Sodium (Porcine) (Heparin -) 1,000 unit IVPUSH PRN PRN PRN Reason: Heparin Last Admin: 05/28/16 07:30 Dose: 1,000 unit Heparin Sodium (Porcine) (Heparin -) 5,000 unit IVPUSH PRN PRN PRN Reason: Heparin Last Admin: 05/27/16 09:08 Dose: 5,000 unit Heparin Sodium (Porcine) 25, (000 unit/ Sodium Chloride) 500 mls @ 20 mls/hr IV TITR MARV; 1,000 UNIT/HR PRN Reason: Protocol Last Titration: 05/28/16 07:30 Dose: 800 unit/hr Lactated Ringer's (Lactated Ringers Solution) 1,000 mls @ 42 mls/hr IV ASDIR [facility] Last Admin: 05/27/16 21:27 Dose: 42 mls/hr Insulin Aspart (Novolog Vial Sliding Scale -) 1 vial SQ ACHS [facility] PRN Reason: Protocol Last Admin: 05/28/16 11:24 Dose: Not Given Ondansetron HCl (Zofran Injection) 4 mg IVPB Q6H PRN PRN Reason: NAUSEA A/P 81 year old female with a significant past medical history of lower extremity DVT apx 40 years ago while on control pills, hyperlipidemia, pulmonary sarcoidosis, and NIDDM who presented to [facility] on 05/22/2016 complaining of sudden onset of lightheadedness and dyspnea while out shopping. She also reported mild right calf pain and swelling for several weeks. Imaging: Chest CT 05/22/2016 with extensive bilateral pulmonary embolism, extensive mediastinal lymphadenopathy. Pulmonary Embolism/extensive DVT - acute/unprovoked s/p tpa She is s/p IVC filter placement will need [facility] anticoagulants as outpatient, will need outpatient hematology follow up. She had catheter-guided tPA and IVC filter placement s/p RLE thrombectomy Mediastinal lymphadenopathy - incidental finding CTA shows extensive lymphadenopathy, will need further workup, possible biopsy once stabilized Possible lymph node biopsy when stable ?sarcoidosis will consider CT a/p once cr returns to baseline with plenty iv hydration Will disucss with IR based on CT a/p ? biopsy if amenable---may need to be done outpatient Nl coags/renal/hepatic function at baseline --being bridged from lovenox to coumadin will follow
[2016-05-30] MEDS: INSULIN SLIDING SCALE (NOVOLOG) 1 VIAL SQ SCH ×4 (05:59→22:52)
[2016-05-30] MEDS: POLYETHYLENE GLYCOL 3350 119 GM BTL PO SCH ×2 (06:08→09:23)
[2016-05-30] MEDS: DOCUSATE SODIUM 100 MG CAPSULE (FP) PO PRN (06:09)
[2016-05-30 08:41] LABS: INR 1.2 (0.82-1.09); PROTHROMBIN TIME (PATIENT) 13.3 SEC (9.98-11.88)
[2016-05-30 08:42] LABS: BASOPHIL 0.5 % (0-2.0); EOSINOPHIL 4.4 % (0-4.5); MCHC 33.1 g/dl (32.0-36.0); MEAN CELL VOLUME 93.6 fl (80-96); MEAN PLT VOLUME 9.6 fl (7.5-11.1); NEUTROPHILS 63.3 % (42.8-82.8); PLATELET COUNT 101 K/MM3 (134-434); RDW 14.5 % (11.6-15.6); WHITE BLOOD COUNT 6.9 K/mm3 (4.0-10.0)
[2016-05-30 09:01] LABS: CALCIUM 8.8 mg/dL (8.5-10.1)
[2016-05-30 09:03] LABS: CREATININE 1.1 mg/dL (0.55-1.02)
[2016-05-30] MEDS: ENOXAPARIN NA (PORCINE) 80 MG/0.8 ML DISP.SYRIN SQ SCH ×2 (09:20→22:30)
[2016-05-30] MEDS ORDERED: SODIUM CHLORIDE 1,000 ML IV SCH (10:45)
--- NOTE | 2016-05-30 10:47 | PN ---
Physical Exam: SUBJECTIVE: Patient seen and examined. she states she feels very weak and is unsteady while ambulating. OBJECTIVE: Vital Signs Period Temp Pulse Resp BP Sys/Reynoso Pulse Ox Last 24 Hr 97.8 F-99.7 F 81-90 17-18 91-110/52-60 94 PE Neuro: alert, awake, cn 2-12intact HEENT: R sided neck dressing with dried blood, no tenderness Pulm: CTAB CV: s1 s2 rrr no mrg Abd: s nt nd +bs Ext: warm, no le edema CBCD WBC 6.9 K/mm3 (4.0-10.0) 05/30/16 06:00 RBC 2.96 M/mm3 (3.60-5.2) L 05/30/16 06:00 Hgb 9.2 GM/dL (10.7-15.3) L 05/30/16 06:00 Hct 27.7 % (32.4-45.2) L 05/30/16 06:00 MCV 93.6 fl (80-96) 05/30/16 06:00 MCHC 33.1 g/dl (32.0-36.0) 05/30/16 06:00 RDW 14.5 % (11.6-15.6) 05/30/16 06:00 Plt Count 101 K/MM3 (134-434) L 05/30/16 06:00 MPV 9.6 fl (7.5-11.1) 05/30/16 06:00 CMP Sodium 143 mmol/L (136-145) 05/30/16 06:00 Potassium 4.4 mmol/L (3.5-5.1) 05/30/16 06:00 Chloride 109 mmol/L (98-107) H 05/30/16 06:00 Carbon Dioxide 27 mmol/L (21-32) 05/30/16 06:00 Anion Gap 7 (8-16) L 05/30/16 06:00 BUN 13 mg/dL (7-18) D 05/30/16 06:00 Creatinine 1.1 mg/dL (0.55-1.02) H 05/30/16 06:00 Creat Clearance w eGFR 43.23 (>60) 05/29/16 06:00 Calcium 8.8 mg/dL (8.5-10.1) 05/30/16 06:00 Total Bilirubin 1.0 mg/dL (0.2-1.0) D 05/29/16 06:00 AST 49 U/L (15-37) H D 05/29/16 06:00 ALT 14 U/L (12-78) 05/29/16 06:00 Alkaline Phosphatase 60 U/L (45-117) 05/29/16 06:00 Total Protein 5.7 g/dl (6.4-8.2) L 05/29/16 06:00 Albumin 2.8 g/dl (3.4-5.0) L 05/29/16 06:00 05/30/16 06:00 INR 1.20 H Active Medications Generic Name Dose Route Start Last Admin Trade Name Freq PRN Reason Stop Dose Admin Acetaminophen 650 mg 05/22/16 16:36 05/23/16 13:12 Tylenol - PO 650 mg Q6H PRN Administration FEVER OR PAIN Chlorhexidine Gluconate 1 applic 05/22/16 22:00 05/29/16 22:26 Hibiclens For Decolonization - TP 1 applic HS MARV Administration Docusate Sodium 100 mg 05/24/16 08:54 05/30/16 06:09 Colace - PO 100 mg BID PRN Administration CONSTIPATION Enoxaparin Sodium 80 mg 05/29/16 10:00 05/30/16 09:20 Lovenox - SQ 80 mg BID MARV Administration Sodium Chloride 1,000 mls @ 75 mls/hr 05/30/16 10:45 Normal Saline - IV 05/31/16 00:04 ASDIR MARV Insulin Aspart 1 vial 05/22/16 22:00 05/30/16 05:59 Novolog Vial Sliding Scale - SQ Not Given ACHS [facility] Protocol Ondansetron HCl 4 mg 05/22/16 16:36 Zofran Injection IVPB Q6H PRN NAUSEA Polyethylene Glycol 17 gm 05/29/16 10:00 05/30/16 09:23 Miralax (For Daily Use) - PO 17 gm DAILY MARV Administration Warfarin Sodium 5 mg 05/29/16 18:00 05/29/16 18:00 Coumadin - PO 5 mg DAILY@1800 MARV Administration Imaging: - CTA showed bilateral pulmonary embolism, extensive mediastinal lymphadenopathy Assessment: 81 year old female with a PMH of LE DVT, Sarcoidosis, and HLD/DM admitted with sudden onset of lightheadedness and dyspnea while out shopping, additionally states mild right calf pain and swelling for several weeks, IVC filter placed with completion of thrombectomy 05/28. Plan: 1. Bilateral Pulmonary Embolism d/t unprovoked RLE DVT - s/p catheter-guided tPA & IVC filter placement 05/27 with completion of RLE thrombectomy 05/28 in IR - Continue Lovenox 80mg BID with coumadin bridge - Coumadin 5mg HS 2. Hematuria - Likely 05/07 tPA - Slight decrease in hgb - Will monitor transfuse PRN hgb <7 3. AMNA - Mild improvement - Will give gentle fluids NS 75cc/hr x1L 4. Mediastinal lymphadenopathy on CTA - hx of sarcoidosis, had TB exposure years ago - Will need outpt work up and snf AC - Possible bx with IR, defer to heme and IR for decision, likely to be done as outpt 5. DM II - ISS, BGM ACHS Visit type - Emergency Visit Emergency Visit: Yes ED Registration Date: 05/22/16 Care time: The patient presented to the Emergency Department on the above date and was hospitalized for further evaluation of their emergent condition. - New Patient This patient is new to me today: No - Critical Care Critical Care patient: No
--- NOTE | 2016-05-30 10:58 | PN ---
Progress Note (short form) - Note Progress Note: PULMONARY Denies shortness of breath or chest pain. c/o generalized and leg weakness. Last Vital Signs Temp Pulse Resp BP Pulse Ox 97.8 F 90 18 104/58 94 L 05/30/16 09:49 05/30/16 09:49 05/30/16 09:49 05/30/16 09:49 05/29/16 21:00 Gen: NAD in chair Heart: RRR Lung: decreased breath sounds at the bases Abd: soft, nontender Ext: no edema CBC, BMP 05/30/16 06:00 05/30/16 06:00 INR, PTT INR 1.20 (0.82-1.09) H 05/30/16 06:00 Active Medications Acetaminophen (Tylenol -) 650 mg PO Q6H PRN PRN Reason: FEVER OR PAIN Last Admin: 05/23/16 13:12 Dose: 650 mg Chlorhexidine Gluconate (Hibiclens For Decolonization -) 1 applic TP HS [facility] Last Admin: 05/29/16 22:26 Dose: 1 applic Docusate Sodium (Colace -) 100 mg PO BID PRN PRN Reason: CONSTIPATION Last Admin: 05/30/16 06:09 Dose: 100 mg Enoxaparin Sodium (Lovenox -) 80 mg SQ BID [facility] Last Admin: 05/30/16 09:20 Dose: 80 mg Sodium Chloride (Normal Saline -) 1,000 mls @ 75 mls/hr IV ASDIR [facility] Stop: 05/31/16 00:04 Insulin Aspart (Novolog Vial Sliding Scale -) 1 vial SQ ACHS [facility] PRN Reason: Protocol Last Admin: 05/30/16 05:59 Dose: Not Given Ondansetron HCl (Zofran Injection) 4 mg IVPB Q6H PRN PRN Reason: NAUSEA Polyethylene Glycol (Miralax (For Daily Use) -) 17 gm PO DAILY [facility] Last Admin: 05/30/16 09:23 Dose: 17 gm Warfarin Sodium (Coumadin -) 5 mg PO DAILY@1800 [facility] Last Admin: 05/29/16 18:00 Dose: 5 mg A/P Submassive PE RLE DVT Pulmonary HTN Sarcoidosis DM Hyperlipidemia - continue anticoagulation - O2 to keep SpO2 >90% - age appropriate cancer screening as outpt - f/u chest imaging, PFTs as outpt - OOB to chair - rehab/PT
[2016-05-30 14:51] LABS: INR 1.19 (0.82-1.09); PROTHROMBIN TIME (PATIENT) 13.1 SEC (9.98-11.88)
[2016-05-30] MEDS: WARFARIN NA 2.5 MG TABLET (FP) PO SCH (17:02)
[2016-05-30] MEDS: CHLORHEXIDINE GLUCONATE 4% CLEANSER FOR DECOLONIZATION TP SCH (22:51)
[2016-05-31] MEDS: INSULIN SLIDING SCALE (NOVOLOG) 1 VIAL SQ SCH ×4 (06:18→21:17)
[2016-05-31 07:18] LABS: BASOPHIL 0.7 % (0-2.0); EOSINOPHIL 4.9 % (0-4.5); MCH 31.3 pg (25.7-33.7); MCHC 33.6 g/dl (32.0-36.0); MEAN CELL VOLUME 93.3 fl (80-96); PLATELET COUNT 152 K/MM3 (134-434); RDW 14.7 % (11.6-15.6); WHITE BLOOD COUNT 7.2 K/mm3 (4.0-10.0)
--- NOTE | 2016-05-31 09:22 | PN ---
Physical Exam: SUBJECTIVE: Patient seen and examined on tele. She is moving better, however at times with dizziness, she says her unsteady gait is not new. OBJECTIVE: Vital Signs Period Temp Pulse Resp BP Sys/Reynoso Pulse Ox Last 24 Hr 97.8 F-98.6 F 67-98 18-20 92-129/54-70 PE Neuro: alert, awake, cn 2-12intact HEENT: R sided neck dressing with dried blood Pulm: CTAB CV: s1 s2 rrr no mrg Abd: s nt nd +bs Ext: warm, no le edema CBCD WBC 7.2 K/mm3 (4.0-10.0) 05/31/16 06:00 RBC 3.15 M/mm3 (3.60-5.2) L 05/31/16 06:00 Hgb 9.9 GM/dL (10.7-15.3) L 05/31/16 06:00 Hct 29.4 % (32.4-45.2) L 05/31/16 06:00 MCV 93.3 fl (80-96) 05/31/16 06:00 MCHC 33.6 g/dl (32.0-36.0) 05/31/16 06:00 RDW 14.7 % (11.6-15.6) 05/31/16 06:00 Plt Count 152 K/MM3 (134-434) D 05/31/16 06:00 MPV 10.0 fl (7.5-11.1) 05/31/16 06:00 CMP Sodium 146 mmol/L (136-145) H 05/31/16 06:00 Potassium 4.4 mmol/L (3.5-5.1) 05/31/16 06:00 Chloride 112 mmol/L (98-107) H 05/31/16 06:00 Carbon Dioxide 27 mmol/L (21-32) 05/31/16 06:00 Anion Gap 7 (8-16) L 05/31/16 06:00 BUN 9 mg/dL (7-18) D 05/31/16 06:00 Creatinine 1.1 mg/dL (0.55-1.02) H 05/31/16 06:00 Creat Clearance w eGFR 43.23 (>60) 05/29/16 06:00 Calcium 8.5 mg/dL (8.5-10.1) 05/31/16 06:00 Total Bilirubin 1.0 mg/dL (0.2-1.0) D 05/29/16 06:00 AST 49 U/L (15-37) H D 05/29/16 06:00 ALT 14 U/L (12-78) 05/29/16 06:00 Alkaline Phosphatase 60 U/L (45-117) 05/29/16 06:00 Total Protein 5.7 g/dl (6.4-8.2) L 05/29/16 06:00 Albumin 2.8 g/dl (3.4-5.0) L 05/29/16 06:00 05/31/16 08:45 INR 1.33 H Active Medications Generic Name Dose Route Start Last Admin Trade Name Freq PRN Reason Stop Dose Admin Acetaminophen 650 mg 05/22/16 16:36 05/23/16 13:12 Tylenol - PO 650 mg Q6H PRN Administration FEVER OR PAIN Chlorhexidine Gluconate 1 applic 05/22/16 22:00 05/30/16 22:51 Hibiclens For Decolonization - TP 1 applic HS MARV Administration Docusate Sodium 100 mg 05/24/16 08:54 05/30/16 06:09 Colace - PO 100 mg BID PRN Administration CONSTIPATION Enoxaparin Sodium 80 mg 05/29/16 10:00 05/30/16 22:30 Lovenox - SQ 80 mg BID MARV Administration Insulin Aspart 1 vial 05/22/16 22:00 05/31/16 06:18 Novolog Vial Sliding Scale - SQ Not Given [facility] Protocol Ondansetron HCl 4 mg 05/22/16 16:36 Zofran Injection IVPB Q6H PRN NAUSEA Polyethylene Glycol 17 gm 05/29/16 10:00 05/30/16 09:23 Miralax (For Daily Use) - PO 17 gm DAILY [facility] Administration Warfarin Sodium 7.5 mg 05/30/16 18:00 05/30/16 17:02 Coumadin - PO 7.5 mg DAILY@1800 [facility] Administration Imaging: - CTA showed bilateral pulmonary embolism, extensive mediastinal lymphadenopathy Assessment: 81 year old female with a PMH of LE DVT, Sarcoidosis, and HLD/DM admitted with sudden onset of lightheadedness and dyspnea while out shopping, additionally states mild right calf pain and swelling for several weeks, IVC filter placed with completion of thrombectomy 05/28. Plan: 1. Bilateral Pulmonary Embolism d/t unprovoked RLE DVT - s/p catheter-guided tPA & IVC filter placement 05/27 with completion of RLE thrombectomy 05/28 in IR - Continue Lovenox 80mg BID with coumadin bridge - Coumadin 7.5mg HS - Will need to secure placement for INR checks, f/u w/ Dr. Momin office tomorrow and insurance for coumadin nurse 2. Hematuria - Resolved - Likely 05/07 tPA - Hgb rising and stable 3. AMNA - Stable after fluids - Encourage PO intake 4. 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 DM II - ISS, BGM ACHS 6. PT - Daily PT, pt needs walker Visit type - Emergency Visit Emergency Visit: Yes ED Registration Date: 05/22/16 Care time: The patient presented to the Emergency Department on the above date and was hospitalized for further evaluation of their emergent condition. - New Patient This patient is new to me today: No - Critical Care Critical Care patient: No - Discharge Referral Referred to [facility] Med P.C.: No
[2016-05-31 09:28] LABS: INR 1.33 (0.82-1.09); PROTHROMBIN TIME (PATIENT) 14.7 SEC (9.98-11.88)
[2016-05-31] MEDS: POLYETHYLENE GLYCOL 3350 119 GM BTL PO SCH (09:50)
[2016-05-31] MEDS: ENOXAPARIN NA (PORCINE) 80 MG/0.8 ML DISP.SYRIN SQ SCH ×2 (09:50→21:15)
[2016-05-31 09:54] LABS: CALCIUM 8.5 mg/dL (8.5-10.1); CREATININE 1.1 mg/dL (0.55-1.02)
--- NOTE | 2016-05-31 11:42 | PN ---
Progress Note (short form) - Note Progress Note: PULMONARY Denies shortness of breath or chest pain. c/o constipation. Last Vital Signs Temp Pulse Resp BP Pulse Ox 98.0 F 98 H 18 124/69 94 L 05/31/16 09:04 05/31/16 09:04 05/31/16 09:04 05/31/16 09:04 05/30/16 09:00 Gen: NAD in chair Heart: RRR Lung: decreased breath sounds at the bases Abd: soft, nontender Ext: no edema CBC, BMP 05/31/16 06:00 05/31/16 06:00 INR, PTT INR 1.33 (0.82-1.09) H 05/31/16 08:45 Active Medications Acetaminophen (Tylenol -) 650 mg PO Q6H PRN PRN Reason: FEVER OR PAIN Last Admin: 05/23/16 13:12 Dose: 650 mg Chlorhexidine Gluconate (Hibiclens For Decolonization -) 1 applic TP HS [facility] Last Admin: 05/30/16 22:51 Dose: 1 applic Docusate Sodium (Colace -) 100 mg PO BID PRN PRN Reason: CONSTIPATION Last Admin: 05/30/16 06:09 Dose: 100 mg Enoxaparin Sodium (Lovenox -) 80 mg SQ BID [facility] Last Admin: 05/31/16 09:50 Dose: 80 mg Insulin Aspart (Novolog Vial Sliding Scale -) 1 vial SQ ACHS [facility] PRN Reason: Protocol Last Admin: 05/31/16 06:18 Dose: Not Given Ondansetron HCl (Zofran Injection) 4 mg IVPB Q6H PRN PRN Reason: NAUSEA Polyethylene Glycol (Miralax (For Daily Use) -) 17 gm PO DAILY [facility] Last Admin: 05/31/16 09:50 Dose: 17 gm Warfarin Sodium (Coumadin -) 7.5 mg PO DAILY@1800 [facility] Last Admin: 05/30/16 17:02 Dose: 7.5 mg A/P Submassive PE RLE DVT Pulmonary HTN Sarcoidosis DM Hyperlipidemia - continue anticoagulation - O2 to keep SpO2 >90% - age appropriate cancer screening as outpt - f/u chest imaging, PFTs as outpt - OOB to chair - rehab/PT
[2016-05-31] MEDS: WARFARIN NA 2.5 MG TABLET (FP) PO SCH (17:04)
[2016-05-31] MEDS: CHLORHEXIDINE GLUCONATE 4% CLEANSER FOR DECOLONIZATION TP SCH (21:28)
[2016-06-01] MEDS: INSULIN SLIDING SCALE (NOVOLOG) 1 VIAL SQ SCH ×4 (06:01→21:26)
[2016-06-01 07:37] LABS: INR 1.7 (0.82-1.09); PROTHROMBIN TIME (PATIENT) 18.9 SEC (9.98-11.88)
[2016-06-01 07:41] LABS: BASOPHIL 0.5 % (0-2.0); EOSINOPHIL 5.1 % (0-4.5); MCH 31.6 pg (25.7-33.7); MCHC 33.7 g/dl (32.0-36.0); MEAN CELL VOLUME 93.9 fl (80-96); MEAN PLT VOLUME 10.2 fl (7.5-11.1); PLATELET COUNT 139 K/MM3 (134-434); RDW 14.7 % (11.6-15.6); WHITE BLOOD COUNT 6.7 K/mm3 (4.0-10.0)
[2016-06-01 07:42] LABS: CALCIUM 8.5 mg/dL (8.5-10.1); CREATININE 1.1 mg/dL (0.55-1.02)
[2016-06-01] MEDS: ENOXAPARIN NA (PORCINE) 80 MG/0.8 ML DISP.SYRIN SQ SCH ×2 (09:31→21:26)
[2016-06-01] MEDS: POLYETHYLENE GLYCOL 3350 119 GM BTL PO SCH (09:32)
[2016-06-01] MEDS: DOCUSATE SODIUM 100 MG CAPSULE (FP) PO PRN (09:33)
--- NOTE | 2016-06-01 10:44 | PN ---
Teaching Attending Note Name of Resident: Jud Armando ATTENDING PHYSICIAN STATEMENT I saw and evaluated the patient. I reviewed the resident's note and discussed the case with the resident. I agree with the resident's findings and plan as documented. PULMONARY alert,oob-chair,-c/o sob,-cp,-cough,+lower ext edema A/P Submassive PE s/p catheter directed thrombolysis, RLE DVT s/p IVC filter Pulmonary HTN Sarcoidosis DM Hyperlipidemia - anticoagulation - Coumadin as per inr - O2 - age appropriate cancer screening - f/u chest imaging outpatient - rehab/PT - pfts outpatient - HAYDEN level outpatient - f/u echo DR CARLISLE Problem List - Problems (1) Acute respiratory failure with hypoxemia Code(s): J96.01 - ACUTE RESPIRATORY FAILURE WITH HYPOXIA (2) Subacute massive pulmonary embolism Code(s): I26.99 - OTHER PULMONARY EMBOLISM WITHOUT ACUTE COR PULMONALE (3) DVT (deep venous thrombosis) Code(s): I82.409 - ACUTE EMBOLISM AND THOMBOS UNSP DEEP VN UNSP LOWER EXTREMITY (4) Hypertension Code(s): I10 - ESSENTIAL (PRIMARY) HYPERTENSION (5) Pulmonary embolism with acute cor pulmonale Code(s): I26.09 - OTHER PULMONARY EMBOLISM WITH ACUTE COR PULMONALE Qualifiers : Qualified Code(s): I26.09 - Other pulmonary embolism with acute cor pulmonale
--- NOTE | 2016-06-01 11:08 | PN ---
Physical Exam: SUBJECTIVE: Patient seen and examined patient resting in bed comfortably NAD. No acute events. afebrile and hemodynamically stable. feels well, states her breathing is back to baseline. Ambulating down hallway. complains of b/l LE edema, R>L. denies sob, chest pain , hemoptysis, palpitations, n/v, and pain, constipation or diarrhea. OBJECTIVE: Vital Signs Period Temp Pulse Resp BP Sys/Reynoso Pulse Ox Last 24 Hr 97.0 F-98.6 F 84-96 18-20 98-148/54-78 97-98 GENERAL: The patient is awake, alert, and fully oriented, in no acute distress. HEAD: Normal with no signs of trauma. EYES: PERRL, extraocular movements intact, sclera anicteric, conjunctiva clear. ENT:moist mucous membranes. NECK: supple. R side of neck clean dressing LUNGS: Breath sounds equal, clear to auscultation bilaterally, no wheezes, no crackles, no accessory muscle use. HEART: Regular rate and rhythm, S1, S2 ABDOMEN: Soft, nontender, nondistended, normoactive bowel sounds EXTREMITIES: 2+ pulses, warm, well-perfused, b/l 1+ edeme LE R>L NEUROLOGICAL: Cranial nerves II through XII grossly intact. Normal speech, gait not observed. PSYCH: Normal mood, normal affect. SKIN: Warm, dry Laboratory Results - last 24 hr 05/31/16 05/31/16 05/31/16 11:49 16:58 21:14 WBC RBC Hgb Hct MCV MCHC RDW Plt Count MPV Neutrophils % Lymphocytes % Monocytes % Eosinophils % Basophils % INR Sodium Potassium Chloride Carbon Dioxide Anion Gap BUN Creatinine POC Glucometer 109 124 161 Random Glucose Calcium 06/01/16 06/01/16 06/01/16 05:21 05:35 05:35 WBC 6.7 RBC 3.19 L Hgb 10.1 L Hct 30.0 L MCV 93.9 MCHC 33.7 RDW 14.7 Plt Count 139 MPV 10.2 Neutrophils % 54.0 Lymphocytes % 29.6 Monocytes % 10.8 H Eosinophils % 5.1 H Basophils % 0.5 INR 1.70 H Sodium Potassium Chloride Carbon Dioxide Anion Gap BUN Creatinine POC Glucometer 112 Random Glucose Calcium 06/01/16 05:35 WBC RBC Hgb Hct MCV MCHC RDW Plt Count MPV Neutrophils % Lymphocytes % Monocytes % Eosinophils % Basophils % INR Sodium 145 Potassium 4.1 Chloride 109 H Carbon Dioxide 29 Anion Gap 7 L BUN 8 Creatinine 1.1 H POC Glucometer Random Glucose 123 H Calcium 8.5 Active Medications Generic Name Dose Route Start Last Admin Trade Name Freq PRN Reason Stop Dose Admin Acetaminophen 650 mg 05/22/16 16:36 05/23/16 13:12 Tylenol - PO 650 mg Q6H PRN Administration FEVER OR PAIN Chlorhexidine Gluconate 1 applic 05/22/16 22:00 05/31/16 21:28 Hibiclens For Decolonization - TP Not Given HS MARV Docusate Sodium 100 mg 05/24/16 08:54 06/01/16 09:33 Colace - PO 100 mg BID PRN Administration CONSTIPATION Enoxaparin Sodium 80 mg 05/29/16 10:00 06/01/16 09:31 Lovenox - SQ 80 mg BID MARV Administration Insulin Aspart 1 vial 05/22/16 22:00 06/01/16 06:01 Novolog Vial Sliding Scale - SQ Not Given ACHS [facility] Protocol Ondansetron HCl 4 mg 05/22/16 16:36 Zofran Injection IVPB Q6H PRN NAUSEA Polyethylene Glycol 17 gm 05/29/16 10:00 06/01/16 09:32 Miralax (For Daily Use) - PO 17 gm DAILY MARV Administration Warfarin Sodium 7.5 mg 05/30/16 18:00 05/31/16 17:04 Coumadin - PO 7.5 mg DAILY@1800 MARV Administration ASSESSMENT/PLAN: Submassive PE -s/p catheter directed thrombolysis, -asymptomatic -coum bridge, INR 1.7 today -Collin SQ RLE DVT -s/p IVC filter 05/26 -LE edema expected to improve with ambulation Sarcoidosis -recommend outpatient opthalmology and cardiac eval -including TTE and cardiac MRI Pulmonary HTN -f/u with pulm outpatient NIDDM -sliding scale HLD -diet controlled Visit type - Emergency Visit Emergency Visit: Yes ED Registration Date: 05/22/16 Care time: The patient presented to the Emergency Department on the above date and was hospitalized for further evaluation of their emergent condition. - New Patient This patient is new to me today: Yes Date on this admission: 06/01/16 - Critical Care Critical Care patient: No - Discharge Referral Referred to [facility] No
--- NOTE | 2016-06-01 16:36 | PN ---
Physical Exam: SUBJECTIVE: Patient seen and examined. She feels well, still unsteady on her feet. She has lower extremity edema today. Denies SOB, calf pain. OBJECTIVE: Vital Signs Period Temp Pulse Resp BP Sys/Reynoso Pulse Ox Last 24 Hr 97.0 F-98.6 F 84-96 18-20 98-148/54-78 97-98 PE Neuro: alert, awake, cn 2-12intact HEENT: R sided neck dressing cdi Pulm: CTAB CV: s1 s2 rrr no mrg Abd: s nt nd +bs Ext: warm, le edema R>L non pitting Laboratory Results - last 24 hr 06/01/16 06/01/16 06/01/16 05:35 05:35 05:35 WBC 6.7 RBC 3.19 L Hgb 10.1 L Hct 30.0 L MCV 93.9 MCHC 33.7 RDW 14.7 Plt Count 139 MPV 10.2 Neutrophils % 54.0 Lymphocytes % 29.6 Monocytes % 10.8 H Eosinophils % 5.1 H Basophils % 0.5 INR 1.70 H Sodium 145 Potassium 4.1 Chloride 109 H Carbon Dioxide 29 Anion Gap 7 L BUN 8 Creatinine 1.1 H POC Glucometer Random Glucose 123 H Calcium 8.5 Active Medications Generic Name Dose Route Start Last Admin Trade Name [place] PRN Reason Stop Dose Admin Acetaminophen 650 mg 05/22/16 16:36 05/23/16 13:12 Tylenol - PO 650 mg Q6H PRN Administration FEVER OR PAIN Docusate Sodium 100 mg 05/24/16 08:54 06/01/16 09:33 Colace - PO 100 mg BID PRN Administration CONSTIPATION Enoxaparin Sodium 80 mg 05/29/16 10:00 06/01/16 09:31 Lovenox - SQ 80 mg BID MARV Administration Insulin Aspart 1 vial 05/22/16 22:00 06/01/16 11:55 Novolog Vial Sliding Scale - SQ Not Given ACHS [facility] Protocol Ondansetron HCl 4 mg 05/22/16 16:36 Zofran Injection IVPB Q6H PRN NAUSEA Polyethylene Glycol 17 gm 05/29/16 10:00 06/01/16 09:32 Miralax (For Daily Use) - PO 17 gm DAILY MARV Administration Warfarin Sodium 7.5 mg 05/30/16 18:00 05/31/16 17:04 Coumadin - PO 7.5 mg DAILY@1800 MARV Administration Imaging: - CTA showed bilateral pulmonary embolism, extensive mediastinal lymphadenopathy Assessment: 81 year old female with a PMH of LE DVT, Sarcoidosis, and HLD/DM admitted with sudden onset of lightheadedness and dyspnea while out shopping, additionally states mild right calf pain and swelling for several weeks, IVC filter placed with completion of thrombectomy 05/28. Plan: 1. Bilateral Pulmonary Embolism d/t unprovoked RLE DVT - s/p catheter-guided tPA & IVC filter placement 05/27 with completion of RLE thrombectomy 05/28 in IR - Continue Lovenox 80mg BID with coumadin bridge - Coumadin 7.5mg HS - Monitor INR 2. Lower extremity edema - ? diastolic HF - Elevated leg, likely referable from DVT - Will likely need repeat ECHO - Cardiology consult 3. Hematuria - Resolved - Likely 2/ tPA 4. AMNA - Appears to be plateauing 5. Mediastinal lymphadenopathy on CTA - hx of sarcoidosis, had TB exposure years ago - Will need outpt work up and senior living AC - Possible bx with IR, defer to heme and IR for decision, likely to be done as outpt - Repeat CTAP as oupt or inpt, need to d/w heme 6. DM II - ISS, BGM ACHS Dispo: - Likely dc home tomorrow with VNS if therapeutic INR Visit type - Emergency Visit Emergency Visit: Yes ED Registration Date: 05/22/16 Care time: The patient presented to the Emergency Department on the above date and was hospitalized for further evaluation of their emergent condition. - New Patient This patient is new to me today: No - Critical Care Critical Care patient: No
--- NOTE | 2016-06-01 17:06 | CON.CARD ---
Consult Consult Specialty:: Cardiology Referred by:: Hospitalist Medicine Reason for Consultation:: LE edema - History of Present Illness Chief Complaint: Dyspnea History of Present Illness: This is an 81 year old female with a history of lower extremity DVT x40 yrs ago while on OCP (does not recall having any hypercoaguable workup at that time), HTN, pulmonary sarcoidosis, and NIDDM presented with sudden onset of lightheadedness and dyspnea and mild right calf pain and swelling for several weeks, found to have bilateral PE with RV strain for which she underwent catheter-directed thrombolysis, RLE IVC filter placement and initiation of systemic anticoagulation, we were asked to see for increased right extremity edema, she denies exertional sxs of chest tightness, near or true syncope, palpitations, dyspnea. - History Source History Provided By: Patient Limitations to Obtaining History: No Limitations - Past Medical History SURGICAL SUPPLIES STERILIZER: No: Alzheimer's, CVA, Dementia, Migraine, Multiple Sclerosis, Peripheral Neuropathy, Parkinson's, Seizure, Syncope, TIA, Vertigo, Other Cardio/Vascular: Yes: Deep Vein Thrombosis, HTN, Hyperlipdemia Pulmonary: Yes: Other (Sarcoidosis). No: Asthma, Bronchitis, Cancer, COPD, O2 Dependent, Pneumonia, Previously Intubated, Pulmonary Embolus, Pulmonary Fibrosis, Sleep Apnea Gastrointestinal: No: Ascites, Cancer, Constipation, Crohn's Disease, Diverticulitis, Diverticulosis, Esophageal Varices, Gastritis, GERD, GI Bleed, Hemorrhoids, Hiatal Hernia, Inflamatory Bowel Disease, Irritable Bowel Disease, Pancreatitis, Peptic Ulcer Disease, Ulcerative Colitis, Other Hepatobiliary: No: Cirrhosis, Cholelithiasis, Cholecystitis, Choledocholithiasis , Hepatitis A, Hepatitis B, Hepatitis C, Other Renal/: No: Renal Failure, Renal Inusuff, BPH, Cancer, Hematuria, Hemodialysis , Neurogenic Bladder, Renal Calculi, UTI, Other ...: No Infectious Disease: No: AIDS, C-Diff, Herpes Zoster, HIV, MRSA, STD's, Tuberculosis, VREF, Other Psych: No: Addictions, Anxiety, Bipolar, Depression, Panic, Psychosis, Schizophrenia, Other Musculoskeletal: No: Bursitis, Chronic low back pain, Hemiparesis, Hemiplegia, Osteoarthritis, Paraplegia, Other Rheumatology: No: Fibromyalgia, Gout, Lupus, Rheumatoid Arthritis, Sarcoidosis, Vasculitis, Other Endocrine: Yes: Diabetes Mellitus. No: Greenway's Disease, Arnold's Disease, Diabetes Insipidus, Hyperparathyroidism, Hyperthyroidism, Hypothyroidism, Osteopenia, SIADH, Other Dermatology: No: Basal Cell, Cellulitis, Eczema, Melanoma, Psoriasis, Squamous Cell, Other Additional Medical History: one miscarriage - Alcohol/Substance Use Hx Alcohol Use: No History of Substance Use: reports: None - Smoking History Smoking history: Former smoker (daily light smoker for 10-15 years) Have you smoked in the past 12 months: No If you are a former smoker, when did you quit?: 1969 - Social History Usual Living Arrangement: With Spouse ADL: Independent History of Recent Travel: No (No recent long auto either) Home Medications - Allergies Allergies/Adverse Reactions: Allergies Allergy/AdvReac Type Severity Reaction Status Date / Time cephalexin monohydrate Allergy Severe Rash Verified 05/22/16 14:24 [From Keflex] - Home Medications Home Medications: Ambulatory Orders Cholecalciferol (Vitamin D3) [Vitamin D-3] 2,000 unit PO DAILY 04/11/15 Metformin HCl [Glucophage] 1,000 mg PO BID 04/11/15 Family Disease History - Family Disease History Family Disease History: Other: Father (CVA) Review of Systems - Review of Systems Cardiovascular: reports: Chest Pain Respiratory: reports: SOB on Exertion Neurological: reports: Dizziness Vital Signs: Vital Signs Temperature 98.2 F 06/01/16 14:10 Pulse Rate 87 06/01/16 14:10 Respiratory Rate 20 06/01/16 14:10 Blood Pressure 119/77 06/01/16 14:10 O2 Sat by Pulse Oximetry (%) 98 06/01/16 08:48 Constitutional: Yes: No Distress, Calm Neck: Yes: Supple Respiratory: Yes: Regular, CTA Bilaterally Gastrointestinal: Yes: Normal Bowel Sounds, Soft Cardiovascular: Yes: Regular Rate and Rhythm JVD: No Carotid Bruit: No Heart Sounds: Yes: S1, S2 Murmur: Yes: Systolic Murmur, Grade 1 Edema: Yes Edema: RLE: 1+ - Other Data Labs, Other Data: CBC, BMP 06/01/16 05:35 06/01/16 05:35 INR, PTT INR 1.70 (0.82-1.09) H 06/01/16 05:35 ST with S1Q3T3 pattern Ejection Fraction %: LVEF > or = 40 % Imaging - Results Cat Scan: Report Reviewed (Extensive bilateral PE with RV dilatation) Ultrasound: Report Reviewed (Extensive RLE DVT) Assessment/Plan Echo: Mod-severely decreased RV dilatation with severely decreased RV fxn, RVSP> 60 mmHg, septal deviation c/w RV pressure overlaod, normal LV size and fxn 1. Submassive PE s/p catheter directed thrombolysis, 2. RLE DVT s/p IVC filter 3. Cor pulmonale with pulmonary HTN 4. Sarcoidosis 5. DM 6. HTN 1. Lovenox->Coumadin per INR, age-appropiate malignancy screen and hypercoagulable w/u 2. Elevate right lower extremity 3. Consider cardiac MRI to assess myocardial involvement of sarcoid once stable 4. Thank you for consultative opportunity Problem List - Problems (1) Acute respiratory failure with hypoxemia Code(s): J96.01 - ACUTE RESPIRATORY FAILURE WITH HYPOXIA (2) Subacute massive pulmonary embolism Code(s): I26.99 - OTHER PULMONARY EMBOLISM WITHOUT ACUTE COR PULMONALE (3) DVT (deep venous thrombosis) Code(s): I82.409 - ACUTE EMBOLISM AND THOMBOS UNSP DEEP VN UNSP LOWER EXTREMITY (4) Hypertension Code(s): I10 - ESSENTIAL (PRIMARY) HYPERTENSION (5) Pulmonary embolism with acute cor pulmonale Code(s): I26.09 - OTHER PULMONARY EMBOLISM WITH ACUTE COR PULMONALE Qualifiers : Qualified Code(s): I26.09 - Other pulmonary embolism with acute cor pulmonale
[2016-06-01] MEDS: WARFARIN NA 2.5 MG TABLET (FP) PO SCH (17:45)
[2016-06-02] MEDS: INSULIN SLIDING SCALE (NOVOLOG) 1 VIAL SQ SCH ×2 (06:47→13:10)
[2016-06-02 08:31] LABS: INR 2.29 (0.82-1.09); PROTHROMBIN TIME (PATIENT) 25.6 SEC (9.98-11.88)
[2016-06-02] MEDS: ENOXAPARIN NA (PORCINE) 80 MG/0.8 ML DISP.SYRIN SQ SCH (10:20)
[2016-06-02] MEDS: POLYETHYLENE GLYCOL 3350 119 GM BTL PO SCH (10:21)
--- NOTE | 2016-06-02 10:58 | PN ---
Teaching Attending Note Name of Resident: Jud Armando ATTENDING PHYSICIAN STATEMENT I saw and evaluated the patient. I reviewed the resident's note and discussed the case with the resident. I agree with the resident's findings and plan as documented. pulmonary alert,feeling better,still dyspneic with exertion,-cp. IMP Submassive PE s/p catheter directed thrombolysis, RLE DVT s/p IVC filter Pulmonary HTN Sarcoidosis DM Hyperlipidemia - anticoagulation - Coumadin as per inr - O2 - age appropriate cancer screening - f/u chest imaging outpatient - rehab/PT - pfts outpatient - HAYDEN level outpatient - check pulse ox at rest and post exercise on ra DR CARLISLE Problem List - Problems (1) Acute respiratory failure with hypoxemia Code(s): J96.01 - ACUTE RESPIRATORY FAILURE WITH HYPOXIA (2) Subacute massive pulmonary embolism Code(s): I26.99 - OTHER PULMONARY EMBOLISM WITHOUT ACUTE COR PULMONALE (3) DVT (deep venous thrombosis) Code(s): I82.409 - ACUTE EMBOLISM AND THOMBOS UNSP DEEP VN UNSP LOWER EXTREMITY (4) Hypertension Code(s): I10 - ESSENTIAL (PRIMARY) HYPERTENSION (5) Pulmonary embolism with acute cor pulmonale Code(s): I26.09 - OTHER PULMONARY EMBOLISM WITH ACUTE COR PULMONALE Qualifiers : Qualified Code(s): I26.09 - Other pulmonary embolism with acute cor pulmonale Problem List - Problems (1) Acute respiratory failure with hypoxemia Code(s): J96.01 - ACUTE RESPIRATORY FAILURE WITH HYPOXIA (2) Subacute massive pulmonary embolism Code(s): I26.99 - OTHER PULMONARY EMBOLISM WITHOUT ACUTE COR PULMONALE (3) DVT (deep venous thrombosis) Code(s): I82.409 - ACUTE EMBOLISM AND THOMBOS UNSP DEEP VN UNSP LOWER EXTREMITY (4) Hypertension Code(s): I10 - ESSENTIAL (PRIMARY) HYPERTENSION (5) Pulmonary embolism with acute cor pulmonale Code(s): I26.09 - OTHER PULMONARY EMBOLISM WITH ACUTE COR PULMONALE Qualifiers : Qualified Code(s): I26.09 - Other pulmonary embolism with acute cor pulmonale
[2016-06-02 12:00] VITALS: PULSE 124
--- NOTE | 2016-06-02 12:22 | PN ---
Progress Note (short form) - Note Progress Note: Chief Complaint: Events noted, notes reviewed, reports persistent dyspnea and intermittent bilateral lower extremity edema predominantly ankle edema, denies any orthopnea or paroxysmal nocturnal dyspnea, denies any chest discomfort History of Present Illness: Seen and examined on telemetry. Events noted, notes reviewed, reports persistent dyspnea and intermittent bilateral lower extremity edema predominantly ankle edema, denies any orthopnea or paroxysmal nocturnal dyspnea , denies any chest discomfort Echocardiography dated 05/22/2016 revealed moderate to severely decreased RV systolic function with moderate to severe RV dilatation, normal left ventricular systolic function, moderate tricuspid valve regurgitation with RVSP of > 60 mmHg consistent with severe degree of Pulmonary hypertensionn Medications: Current Medications Acetaminophen (Tylenol -) 650 mg PO Q6H PRN PRN Reason: FEVER OR PAIN Last Admin: 05/23/16 13:12 Dose: 650 mg Docusate Sodium (Colace -) 100 mg PO BID PRN PRN Reason: CONSTIPATION Last Admin: 06/01/16 09:33 Dose: 100 mg Enoxaparin Sodium (Lovenox -) 80 mg SQ BID [facility] Last Admin: 06/02/16 10:20 Dose: 80 mg Insulin Aspart (Novolog Vial Sliding Scale -) 1 vial SQ ACHS [facility] PRN Reason: Protocol Last Admin: 06/02/16 06:47 Dose: Not Given Ondansetron HCl (Zofran Injection) 4 mg IVPB Q6H PRN PRN Reason: NAUSEA Polyethylene Glycol (Miralax (For Daily Use) -) 17 gm PO DAILY [facility] Last Admin: 06/02/16 10:21 Dose: 17 gm Warfarin Sodium (Coumadin -) 5 mg PO DAILY@1800 [facility] - Review of Systems Constitutional: denies: Chills or Fever Cardiovascular: As noted above Respiratory: denies: Cough or Sputum Production Gastrointestinal: denies: Nausea, Vomiting, Diarrhea, Constipation or Abdominal Pain Genitourinary: denies: Dysuria Neurological: denies: Dizziness or headaches Vital Signs: Last Vital Signs Temp Pulse Resp BP Pulse Ox 98.9 F 124 H 20 112/67 93 L 06/02/16 02:00 06/02/16 11:59 06/02/16 06:00 06/02/16 06:00 06/02/16 11:59 Constitutional: No Distress, Calm Neck: Supple Negative JVD no Bruit Respiratory: Clear to Auscultation and Percussion Bilaterally Cardiovascular: S1 S2 Regular Rate and Rhythm Gastrointestinal: Soft Benign Normal Bowel Sounds Ext: Trace Bilateral Ankle Edema Labs: CBC, BMP 06/01/16 05:35 06/01/16 05:35 INR, PTT INR 2.29 (0.82-1.09) H D 06/02/16 05:48 Assessment/Plan ASSESSMENT: 1. Sub-massive pulmonary embolism post catheter directed thrombolysis, unprovoked 2. Right lower extremity DVT post IVC filter 3. Cor pulmonale with pulmonary HTN 4. Sarcoidosis 5. HTN 6. DM PLAN: 1. Continue Coumadin as per INR, maintain INR between 2-3 with close monitoring of CBC 2. Followup echocardiography in 3-4 months for assessing RVSP 3. Recommended outpatient cardiac MRI to assess myocardial involvement with the above-noted Sarcoidosis 4. D/C home as per the primary team and advised the patient to followup in our office in 2-3 weeks Senia Edmonds MD
[2016-06-02 13:46] VITALS: BP 107/76; TEMP 98.2
--- NOTE | 2016-06-02 14:17 | PN ---
Physical Exam: SUBJECTIVE: Patient seen and examined patient resting in bed comfortably NAD. No acute events. afebrile and hemodynamically stable. feels well, breathing at baseline. Ambulating down hallway. denies sob, chest pain, hemoptysis, palpitations, n/v, and pain, constipation or diarrhea. OBJECTIVE: Vital Signs Period Temp Pulse Resp BP Sys/Reynoso Pulse Ox Last 24 Hr 97.9 F-98.9 F 80-124 18-20 107-125/65-84 93-98 GENERAL: The patient is awake, alert, and fully oriented, in no acute distress. HEAD: Normal with no signs of trauma. EYES: PERRL, extraocular movements intact, sclera anicteric, conjunctiva clear. ENT:moist mucous membranes. NECK: supple. R side of neck clean dressing LUNGS: Breath sounds equal, clear to auscultation bilaterally, no wheezes, no crackles, no accessory muscle use. HEART: Regular rate and rhythm, S1, S2 ABDOMEN: Soft, nontender, nondistended, normoactive bowel sounds EXTREMITIES: 2+ pulses, warm, well-perfused, b/l 1+ edeme LE R>L NEUROLOGICAL: Cranial nerves II through XII grossly intact. Normal speech, gait not observed. PSYCH: Normal mood, normal affect. SKIN: Warm, dry Laboratory Results - last 24 hr 06/01/16 06/02/16 06/02/16 20:54 05:48 06:30 INR 2.29 H D POC Glucometer 128 114 ASSESSMENT/PLAN: Submassive PE -s/p catheter directed thrombolysis, -asymptomatic -coum bridge, INR therapeutic -stable for d/c on coum RLE DVT -s/p IVC filter 05/26 -LE edema expected to improve with ambulation Sarcoidosis -recommend outpatient opthalmology and cardiac eval -including TTE and cardiac MRI Pulmonary HTN -f/u with pulm outpatient NIDDM -resume home meds HLD -diet controlled Visit type - Emergency Visit Emergency Visit: Yes ED Registration Date: 05/22/16 Care time: The patient presented to the Emergency Department on the above date and was hospitalized for further evaluation of their emergent condition. - New Patient This patient is new to me today: No - Critical Care Critical Care patient: No - Discharge Referral Referred to [facility] No
--- NOTE | 2016-06-02 15:47 | DS ---
Physical Exam: SUBJECTIVE: Patient seen and examined OBJECTIVE: Vital Signs Period Temp Pulse Resp BP Sys/Reynoso Pulse Ox Last 24 Hr 97.9 F-98.9 F 80-124 18-20 107-125/65-84 93-98 PHYSICAL EXAM GENERAL: The patient is awake, alert, and fully oriented, in no acute distress. HEAD: Normal with no signs of trauma. EYES: PERRL, extraocular movements intact, sclera anicteric, conjunctiva clear. ENT: Ears normal, nares patent, oropharynx clear without exudates, moist mucous membranes. NECK: Trachea midline, full range of motion, supple. LUNGS: Breath sounds equal, clear to auscultation bilaterally, no wheezes, no crackles, no accessory muscle use. HEART: Regular rate and rhythm, S1, S2 without murmur, rub or gallop. ABDOMEN: Soft, nontender, nondistended, normoactive bowel sounds, no guarding, no rebound, no hepatosplenomegaly, no masses. EXTREMITIES: 2+ pulses, warm, well-perfused, no edema. NEUROLOGICAL: Cranial nerves II through XII grossly intact. Normal speech, gait not observed. PSYCH: Normal mood, normal affect. SKIN: Warm, dry, normal turgor, no rashes or lesions noted. LABS Laboratory Results - last 24 hr 06/01/16 06/02/16 06/02/16 20:54 05:48 06:30 INR 2.29 H D POC Glucometer 128 114 HOSPITAL COURSE: Date of Admission:05/22/16 Date of Discharge: 06/02/16 Discharge Summary Reason For Visit: PULMONARY EMBOLISM W/ ACUTE COR PULMONALE Condition: Stable - Instructions Diet, Activity, Other Instructions: Please return to the ED for any new, persistent, or worsening symptoms. Follow up with Dr. Mosqueda next week 06/09/16 @10:30AM Keep appt with Dr. Luna for next week 06/10/15 3pm to continue your malignancy work up and possible biopsy, bring photo ID and and insurance card You will also need to make an appt with Dr. Burris (cardiology) for cardiac MRI to evaluated your heart and scarcoidosis involvement. Take coumadin 5mg every night, you will need your INR checked every 5 days, a visiting nurse will help arrange this, the service will come to your home tomorrow Referrals: Cheryl Cartagena MD [Staff Physician] - (06/10/15 3pm) Paras Kc MD [Staff Physician] - Elmer Hernandez MD [Staff Physician] - Yair Burris MD [Staff Physician] - Disposition: VNS/HOME HEALTH CARE - Home Medications Comprehensive Discharge Medication List: Ambulatory Orders Cholecalciferol (Vitamin D3) [Vitamin D3] 2,000 unit PO DAILY 04/11/15 Metformin HCl [Glucophage] 1,000 mg PO BID 04/11/15 Warfarin Sodium [Coumadin] 5 mg PO DAILY@1800 #30 tablet 06/02/16 - Discharge Referral Referred to [facility] No
[2016-06-02] MEDS ORDERED: WARFARIN NA 5 MG TABLET (UD) PO SCH (18:00)
== END 2016-06-02 13:59 | disposition home health service (06) | DRG 163 ==
LOC: JER 14:19 → JERBED 16:54 → JICU 18:40 → J4W 05-29 16:03
PROVIDERS: ADMIT Internal Medicine; ATTEND Nurse Practitioner Acute Care
PROC: 02CR3ZZ Extirpation of Matter from Left Pulmonary Artery, Percutaneous Approach (ICD-10-PCS; 2016-05-25)
PROC: 02CQ3ZZ Extirpation of Matter from Right Pulmonary Artery, Percutaneous Approach (ICD-10-PCS; 2016-05-25)
PROC: B31T1ZZ Fluoroscopy of Left Pulmonary Artery using Low Osmolar Contrast (ICD-10-PCS; 2016-05-25)
PROC: B31S1ZZ Fluoroscopy of Right Pulmonary Artery using Low Osmolar Contrast (ICD-10-PCS; 2016-05-25)
PROC: 3E03317 Introduction of Other Thrombolytic into Peripheral Vein, Percutaneous Approach (ICD-10-PCS; 2016-05-25)
PROC: 3E033GC Introduction of Other Therapeutic Substance into Peripheral Vein, Percutaneous Approach (ICD-10-PCS; 2016-05-25)
PROC: B31T1ZZ Fluoroscopy of Left Pulmonary Artery using Low Osmolar Contrast (ICD-10-PCS; 2016-05-27)
PROC: B31S1ZZ Fluoroscopy of Right Pulmonary Artery using Low Osmolar Contrast (ICD-10-PCS; 2016-05-27)
PROC: B51B1ZZ Fluoroscopy of Right Lower Extremity Veins using Low Osmolar Contrast (ICD-10-PCS; 2016-05-27)
PROC: 06CM3ZZ Extirpation of Matter from Right Femoral Vein, Percutaneous Approach (ICD-10-PCS; 2016-05-28)
PROC: B51B1ZZ Fluoroscopy of Right Lower Extremity Veins using Low Osmolar Contrast (ICD-10-PCS; 2016-05-28)
PROC: 06H03DZ Insertion of Intraluminal Device into Inferior Vena Cava, Percutaneous Approach (ICD-10-PCS; principal; 2016-05-29)
DX: I26.09 Other pulmonary embolism with acute cor pulmonale (principal); J96.01 Acute respiratory failure with hypoxia; N17.9 Acute kidney failure, unspecified; I82.411 Acute embolism and thrombosis of right femoral vein; I82.431 Acute embolism and thrombosis of right popliteal vein; E11.9 Type 2 diabetes mellitus without complications; E78.5 Hyperlipidemia, unspecified; Z87.891 Personal history of nicotine dependence; Z86.718 Personal history of other venous thrombosis and embolism; I10 Essential (primary) hypertension; D86.0 Sarcoidosis of lung; Z79.84 Long term (current) use of oral hypoglycemic drugs; R59.0 Localized enlarged lymph nodes; I27.2 Other secondary pulmonary hypertension; R31.9 Hematuria, unspecified
CPT/HCPCS: 36415; 36600; 37187; 37191; 37212; 61651; 71010-TC; 71260-TC; 74000-TC; 75743-TC; 75820-TC; 76000-TC; 76937-TC; 80048; 80053; 82550; 82803; 83605; 83615; 83735; 83880; 83883; 84100; 84484; 84550; 85025; 85027; 85379; 85610; 85651; 85730; 86140; 88300-TC; 93005; 93010; 93306-TC; 93970-TC; 94761; 97116-GP; 97161-GP; 99285-25; C1757; C1769; C1880; C1887; C1894; C9999; J1644; J2997

== ENCOUNTER 2021-09-09 04:07 | Day surgery (SDC) | payer OTHER ==
[2021-09-08 11:38] VITALS: BMI 27.8
[2021-09-09] MEDS ORDERED: LIDOCAINE HCL/PF 1% SDV 5ML VIAL ONE (07:09)
[2021-09-09] MEDS ORDERED: BUPIVACAINE HCL/PF 0.75% 10 ML VIAL ONE (07:09)
[2021-09-09] MEDS ORDERED: LIDOCAINE HCL 1% PRESERVATIVE FREE - 30ML VIAL IJ ONE (08:57)
[2021-09-09] MEDS ORDERED: BUPIVACAINE HCL/PF 0.75% 10 ML VIAL NR ONE (08:58)
[2021-09-09] MEDS ORDERED: ACETAMINOPHEN 325 MG TABLET (FP) ONE (09:25)
[2021-09-09 09:35] VITALS: TEMP 98.2
[2021-09-09 10:55] VITALS: BP 120/70; PULSE 70
== END 2021-09-09 10:10 | disposition home or self-care (01) ==
LOC: JASU-SURG 04:07
PROVIDERS: ATTEND Pain Medicine Pain Medicine
PROC: BR16YZZ Fluoroscopy of Lumbar Facet Joint(s) using Other Contrast (ICD-10-PCS; 2021-09-09)
PROC: 3E0T3BZ Introduction of Anesthetic Agent into Peripheral Nerves and Plexi, Percutaneous Approach (ICD-10-PCS; principal; 2021-09-09 09:00)
DX: M47.816 Spondylosis without myelopathy or radiculopathy, lumbar region (principal); I10 Essential (primary) hypertension; E11.9 Type 2 diabetes mellitus without complications; Z79.84 Long term (current) use of oral hypoglycemic drugs
CPT/HCPCS: 76000-TC-FY

== ENCOUNTER 2021-10-10 04:34 | Day surgery (SDC) | payer OTHER ==
[2021-10-09 10:56] VITALS: BMI 27.8
[2021-10-10] MEDS ORDERED: LIDOCAINE HCL/PF 1% SDV 5ML VIAL ONE (07:40)
[2021-10-10] MEDS ORDERED: BUPIVACAINE HCL/PF 0.75% 10 ML VIAL ONE (07:40)
[2021-10-10] MEDS ORDERED: LIDOCAINE 1% P/F 10 MG/ML VIAL INF ONE (11:18)
[2021-10-10] MEDS ORDERED: BUPIVACAINE HCL/PF 0.75% 10 ML VIAL NR ONE (11:20)
[2021-10-10 12:51] VITALS: BP 128/79; PULSE 81; TEMP 97.1
== END 2021-10-10 12:20 | disposition home or self-care (01) ==
LOC: JASU-SURG 04:34
PROVIDERS: ATTEND Pain Medicine Pain Medicine
PROC: 3E0T33Z Introduction of Anti-inflammatory into Peripheral Nerves and Plexi, Percutaneous Approach (ICD-10-PCS; 2021-10-10)
PROC: 3E0T3BZ Introduction of Anesthetic Agent into Peripheral Nerves and Plexi, Percutaneous Approach (ICD-10-PCS; principal; 2021-10-10 09:30)
DX: M47.816 Spondylosis without myelopathy or radiculopathy, lumbar region (principal)
CPT/HCPCS: 76000-TC-FY

== ENCOUNTER 2021-11-14 04:10 | Day surgery (SDC) | payer OTHER ==
[2021-11-11 14:36] VITALS: BMI 27.8
[2021-11-14] MEDS ORDERED: LIDOCAINE HCL/PF 1% SDV 5ML VIAL ONE (07:19)
[2021-11-14] MEDS ORDERED: DEXAMETHASONE SOD PHOSPHATE 10 MG/1 ML VIAL ONE (08:24)
[2021-11-14] MEDS ORDERED: LIDOCAINE HCL 2% (50ML VIAL) NR ONE ×2 (09:24→09:46)
[2021-11-14] MEDS ORDERED: LIDOCAINE HCL 1% PRESERVATIVE FREE - 30ML VIAL IJ ONE (09:24)
[2021-11-14] MEDS ORDERED: BUPIVACAINE HCL/PF 0.75% 10 ML VIAL NR ONE ×2 (09:26→09:50)
[2021-11-14 10:43] VITALS: BP 147/88; PULSE 84; RESP 18; TEMP 97.2
== END 2021-11-14 11:00 | disposition home or self-care (01) ==
LOC: JASU-SURG 04:10
PROVIDERS: ATTEND Pain Medicine Pain Medicine
PROC: 3E0T3TZ Introduction of Destructive Agent into Peripheral Nerves and Plexi, Percutaneous Approach (ICD-10-PCS; principal; 2021-11-14 09:15)
DX: M47.816 Spondylosis without myelopathy or radiculopathy, lumbar region (principal)
CPT/HCPCS: 76000-TC-FY; J1100

== ENCOUNTER 2021-12-30 04:31 | Day surgery (SDC) | payer OTHER ==
[2021-12-26 12:41] VITALS: BMI 27.8
[2021-12-30] MEDS ORDERED: TRIAMCINOLONE ACET 40MG/1ML VIAL ONE (07:46)
[2021-12-30] MEDS ORDERED: BUPIVACAINE HCL/PF 0.5% (5MG/ML) 10 ML VIAL ONE (07:46)
[2021-12-30] MEDS ORDERED: LIDOCAINE HCL/PF 1% SDV 5ML VIAL ONE (07:46)
[2021-12-30 10:09] VITALS: RESP 18
[2021-12-30] MEDS ORDERED: TRIAMCINOLONE ACETONIDE 40 MG/ML 10 ML VIAL IJ ONE (12:28)
[2021-12-30] MEDS ORDERED: LIDOCAINE HCL 1% PRESERVATIVE FREE - 30ML VIAL IJ ONE (12:28)
[2021-12-30] MEDS ORDERED: BUPIVACAINE HCL/PF 0.5% (5MG/ML) 10 ML VIAL IJ ONE (12:28)
[2021-12-30 13:35] VITALS: BP 120/77; PULSE 89; TEMP 97.9
== END 2021-12-30 13:20 | disposition home or self-care (01) ==
LOC: JASU-SURG 04:31
PROVIDERS: ATTEND Pain Medicine Pain Medicine
PROC: 3E0U3BZ Introduction of Anesthetic Agent into Joints, Percutaneous Approach (ICD-10-PCS; 2021-12-30)
PROC: 3E0U33Z Introduction of Anti-inflammatory into Joints, Percutaneous Approach (ICD-10-PCS; principal; 2021-12-30 11:30)
DX: M53.3 Sacrococcygeal disorders, not elsewhere classified (principal)
CPT/HCPCS: 76000-TC-FY

== ENCOUNTER 2022-02-03 04:45 | Day surgery (SDC) | payer OTHER ==
[2022-02-02 14:42] VITALS: BMI 27.8
[2022-02-03 11:43] VITALS: TEMP 96.9
[2022-02-03] MEDS ORDERED: DEXAMETHASONE SOD PHOSPHATE 10 MG/1 ML VIAL ONE (16:13)
[2022-02-03] MEDS ORDERED: LIDOCAINE HCL 1% PRESERVATIVE FREE - 30ML VIAL INF ONE (16:28)
[2022-02-03] MEDS ORDERED: DEXAMETHASONE SOD PHOSPHATE 10 MG/1 ML VIAL IVPUSH ONE (16:28)
[2022-02-03] MEDS ORDERED: IOHEXOL 180 MG/1 ML ML IJ ONE (16:28)
[2022-02-03 17:05] VITALS: BP 135/79; PULSE 86; RESP 16
[2022-02-03] MEDS ORDERED: ACETAMINOPHEN 325 MG TABLET (FP) ONE (17:06)
[2022-02-03] MEDS ORDERED: ACETAMINOPHEN 325 MG TABLET (FP) PO ONE (17:08)
== END 2022-02-03 17:30 | disposition home or self-care (01) ==
LOC: JASU-SURG 04:45
PROVIDERS: ATTEND Pain Medicine Pain Medicine
PROC: 3E0R33Z Introduction of Anti-inflammatory into Spinal Canal, Percutaneous Approach (ICD-10-PCS; 2022-02-03)
PROC: 3E0R3BZ Introduction of Anesthetic Agent into Spinal Canal, Percutaneous Approach (ICD-10-PCS; principal; 2022-02-03 14:50)
DX: M54.16 Radiculopathy, lumbar region (principal)
CPT/HCPCS: 76000-TC-FY; J1100

== ENCOUNTER 2022-03-31 04:22 | Day surgery (SDC) | payer OTHER ==
[2022-03-25 11:20] VITALS: BMI 29.1
[2022-03-31 06:19] VITALS: RESP 20
[2022-03-31] MEDS ORDERED: LIDOCAINE HCL/PF 1% SDV 5ML VIAL ONE (07:04)
[2022-03-31] MEDS ORDERED: LIDOCAINE HCL 1% PRESERVATIVE FREE - 30ML VIAL IJ ONE ×3 (07:22→08:25)
[2022-03-31 09:20] VITALS: BP 99/60; PULSE 90; TEMP 97.8
== END 2022-03-31 10:20 | disposition home or self-care (01) ==
LOC: JASU-SURG 04:22
PROVIDERS: ATTEND Pain Medicine Pain Medicine
PROC: 01HY3MZ Insertion of Neurostimulator Lead into Peripheral Nerve, Percutaneous Approach (ICD-10-PCS; principal; 2022-03-31 08:00)
DX: G89.4 Chronic pain syndrome (principal)
CPT/HCPCS: 64555; C1778

== ENCOUNTER 2022-05-05 13:44 | Emergency (ER) | payer OTHER ==
[2022-05-05 13:54] VITALS: BP 122/83; PULSE 90; RESP 20; TEMP 97.7; BMI 38.9
[2022-05-05] MEDS ORDERED: FUROSEMIDE 40 MG/4 ML INJECTABLE VIAL IVPUSH ONE (14:25)
[2022-05-05] MEDS ORDERED: FUROSEMIDE 40 MG/4 ML INJECTABLE VIAL ONE (14:48)
[2022-05-05 15:12] LABS: HEMATOCRIT 40.4 % (32.4-45.2); HEMOGLOBIN 13.2 GM/dL (10.7-15.3); MCH 32.3 pg (25.7-33.7); MCHC 32.5 g/dl (32.0-36.0); MEAN CELL VOLUME 99.2 fl (80-96); MEAN PLT VOLUME 10.7 fl (7.5-11.1); PLATELET COUNT 150 10^3/uL (134-434); RBC 4.08 M/mm3 (3.60-5.2); RDW 13.9 % (11.6-15.6); WHITE BLOOD COUNT 8.2 K/mm3 (4.0-10.0)
[2022-05-05 15:33] LABS: INR 1.57 (0.83-1.09); PROTHROMBIN TIME (PATIENT) 18.1 SEC (9.7-13.0)
[2022-05-05 15:36] LABS: ACTIVATED PTT 32.3 SECONDS (25.2-36.5)
[2022-05-05 15:43] LABS: ALBUMIN 3.4 g/dl (3.4-5.0); CALCIUM 9.4 mg/dL (8.5-10.1)
[2022-05-05 15:44] LABS: BLOOD UREA NITROGEN 27.4 mg/dL (7-18)
[2022-05-05 15:46] LABS: CREATININE 1.5 mg/dL (0.55-1.3)
[2022-05-05 15:48] LABS: BILIRUBIN,TOTAL 0.6 mg/dL (0.2-1); TOT PROT 6.8 g/dl (6.4-8.2)
[2022-05-05 15:52] LABS: N-TERMINAL BNP 91.7 pg/ml (5-450)
== END 2022-05-05 19:32 | disposition home or self-care (01) ==
LOC: JER 13:44
PROC: 3E033GC Introduction of Other Therapeutic Substance into Peripheral Vein, Percutaneous Approach (ICD-10-PCS; principal; 2022-05-05)
DX: S39.92XA Unspecified injury of lower back, initial encounter (principal); W10.9XXA Fall (on) (from) unspecified stairs and steps, initial encounter
CPT/HCPCS: 36415; 70450-TC; 71046-TC-FY; 72125-TC; 72170-TC-FY; 80053; 83036; 83880; 84484; 85027; 85610; 85730; 93005; 93010; 93970-TC; 99285-25

== ENCOUNTER 2022-06-09 04:17 | Day surgery (SDC) | payer OTHER ==
[2022-06-04 12:36] VITALS: BMI 29.4
[~2022-06-09 04:17] MED LIST: BUPIVACAINE HCL/PF 0.5% (5MG/ML) 10 ML VIAL IJ ONE; IOHEXOL 180 MG/1 ML ML IJ ONE; LIDOCAINE HCL 1% PRESERVATIVE FREE - 30ML VIAL IJ ONE; TRIAMCINOLONE ACET 40MG/1ML VIAL IM ONE
[2022-06-09] MEDS ORDERED: LIDOCAINE HCL/PF 1% SDV 5ML VIAL ONE (07:32)
[2022-06-09] MEDS ORDERED: DEXAMETHASONE SOD PHOSPHATE 10 MG/1 ML VIAL ONE ×2 (07:32→12:17)
[2022-06-09] MEDS ORDERED: LIDOCAINE HCL 1% PRESERVATIVE FREE - 30ML VIAL IJ ONE ×2 (13:16)
[2022-06-09] MEDS ORDERED: IOHEXOL 180 MG/1 ML ML IJ ONE (13:16)
[2022-06-09] MEDS ORDERED: DEXAMETHASONE SOD PHOSPHATE 10 MG/1 ML VIAL IVPUSH ONE (13:18)
[2022-06-09] MEDS ORDERED: ACETAMINOPHEN 500 MG TABLET (FP) PO ONE (14:05)
[2022-06-09 15:33] VITALS: BP 121/79; PULSE 88; RESP 20; TEMP 97.9
== END 2022-06-09 14:45 | disposition home or self-care (01) ==
LOC: JASU-SURG 04:17
PROVIDERS: ATTEND Pain Medicine Pain Medicine
PROC: 3E0R3BZ Introduction of Anesthetic Agent into Spinal Canal, Percutaneous Approach (ICD-10-PCS; 2022-06-09)
PROC: 3E0R33Z Introduction of Anti-inflammatory into Spinal Canal, Percutaneous Approach (ICD-10-PCS; principal; 2022-06-09 13:00)
DX: M54.16 Radiculopathy, lumbar region (principal)
CPT/HCPCS: 76000-TC-FY; J1100

== ENCOUNTER 2022-08-23 10:50 | Observation (INO) | payer OTHER ==
[2022-08-23] MEDS ORDERED: ACETAMINOPHEN 1000 MG/100 ML BAG IVPB ONE (11:53)
[2022-08-23] MEDS ORDERED: ACETAMINOPHEN INJECTION 100 ML IVPB ONE (11:55)
[2022-08-23 12:15] LABS: BASO % 0.6 % (0-2.0); EOS % 1.1 % (0-4.5); HEMATOCRIT 37.2 % (32.4-45.2); HEMOGLOBIN 12.4 GM/dL (10.7-15.3); LYMPH % 15.9 % (8-40); MCH 31.8 pg (25.7-33.7); MCHC 33.4 g/dl (32.0-36.0); MEAN CELL VOLUME 95.3 fl (80-96); MEAN PLT VOLUME 9.2 fl (7.5-11.1); MONO % 10.3 % (3.8-10.2); NEUT % 72.1 % (42.8-82.8); PLATELET COUNT 99 10^3/uL (134-434); RBC 3.91 M/mm3 (3.60-5.2); RDW 13.5 % (11.6-15.6)
[2022-08-23 12:42] LABS: POTASSIUM 4.2 mmol/L (3.5-5.1)
[2022-08-23 12:44] LABS: ALBUMIN 3.6 g/dl (3.4-5.0); BLOOD UREA NITROGEN 20.1 mg/dL (7-18)
[2022-08-23 12:46] LABS: CREATININE 1.3 mg/dL (0.55-1.3)
[2022-08-23 12:49] LABS: BILIRUBIN,TOTAL 0.6 mg/dL (0.2-1)
[2022-08-23] MEDS ORDERED: KETOROLAC TROMETHAMINE 15 MG/ML VIAL IVPUSH ONE (15:13)
[2022-08-23] MEDS ORDERED: KETOROLAC TROMETHAMINE 15 MG/ML VIAL ONE (15:20)
[2022-08-23] MEDS ORDERED: ARTIFICIAL TEARS (POLYVINYL ALCOHOL) OPTH DROPS OU PRN (17:26)
[2022-08-23] MEDS ORDERED: ACETAMINOPHEN 325 MG TABLET (FP) PO PRN (17:28)
[2022-08-23] MEDS ORDERED: LIDOCAINE 5% TOPICAL PATCH TP ONE (17:32)
[2022-08-23] MEDS ORDERED: LIDOCAINE 5% TOPICAL PATCH ONE (17:42)
[2022-08-23 20:54] VITALS: BMI 25.8
[2022-08-23] MEDS: GABAPENTIN 400 MG CAPSULE PO SCH (21:27)
[2022-08-23] MEDS: HEPARIN NA (PORCINE) 5,000 UNITS/ML 1ML VIAL SQ SCH (21:27)
[2022-08-23] MEDS: ASCORBIC ACID 500 MG TABLET (FP) PO SCH (21:27)
[2022-08-23] MEDS: ROSUVASTATIN CA 20 MG TABLET PO SCH (21:27)
[2022-08-23] MEDS: LIDOCAINE PATCH REMOVAL MC SCH (21:28)
[2022-08-23] MEDS: KETOROLAC TROMETHAMINE 15 MG/ML VIAL IVPUSH PRN (22:59)
[2022-08-24] MEDS: GABAPENTIN 400 MG CAPSULE PO SCH ×3 (06:01→22:02)
[2022-08-24] MEDS: metFORMIN HCL 500 MG TABLET (FP) PO SCH (06:01)
[2022-08-24] MEDS: KETOROLAC TROMETHAMINE 15 MG/ML VIAL IVPUSH PRN ×2 (08:34→22:03)
[2022-08-24] MEDS: HEPARIN NA (PORCINE) 5,000 UNITS/ML 1ML VIAL SQ SCH ×2 (09:23→22:02)
[2022-08-24] MEDS: ASCORBIC ACID 500 MG TABLET (FP) PO SCH ×2 (09:23→22:02)
[2022-08-24] MEDS: ASPIRIN COATED 81 MG TABLET.EC PO SCH (09:23)
[2022-08-24] MEDS: TIMOLOL 0.5% OPHTHALMIC SOL 5 ML BOTTLE OD SCH (11:04)
[2022-08-24] MEDS ORDERED: DOCUSATE SODIUM 100 MG CAPSULE (FP) PO PRN (14:04)
[2022-08-24] MEDS: ROSUVASTATIN CA 20 MG TABLET PO SCH (22:02)
[2022-08-24] MEDS: LIDOCAINE PATCH REMOVAL MC SCH (22:12)
[2022-08-25] MEDS: metFORMIN HCL 500 MG TABLET (FP) PO SCH (06:24)
[2022-08-25] MEDS: GABAPENTIN 400 MG CAPSULE PO SCH ×3 (06:24→21:17)
[2022-08-25] MEDS: ASPIRIN COATED 81 MG TABLET.EC PO SCH (09:13)
[2022-08-25] MEDS: ASCORBIC ACID 500 MG TABLET (FP) PO SCH ×2 (09:13→21:17)
[2022-08-25] MEDS: HEPARIN NA (PORCINE) 5,000 UNITS/ML 1ML VIAL SQ SCH ×2 (09:13→21:17)
[2022-08-25] MEDS: TIMOLOL 0.5% OPHTHALMIC SOL 5 ML BOTTLE OD SCH (09:13)
[2022-08-25] MEDS: LIDOCAINE 5% TOPICAL PATCH TP SCH (14:25)
[2022-08-25] MEDS ORDERED: chlordiazePOXIDE 5 MG CAPSULE PO PRN (14:37)
[2022-08-25] MEDS: KETOROLAC TROMETHAMINE 15 MG/ML VIAL IVPUSH PRN (19:57)
[2022-08-25] MEDS: ROSUVASTATIN CA 10 MG TABLET PO SCH (21:17)
[2022-08-25] MEDS: LIDOCAINE PATCH REMOVAL MC SCH ×2 (21:18)
[2022-08-26] MEDS: GABAPENTIN 400 MG CAPSULE PO SCH ×3 (06:03→22:14)
[2022-08-26] MEDS: metFORMIN HCL 500 MG TABLET (FP) PO SCH (06:03)
[2022-08-26] MEDS: KETOROLAC TROMETHAMINE 15 MG/ML VIAL IVPUSH PRN (06:07)
[2022-08-26] MEDS: PATIENT'S OWN MEDICATION (NON-FORMULARY) (Difluprednate [Durezol] 5 ML Drops) OP SCH (07:55)
[2022-08-26] MEDS: ASCORBIC ACID 500 MG TABLET (FP) PO SCH ×2 (10:12→22:14)
[2022-08-26] MEDS: ASPIRIN COATED 81 MG TABLET.EC PO SCH (10:12)
[2022-08-26] MEDS: TIMOLOL 0.5% OPHTHALMIC SOL 5 ML BOTTLE OD SCH (10:13)
[2022-08-26] MEDS: LIDOCAINE 5% TOPICAL PATCH TP SCH (10:13)
[2022-08-26] MEDS: HEPARIN NA (PORCINE) 5,000 UNITS/ML 1ML VIAL SQ SCH ×2 (10:13→22:14)
[2022-08-26] MEDS: ROSUVASTATIN CA 10 MG TABLET PO SCH (22:14)
[2022-08-26] MEDS: LIDOCAINE PATCH REMOVAL MC SCH ×2 (22:22)
[2022-08-27] MEDS: metFORMIN HCL 500 MG TABLET (FP) PO SCH (06:17)
[2022-08-27] MEDS: GABAPENTIN 400 MG CAPSULE PO SCH ×2 (06:17→13:14)
[2022-08-27] MEDS: LIDOCAINE 5% TOPICAL PATCH TP SCH (09:52)
[2022-08-27] MEDS: TIMOLOL 0.5% OPHTHALMIC SOL 5 ML BOTTLE OD SCH (09:53)
[2022-08-27] MEDS: ASCORBIC ACID 500 MG TABLET (FP) PO SCH (09:54)
[2022-08-27] MEDS: ASPIRIN COATED 81 MG TABLET.EC PO SCH (09:54)
[2022-08-27] MEDS: HEPARIN NA (PORCINE) 5,000 UNITS/ML 1ML VIAL SQ SCH (09:59)
[2022-08-27 14:56] VITALS: RESP 18
[2022-08-27 15:43] VITALS: BP 107/66; PULSE 81; TEMP 99
== END 2022-08-27 16:04 ==
LOC: JER 10:50 → JERBED 17:00 → J5S 20:49
PROVIDERS: ADMIT Internal Medicine; ATTEND Internal Medicine
PROC: 3E033NZ Introduction of Analgesics, Hypnotics, Sedatives into Peripheral Vein, Percutaneous Approach (ICD-10-PCS; principal; 2022-08-23)
PROC: 3E023GC Introduction of Other Therapeutic Substance into Muscle, Percutaneous Approach (ICD-10-PCS; 2022-08-23)
PROC: 3E0333Z Introduction of Anti-inflammatory into Peripheral Vein, Percutaneous Approach (ICD-10-PCS; 2022-08-23)
PROC: 3E0333Z Introduction of Anti-inflammatory into Peripheral Vein, Percutaneous Approach (ICD-10-PCS; 2022-08-23)
DX: M54.50 Low back pain, unspecified (principal); E11.9 Type 2 diabetes mellitus without complications; G89.29 Other chronic pain; H40.9 Unspecified glaucoma; Z88.8 Allergy status to other drugs, medicaments and biological substances; Z99.89 Dependence on other enabling machines and devices; N83.209 Unspecified ovarian cyst, unspecified side; Z29.8 Encounter for other specified prophylactic measures; E78.5 Hyperlipidemia, unspecified
CPT/HCPCS: 0241U-QW; 36415; 72100-TC-FY; 72131-TC; 72192-TC; 73502-TC-LT-FY; 80053; 82962; 85025; 93005; 93010; 96372; 96374; 96375; 97116-GP; 97162-GP; 99285-25; G0378; J1644

== ENCOUNTER 2022-09-17 09:01 | Observation (INO) | payer OTHER ==
[2022-09-17] MEDS ORDERED: ACETAMINOPHEN 1000 MG/100 ML BAG IVPB ONE (10:26)
[2022-09-17] MEDS ORDERED: ACETAMINOPHEN INJECTION 100 ML IVPB ONE (10:31)
[2022-09-17 10:40] LABS: BASO % 0.7 % (0-2.0); EOS % 4.3 % (0-4.5); HEMATOCRIT 37.5 % (32.4-45.2); HEMOGLOBIN 12.1 GM/dL (10.7-15.3); LYMPH % 25.2 % (8-40); MCH 31.4 pg (25.7-33.7); MCHC 32.3 g/dl (32.0-36.0); MEAN CELL VOLUME 97.4 fl (80-96); MEAN PLT VOLUME 9.8 fl (7.5-11.1); MONO % 11.5 % (3.8-10.2); NEUT % 58.3 % (42.8-82.8); PLATELET COUNT 129 10^3/uL (134-434); RBC 3.85 M/mm3 (3.60-5.2); RDW 13.7 % (11.6-15.6); WHITE BLOOD COUNT 6.1 K/mm3 (4.0-10.0)
[2022-09-17 10:50] LABS: INR 1.14 (0.83-1.09); PROTHROMBIN TIME (PATIENT) 13.2 SEC (9.7-13.0)
[2022-09-17 10:53] LABS: ACTIVATED PTT 28.2 SECONDS (25.2-36.5)
[2022-09-17 11:01] LABS: POTASSIUM 4.1 mmol/L (3.5-5.1)
[2022-09-17 11:03] LABS: BLOOD UREA NITROGEN 11.1 mg/dL (7-18); CALCIUM 9.4 mg/dL (8.5-10.1); MAGNESIUM 1.9 mg/dL (1.8-2.4)
[2022-09-17 11:04] LABS: ALBUMIN 3.2 g/dl (3.4-5.0)
[2022-09-17 11:06] LABS: CREATININE 1.1 mg/dL (0.55-1.3)
[2022-09-17 11:08] LABS: BILIRUBIN,TOTAL 0.6 mg/dL (0.2-1); TOT PROT 6.2 g/dl (6.4-8.2)
[2022-09-17] MEDS ORDERED: ACETAMINOPHEN 500 MG TABLET (FP) PO PRN (16:02)
[2022-09-17 16:38] LABS: EPI CELLS 7 /uL (0-25.1); HYALINE CASTS 0 /uL (0-3.1); URINE APPEARANCE CLEAR; URINE BACTERIA 133 /uL (0-1359); URINE BILIRUBIN NEGATIVE (NEGATIVE); URINE COLOR YELLOW; URINE GLUCOSE (UA) 3+ (NEGATIVE); URINE KETONE NEGATIVE (NEGATIVE); URINE LEUK ESTERASE TRACE (NEGATIVE); URINE NITRITE NEGATIVE (NEGATIVE); URINE PROTEIN NEGATIVE (NEGATIVE); URINE RBC 6 /uL (0-23.9); URINE UROBILINOGEN 0.2 mg/dL (0.2-1.0); URINE WBC 24 /uL (0-25.8)
[2022-09-17] MEDS: INSULIN SLIDING SCALE (NOVOLOG) 1 VIAL SQ SCH ×2 (17:20→22:47)
[2022-09-17 17:42] VITALS: BMI 25.0
[2022-09-17] MEDS: ROSUVASTATIN CA 10 MG TABLET PO SCH (22:47)
[2022-09-17] MEDS: GABAPENTIN 300 MG CAPSULE PO SCH (22:49)
[2022-09-18] MEDS: GABAPENTIN 300 MG CAPSULE PO SCH ×3 (06:16→23:15)
[2022-09-18] MEDS: ACETAMINOPHEN 325 MG TABLET (FP) PO PRN (06:16)
[2022-09-18] MEDS: INSULIN SLIDING SCALE (NOVOLOG) 1 VIAL SQ SCH ×4 (06:38→23:16)
[2022-09-18 09:31] LABS: BASO % 0.7 % (0-2.0); EOS % 4.5 % (0-4.5); HEMATOCRIT 38.7 % (32.4-45.2); MCH 31.9 pg (25.7-33.7); MCHC 33.6 g/dl (32.0-36.0); MEAN PLT VOLUME 9.3 fl (7.5-11.1); MONO % 12.1 % (3.8-10.2); NEUT % 62.7 % (42.8-82.8); PLATELET COUNT 126 10^3/uL (134-434); RBC 4.07 M/mm3 (3.60-5.2); WHITE BLOOD COUNT 6.7 K/mm3 (4.0-10.0)
[2022-09-18 09:41] LABS: POTASSIUM 4.2 mmol/L (3.5-5.1)
[2022-09-18 09:49] LABS: ALBUMIN 3.2 g/dl (3.4-5.0)
[2022-09-18 09:50] LABS: BLOOD UREA NITROGEN 12.2 mg/dL (7-18); CALCIUM 9.3 mg/dL (8.5-10.1)
[2022-09-18 09:52] LABS: PHOSPHOROUS 4.2 mg/dL (2.5-4.9)
[2022-09-18 09:54] LABS: BILIRUBIN,TOTAL 1.3 mg/dL (0.2-1); TOT PROT 6.3 g/dl (6.4-8.2)
[2022-09-18] MEDS: ENOXAPARIN NA (PORCINE) 40 MG/0.4 ML DISP.SYRIN SQ SCH (10:04)
[2022-09-18] MEDS: ASPIRIN COATED 81 MG TABLET.EC PO SCH (10:04)
[2022-09-18] MEDS: TIMOLOL 0.5% OPHTHALMIC SOL 5 ML BOTTLE OD SCH (10:58)
[2022-09-18] MEDS: ARTIFICIAL TEARS (POLYVINYL ALCOHOL) OPTH DROPS OU PRN (11:02)
[2022-09-18] MEDS: LIDOCAINE 5% TOPICAL PATCH TP SCH (12:11)
[2022-09-18] MEDS: ACETAMINOPHEN 500 MG TABLET (FP) PO SCH ×2 (12:11→18:00)
[2022-09-18] MEDS: ROSUVASTATIN CA 10 MG TABLET PO SCH (23:16)
[2022-09-18] MEDS: LIDOCAINE PATCH REMOVAL MC SCH (23:18)
[2022-09-19] MEDS: ACETAMINOPHEN 500 MG TABLET (FP) PO SCH ×5 (00:58→23:53)
[2022-09-19] MEDS: GABAPENTIN 300 MG CAPSULE PO SCH ×3 (07:22→21:07)
[2022-09-19] MEDS: INSULIN SLIDING SCALE (NOVOLOG) 1 VIAL SQ SCH ×4 (07:22→21:16)
[2022-09-19] MEDS: ENOXAPARIN NA (PORCINE) 40 MG/0.4 ML DISP.SYRIN SQ SCH (11:01)
[2022-09-19] MEDS: ASPIRIN COATED 81 MG TABLET.EC PO SCH (11:02)
[2022-09-19] MEDS: TIMOLOL 0.5% OPHTHALMIC SOL 5 ML BOTTLE OD SCH (11:02)
[2022-09-19] MEDS: LIDOCAINE 5% TOPICAL PATCH TP SCH (11:03)
[2022-09-19] MEDS: ARTIFICIAL TEARS (POLYVINYL ALCOHOL) OPTH DROPS OU PRN (11:12)
[2022-09-19] MEDS: PATIENT'S OWN MEDICATION (NON-FORMULARY) (Difluprednate [Durezol] 5 ML Drops) OD SCH (15:13)
[2022-09-19] MEDS: ROSUVASTATIN CA 10 MG TABLET PO SCH (21:07)
[2022-09-19] MEDS: LIDOCAINE PATCH REMOVAL MC SCH (21:15)
[2022-09-20] MEDS: ACETAMINOPHEN 500 MG TABLET (FP) PO SCH ×4 (05:27→23:44)
[2022-09-20] MEDS: GABAPENTIN 300 MG CAPSULE PO SCH ×3 (05:27→22:27)
[2022-09-20] MEDS: INSULIN SLIDING SCALE (NOVOLOG) 1 VIAL SQ SCH ×4 (06:58→22:29)
[2022-09-20] MEDS: ASPIRIN COATED 81 MG TABLET.EC PO SCH (09:44)
[2022-09-20] MEDS: ENOXAPARIN NA (PORCINE) 40 MG/0.4 ML DISP.SYRIN SQ SCH (09:44)
[2022-09-20] MEDS: ARTIFICIAL TEARS (POLYVINYL ALCOHOL) OPTH DROPS OU PRN (09:45)
[2022-09-20] MEDS: TIMOLOL 0.5% OPHTHALMIC SOL 5 ML BOTTLE OD SCH (09:45)
[2022-09-20] MEDS ORDERED: LIDOCAINE 5% TOPICAL PATCH TP SCH (10:48)
[2022-09-20] MEDS: FUROSEMIDE 20 MG TABLET (FP) PO SCH (11:23)
[2022-09-20] MEDS: POLYETHYLENE GLYCOL (HEALTHYLAX) 3350 17 GM PACKET PO SCH ×2 (11:23→22:26)
[2022-09-20] MEDS: LIDOCAINE 5% TOPICAL PATCH TP SCH ×2 (12:13→13:26)
[2022-09-20] MEDS: DOCUSATE SODIUM 100 MG CAPSULE (FP) PO SCH (22:26)
[2022-09-20] MEDS: ROSUVASTATIN CA 10 MG TABLET PO SCH (22:28)
[2022-09-21] MEDS: LIDOCAINE PATCH REMOVAL MC SCH (06:56)
[2022-09-21] MEDS: GABAPENTIN 300 MG CAPSULE PO SCH (06:59)
[2022-09-21] MEDS: ACETAMINOPHEN 500 MG TABLET (FP) PO SCH ×3 (07:00→17:10)
[2022-09-21] MEDS: INSULIN SLIDING SCALE (NOVOLOG) 1 VIAL SQ SCH ×4 (07:01→21:43)
[2022-09-21] MEDS: ENOXAPARIN NA (PORCINE) 40 MG/0.4 ML DISP.SYRIN SQ SCH (09:28)
[2022-09-21] MEDS: TIMOLOL 0.5% OPHTHALMIC SOL 5 ML BOTTLE OD SCH (09:29)
[2022-09-21] MEDS: FUROSEMIDE 20 MG TABLET (FP) PO SCH (09:29)
[2022-09-21] MEDS: ASPIRIN COATED 81 MG TABLET.EC PO SCH (09:29)
[2022-09-21] MEDS: POLYETHYLENE GLYCOL (HEALTHYLAX) 3350 17 GM PACKET PO SCH ×2 (09:29→21:34)
[2022-09-21] MEDS: LIDOCAINE 5% TOPICAL PATCH TP SCH (09:34)
[2022-09-21] MEDS ORDERED: GABAPENTIN 300 MG CAPSULE PO SCH (10:28)
[2022-09-21] MEDS: GABAPENTIN 400 MG CAPSULE PO SCH ×2 (14:03→21:34)
[2022-09-21] MEDS: ROSUVASTATIN CA 10 MG TABLET PO SCH (21:33)
[2022-09-21] MEDS: DOCUSATE SODIUM 100 MG CAPSULE (FP) PO SCH (21:33)
[2022-09-22] MEDS: LIDOCAINE PATCH REMOVAL MC SCH ×2 (00:07→22:14)
[2022-09-22] MEDS ORDERED: FAMOTIDINE 20 MG/50 ML IVPB 20 MG/50 ML MG IVPB ONE (00:36)
[2022-09-22] MEDS: ACETAMINOPHEN 500 MG TABLET (FP) PO SCH ×4 (02:15→17:37)
[2022-09-22] MEDS: GABAPENTIN 400 MG CAPSULE PO SCH ×3 (06:22→22:14)
[2022-09-22] MEDS: INSULIN SLIDING SCALE (NOVOLOG) 1 VIAL SQ SCH ×4 (06:43→22:33)
[2022-09-22 09:01] LABS: BASO % 0.6 % (0-2.0); EOS % 6.6 % (0-4.5); HEMATOCRIT 40.7 % (32.4-45.2); HEMOGLOBIN 13.5 GM/dL (10.7-15.3); LYMPH % 29.5 % (8-40); MCH 31.4 pg (25.7-33.7); MCHC 33.2 g/dl (32.0-36.0); MEAN CELL VOLUME 94.5 fl (80-96); MEAN PLT VOLUME 9.2 fl (7.5-11.1); MONO % 13.5 % (3.8-10.2); NEUT % 49.8 % (42.8-82.8); PLATELET COUNT 153 10^3/uL (134-434); RBC 4.31 M/mm3 (3.60-5.2); RDW 14.1 % (11.6-15.6); WHITE BLOOD COUNT 5.8 K/mm3 (4.0-10.0)
[2022-09-22 09:16] LABS: POTASSIUM 4.3 mmol/L (3.5-5.1)
[2022-09-22 09:19] LABS: CALCIUM 9.3 mg/dL (8.5-10.1)
[2022-09-22 09:20] LABS: ALBUMIN 3.2 g/dl (3.4-5.0); BLOOD UREA NITROGEN 18.6 mg/dL (7-18); MAGNESIUM 2.1 mg/dL (1.8-2.4)
[2022-09-22 09:24] LABS: BILIRUBIN,TOTAL 0.7 mg/dL (0.2-1); TOT PROT 6.6 g/dl (6.4-8.2)
[2022-09-22] MEDS: ENOXAPARIN NA (PORCINE) 40 MG/0.4 ML DISP.SYRIN SQ SCH (09:25)
[2022-09-22] MEDS: ASPIRIN COATED 81 MG TABLET.EC PO SCH (09:25)
[2022-09-22] MEDS: LIDOCAINE 5% TOPICAL PATCH TP SCH (09:26)
[2022-09-22] MEDS: TIMOLOL 0.5% OPHTHALMIC SOL 5 ML BOTTLE OD SCH (09:26)
[2022-09-22] MEDS: POLYETHYLENE GLYCOL (HEALTHYLAX) 3350 17 GM PACKET PO SCH ×2 (09:38→22:14)
[2022-09-22] MEDS: FUROSEMIDE 20 MG TABLET (FP) PO SCH (10:46)
[2022-09-22] MEDS: DOCUSATE SODIUM 100 MG CAPSULE (FP) PO SCH (22:13)
[2022-09-22] MEDS: ROSUVASTATIN CA 10 MG TABLET PO SCH (22:14)
[2022-09-23] MEDS: ACETAMINOPHEN 500 MG TABLET (FP) PO SCH ×4 (00:40→18:24)
[2022-09-23] MEDS: INSULIN SLIDING SCALE (NOVOLOG) 1 VIAL SQ SCH ×4 (06:14→23:46)
[2022-09-23] MEDS: GABAPENTIN 400 MG CAPSULE PO SCH ×3 (06:14→23:30)
[2022-09-23 09:27] LABS: BASO % 0.6 % (0-2.0); EOS % 5.8 % (0-4.5); MCH 31.6 pg (25.7-33.7); MCHC 32.6 g/dl (32.0-36.0); MEAN CELL VOLUME 97.1 fl (80-96); MONO % 11.8 % (3.8-10.2); NEUT % 52.8 % (42.8-82.8); PLATELET COUNT 152 10^3/uL (134-434); RBC 4.11 M/mm3 (3.60-5.2); WHITE BLOOD COUNT 6.4 K/mm3 (4.0-10.0)
[2022-09-23] MEDS: ASPIRIN COATED 81 MG TABLET.EC PO SCH (09:41)
[2022-09-23] MEDS: ENOXAPARIN NA (PORCINE) 40 MG/0.4 ML DISP.SYRIN SQ SCH (09:42)
[2022-09-23] MEDS: POLYETHYLENE GLYCOL (HEALTHYLAX) 3350 17 GM PACKET PO SCH ×2 (09:42→23:30)
[2022-09-23] MEDS: LIDOCAINE 5% TOPICAL PATCH TP SCH (09:42)
[2022-09-23] MEDS: TIMOLOL 0.5% OPHTHALMIC SOL 5 ML BOTTLE OD SCH (09:43)
[2022-09-23 09:51] LABS: POTASSIUM 4.5 mmol/L (3.5-5.1)
[2022-09-23 09:54] LABS: ALBUMIN 3.2 g/dl (3.4-5.0); BLOOD UREA NITROGEN 18.3 mg/dL (7-18); CALCIUM 9.6 mg/dL (8.5-10.1); MAGNESIUM 2.1 mg/dL (1.8-2.4)
[2022-09-23 09:59] LABS: BILIRUBIN,TOTAL 0.3 mg/dL (0.2-1); TOT PROT 6.3 g/dl (6.4-8.2)
[2022-09-23] MEDS: FUROSEMIDE 20 MG TABLET (FP) PO SCH (11:22)
[2022-09-23] MEDS: ROSUVASTATIN CA 10 MG TABLET PO SCH (23:30)
[2022-09-23] MEDS: DOCUSATE SODIUM 100 MG CAPSULE (FP) PO SCH (23:30)
[2022-09-23] MEDS: LIDOCAINE PATCH REMOVAL MC SCH (23:30)
[2022-09-24] MEDS: ACETAMINOPHEN 500 MG TABLET (FP) PO SCH ×4 (01:04→20:13)
[2022-09-24] MEDS: GABAPENTIN 400 MG CAPSULE PO SCH ×3 (06:21→22:26)
[2022-09-24] MEDS: INSULIN SLIDING SCALE (NOVOLOG) 1 VIAL SQ SCH ×4 (06:28→22:38)
[2022-09-24 08:57] LABS: BASO % 0.6 % (0-2.0); EOS % 5.7 % (0-4.5); HEMATOCRIT 38.4 % (32.4-45.2); HEMOGLOBIN 12.7 GM/dL (10.7-15.3); LYMPH % 31.8 % (8-40); MCH 32.1 pg (25.7-33.7); MCHC 33.1 g/dl (32.0-36.0); MEAN CELL VOLUME 97.1 fl (80-96); MEAN PLT VOLUME 9.7 fl (7.5-11.1); MONO % 13.1 % (3.8-10.2); NEUT % 48.8 % (42.8-82.8); PLATELET COUNT 143 10^3/uL (134-434); RBC 3.95 M/mm3 (3.60-5.2); WHITE BLOOD COUNT 5.9 K/mm3 (4.0-10.0)
[2022-09-24 09:13] LABS: POTASSIUM 4.8 mmol/L (3.5-5.1)
[2022-09-24 09:18] LABS: CALCIUM 9.5 mg/dL (8.5-10.1)
[2022-09-24 09:19] LABS: ALBUMIN 3.1 g/dl (3.4-5.0); BLOOD UREA NITROGEN 23.2 mg/dL (7-18); MAGNESIUM 2.1 mg/dL (1.8-2.4)
[2022-09-24 09:22] LABS: CREATININE 1.1 mg/dL (0.55-1.3)
[2022-09-24 09:24] LABS: BILIRUBIN,TOTAL 0.4 mg/dL (0.2-1); TOT PROT 6.2 g/dl (6.4-8.2)
[2022-09-24] MEDS: LIDOCAINE 5% TOPICAL PATCH TP SCH (09:59)
[2022-09-24] MEDS: ENOXAPARIN NA (PORCINE) 40 MG/0.4 ML DISP.SYRIN SQ SCH (09:59)
[2022-09-24] MEDS: ASPIRIN COATED 81 MG TABLET.EC PO SCH (09:59)
[2022-09-24] MEDS: FUROSEMIDE 20 MG TABLET (FP) PO SCH ×2 (09:59→10:25)
[2022-09-24] MEDS: TIMOLOL 0.5% OPHTHALMIC SOL 5 ML BOTTLE OD SCH (10:00)
[2022-09-24] MEDS: POLYETHYLENE GLYCOL (HEALTHYLAX) 3350 17 GM PACKET PO SCH ×2 (10:00→22:26)
[2022-09-24] MEDS: ARTIFICIAL TEARS (POLYVINYL ALCOHOL) OPTH DROPS OU PRN (10:07)
[2022-09-24] MEDS: ROSUVASTATIN CA 10 MG TABLET PO SCH (22:26)
[2022-09-24] MEDS: LIDOCAINE PATCH REMOVAL MC SCH (22:26)
[2022-09-24] MEDS: DOCUSATE SODIUM 100 MG CAPSULE (FP) PO SCH (22:26)
[2022-09-24] MEDS: ACETAMINOPHEN 325 MG TABLET (FP) PO PRN (22:31)
[2022-09-24] MEDS ORDERED: INSULIN (NOVOLOG) ASPART 100 UNITS/ML 10ML VIAL ONE (22:38)
[2022-09-25] MEDS: ACETAMINOPHEN 500 MG TABLET (FP) PO SCH ×4 (01:49→18:35)
[2022-09-25] MEDS: GABAPENTIN 400 MG CAPSULE PO SCH ×2 (05:57→14:37)
[2022-09-25] MEDS: INSULIN SLIDING SCALE (NOVOLOG) 1 VIAL SQ SCH ×4 (06:16→22:13)
[2022-09-25] MEDS: ASPIRIN COATED 81 MG TABLET.EC PO SCH (10:19)
[2022-09-25] MEDS: ENOXAPARIN NA (PORCINE) 40 MG/0.4 ML DISP.SYRIN SQ SCH (10:19)
[2022-09-25] MEDS: FUROSEMIDE 20 MG TABLET (FP) PO SCH (10:20)
[2022-09-25] MEDS: POLYETHYLENE GLYCOL (HEALTHYLAX) 3350 17 GM PACKET PO SCH ×2 (10:20→22:12)
[2022-09-25] MEDS: LIDOCAINE 5% TOPICAL PATCH TP SCH (10:20)
[2022-09-25] MEDS: TIMOLOL 0.5% OPHTHALMIC SOL 5 ML BOTTLE OD SCH (10:23)
[2022-09-25] MEDS: DOCUSATE SODIUM 100 MG CAPSULE (FP) PO SCH (22:11)
[2022-09-25] MEDS: GABAPENTIN 300 MG CAPSULE PO SCH (22:12)
[2022-09-25] MEDS: LIDOCAINE PATCH REMOVAL MC SCH (22:12)
[2022-09-25] MEDS: ROSUVASTATIN CA 10 MG TABLET PO SCH (22:12)
[2022-09-26] MEDS: ACETAMINOPHEN 500 MG TABLET (FP) PO SCH ×4 (01:44→18:03)
[2022-09-26] MEDS: GABAPENTIN 300 MG CAPSULE PO SCH ×3 (07:01→22:01)
[2022-09-26] MEDS: INSULIN SLIDING SCALE (NOVOLOG) 1 VIAL SQ SCH ×4 (08:24→21:59)
[2022-09-26] MEDS: ASPIRIN COATED 81 MG TABLET.EC PO SCH (09:33)
[2022-09-26] MEDS: LIDOCAINE 5% TOPICAL PATCH TP SCH (09:33)
[2022-09-26] MEDS: ENOXAPARIN NA (PORCINE) 40 MG/0.4 ML DISP.SYRIN SQ SCH (09:33)
[2022-09-26] MEDS: POLYETHYLENE GLYCOL (HEALTHYLAX) 3350 17 GM PACKET PO SCH ×2 (09:34→22:01)
[2022-09-26] MEDS: TIMOLOL 0.5% OPHTHALMIC SOL 5 ML BOTTLE OD SCH (09:34)
[2022-09-26] MEDS: FUROSEMIDE 20 MG TABLET (FP) PO SCH (09:37)
[2022-09-26] MEDS: ARTIFICIAL TEARS (POLYVINYL ALCOHOL) OPTH DROPS OU PRN (09:41)
[2022-09-26] MEDS ORDERED: INSULIN (NOVOLOG) ASPART 100 UNITS/ML 10ML VIAL ONE (11:48)
[2022-09-26] MEDS: ROSUVASTATIN CA 10 MG TABLET PO SCH (22:01)
[2022-09-26] MEDS: LIDOCAINE PATCH REMOVAL MC SCH (22:01)
[2022-09-26] MEDS: DOCUSATE SODIUM 100 MG CAPSULE (FP) PO SCH (22:01)
[2022-09-27] MEDS: ACETAMINOPHEN 500 MG TABLET (FP) PO SCH ×2 (00:16→05:35)
[2022-09-27] MEDS: GABAPENTIN 300 MG CAPSULE PO SCH ×3 (05:35→21:22)
[2022-09-27] MEDS: INSULIN SLIDING SCALE (NOVOLOG) 1 VIAL SQ SCH ×4 (06:10→21:24)
[2022-09-27] MEDS: ENOXAPARIN NA (PORCINE) 40 MG/0.4 ML DISP.SYRIN SQ SCH (10:01)
[2022-09-27] MEDS: FUROSEMIDE 20 MG TABLET (FP) PO SCH (10:02)
[2022-09-27] MEDS: ASPIRIN COATED 81 MG TABLET.EC PO SCH (10:02)
[2022-09-27] MEDS: LIDOCAINE 5% TOPICAL PATCH TP SCH (10:02)
[2022-09-27] MEDS: POLYETHYLENE GLYCOL (HEALTHYLAX) 3350 17 GM PACKET PO SCH ×2 (10:07→21:24)
[2022-09-27] MEDS: TIMOLOL 0.5% OPHTHALMIC SOL 5 ML BOTTLE OD SCH (10:15)
[2022-09-27 15:36] VITALS: RESP 18
[2022-09-27] MEDS: ROSUVASTATIN CA 10 MG TABLET PO SCH (21:21)
[2022-09-27] MEDS: ACETAMINOPHEN 325 MG TABLET (FP) PO PRN (21:21)
[2022-09-27] MEDS: DOCUSATE SODIUM 100 MG CAPSULE (FP) PO SCH (21:21)
[2022-09-27] MEDS: LIDOCAINE PATCH REMOVAL MC SCH (21:24)
[2022-09-28] MEDS: GABAPENTIN 300 MG CAPSULE PO SCH ×2 (05:57→15:42)
[2022-09-28] MEDS: INSULIN SLIDING SCALE (NOVOLOG) 1 VIAL SQ SCH ×3 (06:21→18:11)
[2022-09-28] MEDS: FUROSEMIDE 20 MG TABLET (FP) PO SCH (10:39)
[2022-09-28] MEDS: ASPIRIN COATED 81 MG TABLET.EC PO SCH (10:39)
[2022-09-28] MEDS: POLYETHYLENE GLYCOL (HEALTHYLAX) 3350 17 GM PACKET PO SCH (10:39)
[2022-09-28] MEDS: ENOXAPARIN NA (PORCINE) 40 MG/0.4 ML DISP.SYRIN SQ SCH (10:39)
[2022-09-28] MEDS: LIDOCAINE 5% TOPICAL PATCH TP SCH (10:39)
[2022-09-28] MEDS: TIMOLOL 0.5% OPHTHALMIC SOL 5 ML BOTTLE OD SCH (10:44)
[2022-09-28] MEDS ORDERED: INSULIN (NOVOLOG) ASPART 100 UNITS/ML 10ML VIAL ONE (11:21)
[2022-09-28 15:42] VITALS: BP 107/65; PULSE 89; TEMP 98.1
== END 2022-09-28 18:37 ==
LOC: JER 09:01 → JERBED 15:31 → J8W 16:17
PROVIDERS: ADMIT Internal Medicine; ATTEND Nurse Practitioner Family
PROC: 3E033NZ Introduction of Analgesics, Hypnotics, Sedatives into Peripheral Vein, Percutaneous Approach (ICD-10-PCS; principal; 2022-09-17)
PROC: 3E023GC Introduction of Other Therapeutic Substance into Muscle, Percutaneous Approach (ICD-10-PCS; 2022-09-17)
DX: M62.81 Muscle weakness (generalized) (principal); E11.9 Type 2 diabetes mellitus without complications; Z29.8 Encounter for other specified prophylactic measures; I10 Essential (primary) hypertension; E78.5 Hyperlipidemia, unspecified; Z86.718 Personal history of other venous thrombosis and embolism; I87.2 Venous insufficiency (chronic) (peripheral); T85.898A Other specified complication of other internal prosthetic devices, implants and grafts, initial encounter; M54.50 Low back pain, unspecified; G89.29 Other chronic pain; S39.92XA Unspecified injury of lower back, initial encounter; X58.XXXA Exposure to other specified factors, initial encounter; Y93.89 Activity, other specified; Y92.89 Other specified places as the place of occurrence of the external cause
CPT/HCPCS: 36415; 70450-TC; 71045-TC-FY; 72125-TC; 72128-TC; 72131-TC; 72192-TC; 73562-TC-LT-FY; 80053; 81003; 82550; 82962; 83036; 83735; 84100; 84484; 85025; 85610; 85730; 87086; 87635; 93005; 93010; 97116-GP; 97161-GP; 99285-25; G0378

== ENCOUNTER 2023-06-11 17:54 | Inpatient (IN) | payer OTHER ==
[2023-06-11 19:33] LABS: BASO % 0.9 % (0-2.0); EOS % 3.2 % (0-4.5); HEMATOCRIT 41.6 % (32.4-45.2); LYMPH % 26.4 % (8-40); MCH 32.9 pg (25.7-33.7); MCHC 33.7 g/dl (32.0-36.0); MEAN CELL VOLUME 97.6 fl (80-96); MEAN PLT VOLUME 9.4 fl (7.5-11.1); MONO % 10.7 % (3.8-10.2); NEUT % 58.8 % (42.8-82.8); PLATELET COUNT 133 10^3/uL (134-434); RBC 4.26 M/mm3 (3.60-5.2); RDW 15.3 % (11.6-15.6); WHITE BLOOD COUNT 6.7 K/mm3 (4.0-10.0)
[2023-06-11 19:55] LABS: POTASSIUM 4.4 mmol/L (3.5-5.1)
[2023-06-11 19:57] LABS: BLOOD UREA NITROGEN 20.1 mg/dL (7-18); CALCIUM 9.8 mg/dL (8.5-10.1)
[2023-06-11 19:58] LABS: ALBUMIN 3.7 g/dl (3.4-5.0)
[2023-06-11 20:01] LABS: CREATININE 1.4 mg/dL (0.55-1.3)
[2023-06-11 20:02] LABS: BILIRUBIN,TOTAL 0.6 mg/dL (0.2-1); TOT PROT 7.6 g/dl (6.4-8.2)
[2023-06-11 23:46] LABS: EPI CELLS 18 /uL (0-25.1); HYALINE CASTS 0 /uL (0-3.1); PH,URINE 5.5 (5.0-8.0); URINE APPEARANCE CLEAR; URINE BACTERIA 149 /uL (0-1359); URINE BILIRUBIN NEGATIVE (NEGATIVE); URINE COLOR YELLOW; URINE GLUCOSE (UA) NEGATIVE (NEGATIVE); URINE KETONE TRACE (NEGATIVE); URINE LEUK ESTERASE 2+ (NEGATIVE); URINE NITRITE NEGATIVE (NEGATIVE); URINE PROTEIN NEGATIVE (NEGATIVE); URINE RBC 12 /uL (0-23.9); URINE WBC 188 /uL (0-25.8)
[2023-06-12] MEDS ORDERED: PIPERACILLIN/TAZOB 3.375 GM 3.375 GM/50 ML BAG IVPB ONE (00:13)
[2023-06-12] MEDS: PIPERACILLIN/TAZOB 3.375 GM 3.375 GM in DEXTROSE 5%-WATER - 50 ML IVPB ONE (00:23)
[2023-06-12 05:01] VITALS: BMI 26.6
[2023-06-12] MEDS: INSULIN ASPART SLIDING SCALE (NOVOLOG) 1 VIAL SQ SCH (07:00)
[2023-06-12] MEDS: SODIUM CHLORIDE 1,000 ML IV SCH (08:16)
[2023-06-12 08:20] LABS: BASO % 0.4 % (0-2.0); EOS % 0.9 % (0-4.5); HEMATOCRIT 43.3 % (32.4-45.2); HEMOGLOBIN 14.2 GM/dL (10.7-15.3); LYMPH % 19.1 % (8-40); MCH 32.2 pg (25.7-33.7); MCHC 32.8 g/dl (32.0-36.0); MEAN CELL VOLUME 98.3 fl (80-96); MEAN PLT VOLUME 9.5 fl (7.5-11.1); MONO % 6.7 % (3.8-10.2); NEUT % 72.9 % (42.8-82.8); PLATELET COUNT 127 10^3/uL (134-434); RDW 14.8 % (11.6-15.6)
[2023-06-12 08:24] LABS: POTASSIUM 4.5 mmol/L (3.5-5.1)
[2023-06-12 08:26] LABS: CALCIUM 9.7 mg/dL (8.5-10.1)
[2023-06-12 08:27] LABS: ALBUMIN 3.7 g/dl (3.4-5.0)
[2023-06-12 08:30] LABS: PHOSPHOROUS 2.6 mg/dL (2.5-4.9)
[2023-06-12 08:31] LABS: BILIRUBIN,TOTAL 0.8 mg/dL (0.2-1); TOT PROT 7.5 g/dl (6.4-8.2)
[2023-06-12 08:44] LABS: BLOOD UREA NITROGEN 17.8 mg/dL (7-18); CREATININE 1.2 mg/dL (0.55-1.3)
[2023-06-12] MEDS ORDERED: PIPERACILLIN/TAZOB 2.25 GM 2.25 GM in DEXTROSE 5%-WATER - 50 ML IVPB SCH (09:00)
[2023-06-12] MEDS: PIPERACILLIN/TAZOB 2.25 GM 2.25 GM in DEXTROSE 5%-WATER - 50 ML IVPB SCH (09:33)
[2023-06-12] MEDS: DULoxetine HCL 30 MG CAPSULE.DR PO SCH (09:45)
[2023-06-12] MEDS: ARTIFICIAL TEARS OPHTHALMIC DROPS OU SCH (09:45)
[2023-06-12] MEDS: LIDOCAINE 4% PATCH TP SCH (09:46)
[2023-06-12] MEDS: ASPIRIN COATED 81 MG TABLET.EC PO SCH (09:47)
[2023-06-12] MEDS: HEPARIN NA (PORCINE) 5,000 UNITS/ML 1ML VIAL SQ SCH (09:47)
[2023-06-12] MEDS: ASCORBIC ACID 500 MG TABLET (FP) PO SCH (09:48)
[2023-06-12] MEDS: GABAPENTIN 300 MG CAPSULE PO SCH (09:48)
[2023-06-12] MEDS ORDERED: CAPSAICIN 0.025% TP SCH (10:00)
[2023-06-12] MEDS: TIMOLOL 0.5% OPHTHALMIC SOL 5 ML BOTTLE OD SCH (12:15)
[2023-06-12] MEDS ORDERED: PATIENT'S OWN MEDICATION (NON-FORMULARY) (Lidocaine Patch Removal 1 EACH Each) MC SCH (22:00)
[2023-06-12] MEDS: MELATONIN 1 MG TABLET PO SCH (22:15)
[2023-06-12] MEDS: POLYETHYLENE GLYCOL (HEALTHYLAX) 3350 17 GM PACKET PO SCH (22:15)
[2023-06-12] MEDS: ROSUVASTATIN CA 5 MG TABLET PO SCH (22:16)
[2023-06-12] MEDS: QUEtiapine FUMARATE 25 MG TABLET PO SCH (22:16)
[2023-06-12] MEDS: DOCUSATE SODIUM 100 MG CAPSULE (FP) PO SCH (22:16)
[2023-06-12] MEDS: LIDOCAINE PATCH REMOVAL MC SCH (22:17)
[2023-06-13] MEDS: PIPERACILLIN/TAZOB 2.25 GM 2.25 GM in DEXTROSE 5%-WATER - 50 ML IVPB SCH (03:38)
[2023-06-13] MEDS ORDERED: INSULIN ASPART SLIDING SCALE (NOVOLOG) 1 VIAL SQ ONE (17:11)
[2023-06-13] MEDS: AMPICILLIN NA/SULBACTAM NA 1.5 GM in SODIUM CHLORIDE 100 ML IVPB SCH (17:56)
[2023-06-13] MEDS ORDERED: AMPICILLIN NA/SULBACTAM NA 1.5 GM in SODIUM CHLORIDE 100 ML IVPB SCH (18:00)
[2023-06-13] MEDS: QUEtiapine FUMARATE 25 MG TABLET PO SCH (22:50)
[2023-06-14 11:45] LABS: BASO % 0.5 % (0-2.0); EOS % 5.3 % (0-4.5); HEMATOCRIT 39.6 % (32.4-45.2); HEMOGLOBIN 13.2 GM/dL (10.7-15.3); LYMPH % 18.6 % (8-40); MCH 32.4 pg (25.7-33.7); MCHC 33.2 g/dl (32.0-36.0); MEAN CELL VOLUME 97.6 fl (80-96); MEAN PLT VOLUME 9.7 fl (7.5-11.1); MONO % 9.3 % (3.8-10.2); NEUT % 66.3 % (42.8-82.8); PLATELET COUNT 109 10^3/uL (134-434); RBC 4.05 M/mm3 (3.60-5.2); RDW 14.9 % (11.6-15.6); WHITE BLOOD COUNT 5.4 K/mm3 (4.0-10.0)
[2023-06-14 12:12] LABS: POTASSIUM 4.2 mmol/L (3.5-5.1)
[2023-06-14 12:14] LABS: CALCIUM 8.7 mg/dL (8.5-10.1)
[2023-06-14 12:15] LABS: BLOOD UREA NITROGEN 17.2 mg/dL (7-18)
[2023-06-14 12:19] LABS: BILIRUBIN,TOTAL 0.7 mg/dL (0.2-1); TOT PROT 6.4 g/dl (6.4-8.2)
[2023-06-15 08:53] LABS: BASO % 0.5 % (0-2.0); EOS % 6.7 % (0-4.5); HEMATOCRIT 38.9 % (32.4-45.2); LYMPH % 19.9 % (8-40); MCH 32.7 pg (25.7-33.7); MCHC 33.4 g/dl (32.0-36.0); MEAN CELL VOLUME 98.1 fl (80-96); MEAN PLT VOLUME 9.8 fl (7.5-11.1); MONO % 11.3 % (3.8-10.2); NEUT % 61.6 % (42.8-82.8); PLATELET COUNT 109 10^3/uL (134-434); RBC 3.97 M/mm3 (3.60-5.2); RDW 14.4 % (11.6-15.6); WHITE BLOOD COUNT 5.3 K/mm3 (4.0-10.0)
[2023-06-15 09:11] LABS: POTASSIUM 4.2 mmol/L (3.5-5.1)
[2023-06-15 09:14] LABS: BLOOD UREA NITROGEN 14.6 mg/dL (7-18); CALCIUM 8.6 mg/dL (8.5-10.1)
[2023-06-15 09:18] LABS: BILIRUBIN,TOTAL 0.8 mg/dL (0.2-1)
[2023-06-15 09:19] LABS: TOT PROT 6.5 g/dl (6.4-8.2)
[2023-06-15] MEDS: DULoxetine HCL 30 MG CAPSULE.DR PO SCH ×2 (12:37→12:43)
[2023-06-15] MEDS: ACETAMINOPHEN 325 MG TABLET (FP) PO PRN (21:34)
[2023-06-16] MEDS: QUEtiapine FUMARATE 25 MG TABLET PO SCH (10:58)
[2023-06-19 08:56] LABS: BASO % 0.4 % (0-2.0); EOS % 3.8 % (0-4.5); HEMATOCRIT 40.3 % (32.4-45.2); HEMOGLOBIN 13.1 GM/dL (10.7-15.3); LYMPH % 31.8 % (8-40); MCH 32.2 pg (25.7-33.7); MCHC 32.5 g/dl (32.0-36.0); MEAN CELL VOLUME 98.9 fl (80-96); MEAN PLT VOLUME 9.4 fl (7.5-11.1); PLATELET COUNT 131 10^3/uL (134-434); RBC 4.08 M/mm3 (3.60-5.2); RDW 14.9 % (11.6-15.6); WHITE BLOOD COUNT 6.2 K/mm3 (4.0-10.0)
[2023-06-19 09:18] LABS: POTASSIUM 4.2 mmol/L (3.5-5.1)
[2023-06-19 09:20] LABS: BLOOD UREA NITROGEN 23.6 mg/dL (7-18)
[2023-06-19 09:23] LABS: ALBUMIN 3.1 g/dl (3.4-5.0); CALCIUM 9.2 mg/dL (8.5-10.1)
[2023-06-19 09:24] LABS: BILIRUBIN,TOTAL 0.4 mg/dL (0.2-1)
[2023-06-19 09:28] LABS: TOT PROT 6.6 g/dl (6.4-8.2)
[2023-06-21] MEDS: SENNOSIDES 8.6MG TABLET (FP) PO PRN (14:03)
[2023-06-21] MEDS: TRIMETHOBENZAMIDE HCL 200MG/2ML INJ IM ONE (18:10)
[2023-06-21 21:09] VITALS: RESP 18
[2023-06-23 14:24] VITALS: BP 108/59; PULSE 99; TEMP 98.3
== END 2023-06-23 16:05 | disposition home or self-care (01) | DRG 880 ==
LOC: JER 17:54 → JERBED 06-12 00:54 → J6S 06-12 04:03
PROVIDERS: ADMIT Internal Medicine; ATTEND Internal Medicine
DX: R44.0 Auditory hallucinations (principal); N39.0 Urinary tract infection, site not specified; N17.9 Acute kidney failure, unspecified; F03.911 Unspecified dementia, unspecified severity, with agitation; G93.40 Encephalopathy, unspecified; I10 Essential (primary) hypertension; E11.65 Type 2 diabetes mellitus with hyperglycemia; D69.6 Thrombocytopenia, unspecified; E78.5 Hyperlipidemia, unspecified; I87.2 Venous insufficiency (chronic) (peripheral); H26.9 Unspecified cataract; T43.3X5A Adverse effect of phenothiazine antipsychotics and neuroleptics, initial encounter; X58.XXXA Exposure to other specified factors, initial encounter; Y93.9 Activity, unspecified; Y92.9 Unspecified place or not applicable; K59.00 Constipation, unspecified; F32.A Depression, unspecified
CPT/HCPCS: 0241U-QW; 36415; 70450-TC; 70551-TC; 71045-TC-FY; 80053; 81003; 82607; 82746; 82962; 83036; 83735; 84100; 84436; 84443; 85025; 86593; 86780; 87086; 93005; 93010; 97116-GP; 97162-GP; 99285-25; J1644

== ENCOUNTER 2023-07-05 15:27 | Inpatient (IN) | payer OTHER ==
[2023-07-05 16:08] VITALS: BMI 28.7
[2023-07-05 21:46] LABS: BASO % 0.5 % (0-2.0); EOS % 0.6 % (0-4.5); HEMATOCRIT 22.6 % (32.4-45.2); HEMOGLOBIN 7.4 GM/dL (10.7-15.3); LYMPH % 19.7 % (8-40); MCH 32.2 pg (25.7-33.7); MCHC 32.6 g/dl (32.0-36.0); MEAN CELL VOLUME 98.5 fl (80-96); MEAN PLT VOLUME 9.5 fl (7.5-11.1); MONO % 7.1 % (3.8-10.2); NEUT % 72.1 % (42.8-82.8); PLATELET COUNT 78 10^3/uL (134-434); RBC 2.29 M/mm3 (3.60-5.2); RDW 15.2 % (11.6-15.6); WHITE BLOOD COUNT 9.4 K/mm3 (4.0-10.0)
[2023-07-05 22:05] LABS: CALCIUM 8.2 mg/dL (8.5-10.1)
[2023-07-05 22:06] LABS: ALBUMIN 2.8 g/dl (3.4-5.0)
[2023-07-05 22:08] LABS: CREATININE 1.1 mg/dL (0.55-1.3)
[2023-07-05 22:10] LABS: BILIRUBIN,TOTAL 0.3 mg/dL (0.2-1); TOT PROT 5.4 g/dl (6.4-8.2)
[2023-07-05 22:56] LABS: EPI CELLS 12 /uL (0-25.1); HYALINE CASTS 0 /uL (0-3.1); URINE APPEARANCE CLEAR; URINE BACTERIA 53 /uL (0-1359); URINE BILIRUBIN NEGATIVE (NEGATIVE); URINE COLOR YELLOW; URINE GLUCOSE (UA) NEGATIVE (NEGATIVE); URINE KETONE NEGATIVE (NEGATIVE); URINE LEUK ESTERASE TRACE (NEGATIVE); URINE NITRITE NEGATIVE (NEGATIVE); URINE PROTEIN NEGATIVE (NEGATIVE); URINE RBC 9 /uL (0-23.9); URINE UROBILINOGEN 0.2 mg/dL (0.2-1.0); URINE WBC 8 /uL (0-25.8)
[2023-07-05] MEDS: SODIUM CHLORIDE 0.9% 500 ML INFUS.BAG IV ONE (23:14)
[2023-07-05] MEDS ORDERED: PANTOPRAZOLE SODIUM 40 MG VIAL ONE (23:23)
[2023-07-05] MEDS: PANTOPRAZOLE SODIUM 40 MG VIAL IVPUSH ONE (23:38)
[2023-07-05 23:44] LABS: BASO % 0.3 % (0-2.0); EOS % 0.9 % (0-4.5); LYMPH % 26.2 % (8-40); MCH 32.8 pg (25.7-33.7); MCHC 33.7 g/dl (32.0-36.0); MEAN CELL VOLUME 97.5 fl (80-96); MEAN PLT VOLUME 9.1 fl (7.5-11.1); MONO % 8.9 % (3.8-10.2); NEUT % 63.7 % (42.8-82.8); PLATELET COUNT 68 10^3/uL (134-434); RBC 2.05 M/mm3 (3.60-5.2); RDW 15.3 % (11.6-15.6); WHITE BLOOD COUNT 9.6 K/mm3 (4.0-10.0)
[2023-07-05 23:47] LABS: HEMOGLOBIN 6.7 GM/dL (10.7-15.3)
[2023-07-06] MEDS: SODIUM CHLORIDE 1,000 ML IV STA (01:34)
[2023-07-06] MEDS: ACETAMINOPHEN 1000 MG/100 ML BAG IVPB ONE (02:20)
[2023-07-06] MEDS ORDERED: ACETAMINOPHEN 1000 MG/100 ML BAG IVPB PRN (02:37)
[2023-07-06] MEDS ORDERED: ONDANSETRON 4 MG/2 ML VIAL IVPUSH PRN (02:38)
[2023-07-06] MEDS: INSULIN ASPART SLIDING SCALE (NOVOLOG) 1 VIAL SQ SCH (06:41)
[2023-07-06] MEDS: PANTOPRAZOLE SODIUM 40 MG VIAL IVPUSH SCH (09:20)
[2023-07-06] MEDS: TIMOLOL 0.5% OPHTHALMIC SOL 5 ML BOTTLE OD SCH (09:21)
[2023-07-06] MEDS: LIDOCAINE 4% PATCH TP SCH (09:24)
[2023-07-06] MEDS ORDERED: ENOXAPARIN NA (PORCINE) 40 MG/0.4 ML DISP.SYRIN SQ SCH (10:00)
[2023-07-06 11:38] LABS: RETICULOCYTES 2.37 % (0.5-1.5)
[2023-07-06 13:14] LABS: BASO % 0.4 % (0-2.0); EOS % 2.7 % (0-4.5); HEMATOCRIT 22.3 % (32.4-45.2); HEMOGLOBIN 7.4 GM/dL (10.7-15.3); LYMPH % 16.4 % (8-40); MCH 32.4 pg (25.7-33.7); MCHC 33.4 g/dl (32.0-36.0); MEAN PLT VOLUME 9.7 fl (7.5-11.1); MONO % 8.9 % (3.8-10.2); NEUT % 71.6 % (42.8-82.8); PLATELET COUNT 67 10^3/uL (134-434); RBC 2.29 M/mm3 (3.60-5.2); RDW 14.6 % (11.6-15.6); RETICULOCYTES 2.63 % (0.5-1.5); WHITE BLOOD COUNT 8.3 K/mm3 (4.0-10.0)
[2023-07-06 13:24] LABS: INR 1.19 (0.83-1.09); PROTHROMBIN TIME (PATIENT) 13.8 SEC (9.7-13.0)
[2023-07-06 13:45] LABS: POTASSIUM 4.4 mmol/L (3.5-5.1)
[2023-07-06 13:47] LABS: BLOOD UREA NITROGEN 33.1 mg/dL (7-18); CALCIUM 8.1 mg/dL (8.5-10.1); MAGNESIUM 2.1 mg/dL (1.8-2.4)
[2023-07-06 13:48] LABS: ALBUMIN 2.6 g/dl (3.4-5.0)
[2023-07-06 13:50] LABS: PHOSPHOROUS 2.7 mg/dL (2.5-4.9)
[2023-07-06] MEDS: EPINEPHrine 1:10,000 (P-F SYR) 1 MG/10 ML DISP.SYRIN IVPUSH ONE (14:49)
[2023-07-06] MEDS ORDERED: EPINEPHrine 1:10,000 (P-F SYR) 1 MG/10 ML DISP.SYRIN ONE (14:58)
[2023-07-06] MEDS: PANTOPRAZOLE SODIUM 80 MG in SODIUM CHLORIDE 100 ML IVPB SCH (18:27)
[2023-07-06] MEDS: MAG HYDROX/AL HYDROX/SIMETH 30 ML UNIT-DOSE CUP PO SCH (18:27)
[2023-07-06] MEDS: IRON SUCROSE INJECTION 200 MG in SODIUM CHLORIDE 100 ML IVPB ONE (20:28)
[2023-07-06] MEDS: LIDOCAINE PATCH REMOVAL MC SCH (20:50)
[2023-07-06] MEDS: ROSUVASTATIN CA 5 MG TABLET PO SCH (21:08)
[2023-07-06] MEDS ORDERED: LIDOCAINE PATCH REMOVAL MC SCH (22:00)
[2023-07-07 08:44] LABS: BASO % 0.5 % (0-2.0); LYMPH % 20.1 % (8-40); MCH 33.3 pg (25.7-33.7); MCHC 34.2 g/dl (32.0-36.0); MEAN CELL VOLUME 97.4 fl (80-96); MEAN PLT VOLUME 9.2 fl (7.5-11.1); MONO % 8.7 % (3.8-10.2); NEUT % 67.7 % (42.8-82.8); PLATELET COUNT 70 10^3/uL (134-434); RBC 2.06 M/mm3 (3.60-5.2); RDW 14.9 % (11.6-15.6); WHITE BLOOD COUNT 7.6 K/mm3 (4.0-10.0)
[2023-07-07 08:51] LABS: ALBUMIN 2.4 g/dl (3.4-5.0); BLOOD UREA NITROGEN 22.9 mg/dL (7-18); MAGNESIUM 2.2 mg/dL (1.8-2.4)
[2023-07-07 08:53] LABS: PHOSPHOROUS 2.7 mg/dL (2.5-4.9)
[2023-07-07 08:54] LABS: BILIRUBIN,TOTAL 0.5 mg/dL (0.2-1); TOT PROT 4.8 g/dl (6.4-8.2)
[2023-07-07 08:56] LABS: HEMOGLOBIN 6.9 GM/dL (10.7-15.3)
[2023-07-07] MEDS: FUROSEMIDE 40 MG/4 ML INJECTABLE VIAL IVPUSH SCH (13:26)
[2023-07-07] MEDS ORDERED: ACETAMINOPHEN 500 MG TABLET (FP) PO PRN (18:15)
[2023-07-07 19:33] LABS: BASO % 0.5 % (0-2.0); EOS % 2.8 % (0-4.5); HEMATOCRIT 29.2 % (32.4-45.2); HEMOGLOBIN 9.8 GM/dL (10.7-15.3); LYMPH % 15.8 % (8-40); MCH 31.7 pg (25.7-33.7); MCHC 33.5 g/dl (32.0-36.0); MEAN CELL VOLUME 94.6 fl (80-96); MEAN PLT VOLUME 9.5 fl (7.5-11.1); MONO % 9.1 % (3.8-10.2); NEUT % 71.8 % (42.8-82.8); PLATELET COUNT 69 10^3/uL (134-434); RBC 3.09 M/mm3 (3.60-5.2); RDW 16.5 % (11.6-15.6); WHITE BLOOD COUNT 8.2 K/mm3 (4.0-10.0)
[2023-07-08 07:07] LABS: BASO % 0.5 % (0-2.0); EOS % 2.7 % (0-4.5); HEMATOCRIT 27.3 % (32.4-45.2); HEMOGLOBIN 9.3 GM/dL (10.7-15.3); LYMPH % 18.9 % (8-40); MCHC 34.1 g/dl (32.0-36.0); MEAN CELL VOLUME 93.8 fl (80-96); MEAN PLT VOLUME 9.1 fl (7.5-11.1); MONO % 9.7 % (3.8-10.2); NEUT % 68.2 % (42.8-82.8); PLATELET COUNT 69 10^3/uL (134-434); RBC 2.91 M/mm3 (3.60-5.2)
[2023-07-08 07:14] LABS: POTASSIUM 3.6 mmol/L (3.5-5.1)
[2023-07-08 07:22] LABS: ALBUMIN 2.7 g/dl (3.4-5.0); BLOOD UREA NITROGEN 18.5 mg/dL (7-18); CALCIUM 7.9 mg/dL (8.5-10.1); MAGNESIUM 2.2 mg/dL (1.8-2.4)
[2023-07-08 07:25] LABS: CREATININE 0.9 mg/dL (0.55-1.3); PHOSPHOROUS 3.4 mg/dL (2.5-4.9)
[2023-07-08 07:26] LABS: BILIRUBIN,TOTAL 0.8 mg/dL (0.2-1); TOT PROT 5.4 g/dl (6.4-8.2)
[2023-07-08] MEDS: POLYETHYLENE GLYCOL (HEALTHYLAX) 3350 17 GM PACKET PO SCH (21:24)
[2023-07-08] MEDS: TETRACYCLINE 250 MG PO SCH (21:28)
[2023-07-08] MEDS: BISMUTH SUBSALICYLATE 262 MG PO SCH (21:39)
[2023-07-09 07:26] LABS: BASO % 0.5 % (0-2.0); EOS % 3.3 % (0-4.5); HEMATOCRIT 27.1 % (32.4-45.2); HEMOGLOBIN 9.2 GM/dL (10.7-15.3); LYMPH % 17.9 % (8-40); MCH 32.4 pg (25.7-33.7); MCHC 33.8 g/dl (32.0-36.0); MEAN CELL VOLUME 95.9 fl (80-96); MEAN PLT VOLUME 9.5 fl (7.5-11.1); MONO % 10.9 % (3.8-10.2); NEUT % 67.4 % (42.8-82.8); PLATELET COUNT 72 10^3/uL (134-434); RBC 2.83 M/mm3 (3.60-5.2); RDW 17.1 % (11.6-15.6); WHITE BLOOD COUNT 7.2 K/mm3 (4.0-10.0)
[2023-07-09 07:38] LABS: POTASSIUM 3.8 mmol/L (3.5-5.1)
[2023-07-09 07:45] LABS: ALBUMIN 2.6 g/dl (3.4-5.0); BLOOD UREA NITROGEN 15.1 mg/dL (7-18); CALCIUM 7.9 mg/dL (8.5-10.1); CREATININE 1.1 mg/dL (0.55-1.3)
[2023-07-09 07:46] LABS: BILIRUBIN,TOTAL 0.8 mg/dL (0.2-1)
[2023-07-09 07:47] LABS: TOT PROT 5.2 g/dl (6.4-8.2)
[2023-07-09] MEDS ORDERED: PANTOPRAZOLE 20 MG TABLET PO SCH (10:00)
[2023-07-09] MEDS: PANTOPRAZOLE 20 MG TABLET PO SCH (11:15)
[2023-07-10] MEDS: LACTATED RINGERS SOLUTION 1,000 ML/1,000 ML INFUS.BAG IV SCH (01:29)
[2023-07-10] MEDS: SODIUM CHLORIDE 250 ML IV STA (08:54)
[2023-07-10 09:18] LABS: HEMATOCRIT 26.6 % (32.4-45.2); HEMOGLOBIN 8.8 GM/dL (10.7-15.3); MCH 32.1 pg (25.7-33.7); MEAN CELL VOLUME 97.1 fl (80-96); MEAN PLT VOLUME 9.4 fl (7.5-11.1); PLATELET COUNT 65 10^3/uL (134-434); RBC 2.74 M/mm3 (3.60-5.2); RDW 16.7 % (11.6-15.6); WHITE BLOOD COUNT 8.1 K/mm3 (4.0-10.0)
[2023-07-10 09:46] LABS: POTASSIUM 4.3 mmol/L (3.5-5.1)
[2023-07-10 09:48] LABS: ALBUMIN 2.3 g/dl (3.4-5.0); CALCIUM 7.6 mg/dL (8.5-10.1)
[2023-07-10 09:49] LABS: BLOOD UREA NITROGEN 21.9 mg/dL (7-18)
[2023-07-10 09:51] LABS: CREATININE 1.2 mg/dL (0.55-1.3)
[2023-07-10 09:53] LABS: BILIRUBIN,TOTAL 0.7 mg/dL (0.2-1)
[2023-07-10] MEDS: LIDOCAINE 4% PATCH TP ONE (10:27)
[2023-07-10] MEDS: LIDOCAINE PATCH REMOVAL MC SCH (21:29)
[2023-07-11] MEDS: MIDODRINE HCL 5 MG TABLET PO SCH (09:34)
[2023-07-11] MEDS: HEPARIN INFUSION - 25,000 UNITS/500 ML INFUS.BAG IVPB SCH ×2 (14:06→14:14)
[2023-07-11 17:25] LABS: HEMATOCRIT 29.7 % (32.4-45.2); HEMOGLOBIN 9.8 GM/dL (10.7-15.3); MCH 31.8 pg (25.7-33.7); MCHC 32.9 g/dl (32.0-36.0); MEAN CELL VOLUME 96.7 fl (80-96); MEAN PLT VOLUME 9.7 fl (7.5-11.1); PLATELET COUNT 82 10^3/uL (134-434); RBC 3.07 M/mm3 (3.60-5.2); RDW 17.3 % (11.6-15.6); WHITE BLOOD COUNT 9.1 K/mm3 (4.0-10.0)
[2023-07-11 21:09] LABS: HEMATOCRIT 28.8 % (32.4-45.2); HEMOGLOBIN 9.6 GM/dL (10.7-15.3); MCHC 33.3 g/dl (32.0-36.0); MEAN PLT VOLUME 9.5 fl (7.5-11.1); PLATELET COUNT 89 10^3/uL (134-434); RDW 16.9 % (11.6-15.6)
[2023-07-11] MEDS: PANTOPRAZOLE SODIUM 40 MG VIAL IVPUSH SCH (21:29)
[2023-07-12 08:01] LABS: HEMATOCRIT 27.2 % (32.4-45.2); HEMOGLOBIN 8.9 GM/dL (10.7-15.3); MCH 31.7 pg (25.7-33.7); MCHC 32.8 g/dl (32.0-36.0); MEAN CELL VOLUME 96.5 fl (80-96); MEAN PLT VOLUME 9.6 fl (7.5-11.1); PLATELET COUNT 94 10^3/uL (134-434); RBC 2.81 M/mm3 (3.60-5.2); WHITE BLOOD COUNT 7.7 K/mm3 (4.0-10.0)
[2023-07-12 08:03] LABS: POTASSIUM 3.9 mmol/L (3.5-5.1)
[2023-07-12 09:37] LABS: ALBUMIN 2.4 g/dl (3.4-5.0); BILIRUBIN,TOTAL 0.7 mg/dL (0.2-1); BLOOD UREA NITROGEN 12.8 mg/dL (7-18); CALCIUM 8.3 mg/dL (8.5-10.1); MAGNESIUM 2.4 mg/dL (1.8-2.4); PHOSPHOROUS 2.6 mg/dL (2.5-4.9); TOT PROT 5.1 g/dl (6.4-8.2)
[2023-07-12] MEDS: TETRACYCLINE 250 MG PO SCH (13:10)
[2023-07-12] MEDS: metroNIDAZOLE 250 MG TABLET PO SCH (13:10)
[2023-07-12] MEDS: BISMUTH SUBSALICYLATE 524 MG/30 ML PO SCH (13:11)
[2023-07-12 16:40] LABS: HEMATOCRIT 28.6 % (32.4-45.2); HEMOGLOBIN 9.4 GM/dL (10.7-15.3); MEAN CELL VOLUME 96.9 fl (80-96); MEAN PLT VOLUME 9.2 fl (7.5-11.1); PLATELET COUNT 108 10^3/uL (134-434); RBC 2.95 M/mm3 (3.60-5.2); RDW 16.8 % (11.6-15.6); WHITE BLOOD COUNT 7.5 K/mm3 (4.0-10.0)
[2023-07-12 16:41] LABS: HEMATOCRIT 28.4 % (32.4-45.2); HEMOGLOBIN 9.5 GM/dL (10.7-15.3); MCH 32.3 pg (25.7-33.7); MCHC 33.4 g/dl (32.0-36.0); MEAN CELL VOLUME 96.6 fl (80-96); MEAN PLT VOLUME 9.5 fl (7.5-11.1); PLATELET COUNT 110 10^3/uL (134-434); RBC 2.94 M/mm3 (3.60-5.2); RDW 16.9 % (11.6-15.6); WHITE BLOOD COUNT 7.5 K/mm3 (4.0-10.0)
[2023-07-12] MEDS: PANTOPRAZOLE 40 MG TABLET PO SCH (22:15)
[2023-07-12] MEDS: CLARITHROMYCIN 500 MG TABLET (UD) PO SCH (22:16)
[2023-07-13 07:44] LABS: BASO % 0.5 % (0-2.0); EOS % 4.1 % (0-4.5); HEMATOCRIT 28.4 % (32.4-45.2); HEMOGLOBIN 9.4 GM/dL (10.7-15.3); LYMPH % 20.2 % (8-40); MCH 31.8 pg (25.7-33.7); MEAN CELL VOLUME 96.3 fl (80-96); MEAN PLT VOLUME 9.5 fl (7.5-11.1); MONO % 10.8 % (3.8-10.2); NEUT % 64.4 % (42.8-82.8); PLATELET COUNT 127 10^3/uL (134-434); RBC 2.95 M/mm3 (3.60-5.2); RDW 16.6 % (11.6-15.6); WHITE BLOOD COUNT 6.3 K/mm3 (4.0-10.0)
[2023-07-13 07:45] LABS: POTASSIUM 4.3 mmol/L (3.5-5.1)
[2023-07-13 07:52] LABS: ALBUMIN 2.4 g/dl (3.4-5.0)
[2023-07-13 07:53] LABS: CALCIUM 7.9 mg/dL (8.5-10.1)
[2023-07-13 07:54] LABS: TOT PROT 5.3 g/dl (6.4-8.2)
[2023-07-13 07:55] LABS: BILIRUBIN,TOTAL 0.6 mg/dL (0.2-1)
[2023-07-13 11:29] LABS: HEMATOCRIT 28.3 % (32.4-45.2); HEMOGLOBIN 9.3 GM/dL (10.7-15.3); MCH 31.8 pg (25.7-33.7); MEAN CELL VOLUME 96.4 fl (80-96); MEAN PLT VOLUME 9.5 fl (7.5-11.1); PLATELET COUNT 126 10^3/uL (134-434); RBC 2.94 M/mm3 (3.60-5.2); RDW 16.1 % (11.6-15.6); WHITE BLOOD COUNT 6.4 K/mm3 (4.0-10.0)
[2023-07-13 22:42] LABS: HEMATOCRIT 27.5 % (32.4-45.2); MCH 31.8 pg (25.7-33.7); MCHC 32.8 g/dl (32.0-36.0); MEAN CELL VOLUME 97.1 fl (80-96); MEAN PLT VOLUME 9.9 fl (7.5-11.1); PLATELET COUNT 112 10^3/uL (134-434); RBC 2.84 M/mm3 (3.60-5.2); RDW 16.8 % (11.6-15.6); WHITE BLOOD COUNT 6.1 K/mm3 (4.0-10.0)
[2023-07-14 08:28] LABS: BASO % 0.6 % (0-2.0); EOS % 3.6 % (0-4.5); HEMATOCRIT 28.3 % (32.4-45.2); HEMOGLOBIN 9.2 GM/dL (10.7-15.3); MCH 31.6 pg (25.7-33.7); MCHC 32.6 g/dl (32.0-36.0); MEAN PLT VOLUME 9.2 fl (7.5-11.1); MONO % 10.8 % (3.8-10.2); PLATELET COUNT 139 10^3/uL (134-434); RBC 2.92 M/mm3 (3.60-5.2); RDW 16.7 % (11.6-15.6); WHITE BLOOD COUNT 5.9 K/mm3 (4.0-10.0)
[2023-07-14 09:46] LABS: ALBUMIN 2.4 g/dl (3.4-5.0); ALK PHOS 60 U/L (45-117); ANION GAP 2 mmol/L (4-13); BILIRUBIN,TOTAL 0.6 mg/dL (0.2-1); BLOOD UREA NITROGEN 11.6 mg/dL (7-18); CALCIUM 8.2 mg/dL (8.5-10.1); CHLORIDE 110 mmol/L (98-107); CO2 28 mmol/L (21-32); CREATININE 1.1 mg/dL (0.55-1.3); GLUCOSE,RANDOM 133 mg/dL (74-106); SGOT/AST 10 U/L (15-37); SGPT/ALT < 6 U/L (13-61); SODIUM 140 mmol/L (136-145); TOT PROT 5.1 g/dl (6.4-8.2)
[2023-07-14] MEDS ORDERED: FENTANYL CITRATE/PF 50 MCG/ML VIAL ONE (12:42)
[2023-07-14] MEDS ORDERED: MIDAZOLAM HCL 2 MG/2 ML SINGLE DOSE VIAL ONE (12:42)
[2023-07-14] MEDS ORDERED: KETAMINE HCL 500 MG/10 ML VIAL ONE (12:42)
[2023-07-14] MEDS ORDERED: PROPOFOL 40 ML ONE (12:42)
[2023-07-14] MEDS ORDERED: ROCURONIUM BROMIDE 50 MG/5 ML SYRINGE ONE (12:42)
[2023-07-14] MEDS ORDERED: HEPARIN NA (PORCINE) 5,000 UNITS/ML 1ML VIAL ONE ×2 (13:29→14:31)
[2023-07-14 17:00] LABS: HEMATOCRIT 29.5 % (32.4-45.2); HEMOGLOBIN 9.6 GM/dL (10.7-15.3); MCH 31.3 pg (25.7-33.7); MCHC 32.4 g/dl (32.0-36.0); MEAN CELL VOLUME 96.5 fl (80-96); PLATELET COUNT 163 10^3/uL (134-434); RBC 3.06 M/mm3 (3.60-5.2); WHITE BLOOD COUNT 6.5 K/mm3 (4.0-10.0)
[2023-07-14 17:02] LABS: HEMATOCRIT 28.9 % (32.4-45.2); HEMOGLOBIN 9.4 GM/dL (10.7-15.3); MCH 31.8 pg (25.7-33.7); MCHC 32.7 g/dl (32.0-36.0); MEAN CELL VOLUME 97.2 fl (80-96); PLATELET COUNT 160 10^3/uL (134-434); RBC 2.97 M/mm3 (3.60-5.2); RDW 16.6 % (11.6-15.6); WHITE BLOOD COUNT 6.6 K/mm3 (4.0-10.0)
[2023-07-14] MEDS: morphine CARPU-JECT 2 MG/1 ML DISP.SYRIN IVPUSH ONE (21:11)
[2023-07-15] MEDS: ACETAMINOPHEN 1000 MG/100 ML BAG IVPB ONE (01:51)
[2023-07-15 07:37] LABS: BASO % 0.5 % (0-2.0); EOS % 4.7 % (0-4.5); HEMATOCRIT 25.3 % (32.4-45.2); HEMOGLOBIN 8.5 GM/dL (10.7-15.3); LYMPH % 19.6 % (8-40); MCH 32.3 pg (25.7-33.7); MCHC 33.6 g/dl (32.0-36.0); MEAN PLT VOLUME 8.7 fl (7.5-11.1); MONO % 9.7 % (3.8-10.2); NEUT % 65.5 % (42.8-82.8); PLATELET COUNT 142 10^3/uL (134-434); RBC 2.63 M/mm3 (3.60-5.2); RDW 16.4 % (11.6-15.6); WHITE BLOOD COUNT 5.3 K/mm3 (4.0-10.0)
[2023-07-15 08:07] LABS: ALBUMIN 2.2 g/dl (3.4-5.0); BLOOD UREA NITROGEN 12.1 mg/dL (7-18); CALCIUM 7.8 mg/dL (8.5-10.1)
[2023-07-15 08:11] LABS: BILIRUBIN,TOTAL 0.4 mg/dL (0.2-1); TOT PROT 4.5 g/dl (6.4-8.2)
[2023-07-15] MEDS: ENOXAPARIN NA (PORCINE) 100 MG/1 ML DISP.SYRIN SQ ONE (13:01)
[2023-07-15 14:58] LABS: HEMATOCRIT 27.8 % (32.4-45.2); MCH 31.5 pg (25.7-33.7); MCHC 32.2 g/dl (32.0-36.0); MEAN CELL VOLUME 97.5 fl (80-96); MEAN PLT VOLUME 8.9 fl (7.5-11.1); PLATELET COUNT 159 10^3/uL (134-434); RBC 2.85 M/mm3 (3.60-5.2); RDW 16.5 % (11.6-15.6); WHITE BLOOD COUNT 5.3 K/mm3 (4.0-10.0)
[2023-07-15] MEDS: ENOXAPARIN NA (PORCINE) 100 MG/1 ML DISP.SYRIN SQ SCH (21:23)
[2023-07-15] MEDS: ACETAMINOPHEN 500 MG TABLET (FP) PO SCH (21:25)
[2023-07-16] MEDS: MIDODRINE HCL 5 MG TABLET PO ONE (01:54)
[2023-07-16 08:12] LABS: BASO % 0.4 % (0-2.0); EOS % 5.3 % (0-4.5); HEMATOCRIT 25.6 % (32.4-45.2); HEMOGLOBIN 8.3 GM/dL (10.7-15.3); LYMPH % 24.2 % (8-40); MCH 31.6 pg (25.7-33.7); MCHC 32.6 g/dl (32.0-36.0); MEAN CELL VOLUME 96.8 fl (80-96); MEAN PLT VOLUME 9.2 fl (7.5-11.1); MONO % 11.1 % (3.8-10.2); PLATELET COUNT 173 10^3/uL (134-434); RBC 2.64 M/mm3 (3.60-5.2); RDW 16.7 % (11.6-15.6); WHITE BLOOD COUNT 5.2 K/mm3 (4.0-10.0)
[2023-07-16 08:14] LABS: CHLORIDE 112 mmol/L (98-107); POTASSIUM 4.3 mmol/L (3.5-5.1); SODIUM 142 mmol/L (136-145)
[2023-07-16 08:18] LABS: ALBUMIN 2.3 g/dl (3.4-5.0); ANION GAP 2 mmol/L (4-13); BLOOD UREA NITROGEN 11.8 mg/dL (7-18); CALCIUM 8.1 mg/dL (8.5-10.1); CO2 28 mmol/L (21-32); GLUCOSE,RANDOM 145 mg/dL (74-106)
[2023-07-16 08:21] LABS: SGOT/AST 12 U/L (15-37); SGPT/ALT < 6 U/L (13-61)
[2023-07-16 08:23] LABS: BILIRUBIN,TOTAL 0.4 mg/dL (0.2-1); TOT PROT 4.6 g/dl (6.4-8.2)
[2023-07-16 08:24] LABS: ALK PHOS 52 U/L (45-117)
[2023-07-16] MEDS: MIDODRINE HCL 5 MG TABLET PO SCH (09:46)
[2023-07-17 06:27] LABS: BASO % 0.6 % (0-2.0); HEMATOCRIT 24.9 % (32.4-45.2); HEMOGLOBIN 8.2 GM/dL (10.7-15.3); LYMPH % 29.3 % (8-40); MCH 31.7 pg (25.7-33.7); MCHC 32.9 g/dl (32.0-36.0); MEAN CELL VOLUME 96.4 fl (80-96); MEAN PLT VOLUME 8.7 fl (7.5-11.1); MONO % 10.7 % (3.8-10.2); NEUT % 54.4 % (42.8-82.8); PLATELET COUNT 179 10^3/uL (134-434); RBC 2.59 M/mm3 (3.60-5.2); RDW 16.8 % (11.6-15.6); WHITE BLOOD COUNT 5.2 K/mm3 (4.0-10.0)
[2023-07-17 07:22] LABS: ALBUMIN 2.3 g/dl (3.4-5.0); BILIRUBIN,TOTAL 0.4 mg/dL (0.2-1); BLOOD UREA NITROGEN 11.3 mg/dL (7-18); CALCIUM 7.8 mg/dL (8.5-10.1); CREATININE 0.9 mg/dL (0.55-1.3); TOT PROT 4.6 g/dl (6.4-8.2)
[2023-07-17] MEDS: SODIUM CHLORIDE 250 ML IV STA (10:51)
[2023-07-17 16:39] LABS: HEMATOCRIT 29.9 % (32.4-45.2); HEMOGLOBIN 9.6 GM/dL (10.7-15.3); MCH 31.5 pg (25.7-33.7); MCHC 31.9 g/dl (32.0-36.0); MEAN CELL VOLUME 98.7 fl (80-96); MEAN PLT VOLUME 9.1 fl (7.5-11.1); PLATELET COUNT 235 10^3/uL (134-434); RBC 3.03 M/mm3 (3.60-5.2); RDW 17.7 % (11.6-15.6); WHITE BLOOD COUNT 6.7 K/mm3 (4.0-10.0)
[2023-07-17 18:58] LABS: HEMATOCRIT 28.7 % (32.4-45.2); HEMOGLOBIN 9.3 GM/dL (10.7-15.3); MCH 31.7 pg (25.7-33.7); MCHC 32.3 g/dl (32.0-36.0); MEAN PLT VOLUME 8.8 fl (7.5-11.1); PLATELET COUNT 228 10^3/uL (134-434); RBC 2.93 M/mm3 (3.60-5.2); RDW 17.6 % (11.6-15.6); WHITE BLOOD COUNT 6.4 K/mm3 (4.0-10.0)
[2023-07-17] MEDS: PANTOPRAZOLE SODIUM 40 MG VIAL IVPUSH SCH (21:27)
[2023-07-18 03:04] LABS: HEMATOCRIT 25.7 % (32.4-45.2); HEMOGLOBIN 8.4 GM/dL (10.7-15.3); MCH 31.5 pg (25.7-33.7); MCHC 32.6 g/dl (32.0-36.0); MEAN CELL VOLUME 96.6 fl (80-96); MEAN PLT VOLUME 8.7 fl (7.5-11.1); PLATELET COUNT 204 10^3/uL (134-434); RBC 2.66 M/mm3 (3.60-5.2); RDW 17.2 % (11.6-15.6); WHITE BLOOD COUNT 5.4 K/mm3 (4.0-10.0)
[2023-07-18 07:43] LABS: BASO % 0.7 % (0-2.0); EOS % 4.6 % (0-4.5); HEMOGLOBIN 8.2 GM/dL (10.7-15.3); LYMPH % 26.6 % (8-40); MCH 31.7 pg (25.7-33.7); MCHC 32.6 g/dl (32.0-36.0); MEAN CELL VOLUME 97.3 fl (80-96); MEAN PLT VOLUME 8.9 fl (7.5-11.1); MONO % 11.5 % (3.8-10.2); NEUT % 56.6 % (42.8-82.8); PLATELET COUNT 188 10^3/uL (134-434); RBC 2.57 M/mm3 (3.60-5.2); RDW 16.7 % (11.6-15.6)
[2023-07-18 08:14] LABS: POTASSIUM 4.3 mmol/L (3.5-5.1)
[2023-07-18 08:23] LABS: CALCIUM 8.1 mg/dL (8.5-10.1)
[2023-07-18 08:24] LABS: BLOOD UREA NITROGEN 13.1 mg/dL (7-18)
[2023-07-18] MEDS: BISMUTH SUBSALICYLATE 524 MG/30 ML PO SCH (14:01)
[2023-07-18] MEDS: MIDODRINE HCL 5 MG TABLET PO SCH (14:01)
[2023-07-18] MEDS: metroNIDAZOLE 250 MG TABLET PO SCH (14:01)
[2023-07-18] MEDS: ACETAMINOPHEN 500 MG TABLET (FP) PO SCH (14:02)
[2023-07-18] MEDS: LIDOCAINE PATCH REMOVAL MC SCH (14:03)
[2023-07-18] MEDS: INSULIN ASPART SLIDING SCALE (NOVOLOG) 1 VIAL SQ SCH (17:03)
[2023-07-18] MEDS: MAG HYDROX/AL HYDROX/SIMETH 30 ML UNIT-DOSE CUP PO SCH (17:14)
[2023-07-18] MEDS: CLARITHROMYCIN 500 MG TABLET (UD) PO SCH (21:02)
[2023-07-18] MEDS: POLYETHYLENE GLYCOL (HEALTHYLAX) 3350 17 GM PACKET PO SCH (21:03)
[2023-07-18] MEDS: ROSUVASTATIN CA 5 MG TABLET PO SCH (21:03)
[2023-07-18] MEDS ORDERED: LIDOCAINE PATCH REMOVAL MC SCH (22:00)
[2023-07-18] MEDS: PANTOPRAZOLE SODIUM 40 MG VIAL IVPUSH SCH (22:11)
[2023-07-19 10:06] LABS: HEMATOCRIT 26.3 % (32.4-45.2); HEMOGLOBIN 8.5 GM/dL (10.7-15.3); MCH 31.3 pg (25.7-33.7); MCHC 32.1 g/dl (32.0-36.0); MEAN CELL VOLUME 97.3 fl (80-96); MEAN PLT VOLUME 8.2 fl (7.5-11.1); NEUT % 62.9 % (42.8-82.8); PLATELET COUNT 181 10^3/uL (134-434); WHITE BLOOD COUNT 5.1 K/mm3 (4.0-10.0)
[2023-07-19 10:07] LABS: BASO % 0.7 % (0-2.0); EOS % 3.2 % (0-4.5); LYMPH % 23.1 % (8-40); MONO % 10.1 % (3.8-10.2)
[2023-07-19 10:09] LABS: INR 1.15 (0.83-1.09); PROTHROMBIN TIME (PATIENT) 13.3 SEC (9.7-13.0)
[2023-07-19 10:29] LABS: POTASSIUM 3.9 mmol/L (3.5-5.1)
[2023-07-19 10:31] LABS: ALBUMIN 2.5 g/dl (3.4-5.0); BLOOD UREA NITROGEN 9.1 mg/dL (7-18); CALCIUM 8.2 mg/dL (8.5-10.1)
[2023-07-19 10:34] LABS: CREATININE 1.2 mg/dL (0.55-1.3)
[2023-07-19 10:36] LABS: BILIRUBIN,TOTAL 0.3 mg/dL (0.2-1)
[2023-07-19] MEDS: LIDOCAINE 4% PATCH TP SCH (10:50)
[2023-07-19] MEDS: LIDOCAINE PATCH REMOVAL MC SCH (10:52)
[2023-07-19 15:30] LABS: BASO % 0.5 % (0-2.0); EOS % 2.6 % (0-4.5); HEMATOCRIT 29.1 % (32.4-45.2); HEMOGLOBIN 9.4 GM/dL (10.7-15.3); MCH 31.8 pg (25.7-33.7); MCHC 32.3 g/dl (32.0-36.0); MEAN CELL VOLUME 98.5 fl (80-96); MEAN PLT VOLUME 8.3 fl (7.5-11.1); MONO % 12.1 % (3.8-10.2); NEUT % 63.8 % (42.8-82.8); PLATELET COUNT 211 10^3/uL (134-434); RBC 2.96 M/mm3 (3.60-5.2); RDW 17.3 % (11.6-15.6); WHITE BLOOD COUNT 6.5 K/mm3 (4.0-10.0)
[2023-07-19] MEDS: TIMOLOL 0.5% OPHTHALMIC SOL 5 ML BOTTLE OD SCH (18:53)
[2023-07-20 07:36] LABS: BASO % 0.7 % (0-2.0); EOS % 3.3 % (0-4.5); HEMATOCRIT 25.5 % (32.4-45.2); HEMOGLOBIN 8.5 GM/dL (10.7-15.3); LYMPH % 23.3 % (8-40); MCH 32.2 pg (25.7-33.7); MCHC 33.2 g/dl (32.0-36.0); MEAN CELL VOLUME 97.1 fl (80-96); MEAN PLT VOLUME 8.5 fl (7.5-11.1); MONO % 11.6 % (3.8-10.2); NEUT % 61.1 % (42.8-82.8); PLATELET COUNT 156 10^3/uL (134-434); RBC 2.63 M/mm3 (3.60-5.2); RDW 17.2 % (11.6-15.6); WHITE BLOOD COUNT 5.6 K/mm3 (4.0-10.0)
[2023-07-20 07:38] LABS: INR 1.16 (0.83-1.09); PROTHROMBIN TIME (PATIENT) 13.4 SEC (9.7-13.0)
[2023-07-20 07:52] LABS: POTASSIUM 4.1 mmol/L (3.5-5.1)
[2023-07-20 08:00] LABS: ALBUMIN 2.5 g/dl (3.4-5.0); CALCIUM 8.2 mg/dL (8.5-10.1)
[2023-07-20 08:01] LABS: BLOOD UREA NITROGEN 9.7 mg/dL (7-18)
[2023-07-20 08:03] LABS: CREATININE 1.2 mg/dL (0.55-1.3)
[2023-07-20 08:04] LABS: BILIRUBIN,TOTAL 0.4 mg/dL (0.2-1)
[2023-07-20] MEDS: ENOXAPARIN NA (PORCINE) 100 MG/1 ML DISP.SYRIN SQ SCH (12:27)
[2023-07-20] MEDS: MIDODRINE HCL 5 MG TABLET PO SCH (13:48)
[2023-07-20] MEDS: LACTATED RINGERS SOLUTION 1,000 ML/1,000 ML INFUS.BAG IV ONE (13:48)
[2023-07-20 16:44] LABS: BASO % 0.6 % (0-2.0); EOS % 2.3 % (0-4.5); HEMATOCRIT 28.1 % (32.4-45.2); HEMOGLOBIN 9.2 GM/dL (10.7-15.3); LYMPH % 18.5 % (8-40); MCH 31.9 pg (25.7-33.7); MCHC 32.6 g/dl (32.0-36.0); MEAN CELL VOLUME 97.9 fl (80-96); MEAN PLT VOLUME 8.4 fl (7.5-11.1); MONO % 10.2 % (3.8-10.2); NEUT % 68.4 % (42.8-82.8); PLATELET COUNT 175 10^3/uL (134-434); RBC 2.88 M/mm3 (3.60-5.2); RDW 17.6 % (11.6-15.6); WHITE BLOOD COUNT 7.2 K/mm3 (4.0-10.0)
[2023-07-20 17:15] LABS: MAGNESIUM 2.3 mg/dL (1.8-2.4)
[2023-07-20 17:19] LABS: PHOSPHOROUS 2.8 mg/dL (2.5-4.9)
[2023-07-21 00:21] LABS: BASO % 0.6 % (0-2.0); EOS % 3.5 % (0-4.5); HEMATOCRIT 25.4 % (32.4-45.2); HEMOGLOBIN 8.4 GM/dL (10.7-15.3); LYMPH % 23.4 % (8-40); MCH 31.8 pg (25.7-33.7); MEAN CELL VOLUME 96.3 fl (80-96); MEAN PLT VOLUME 8.3 fl (7.5-11.1); MONO % 13.3 % (3.8-10.2); NEUT % 59.2 % (42.8-82.8); PLATELET COUNT 170 10^3/uL (134-434); RBC 2.64 M/mm3 (3.60-5.2); RDW 17.4 % (11.6-15.6); WHITE BLOOD COUNT 6.6 K/mm3 (4.0-10.0)
[2023-07-21 06:50] LABS: EOS % 3.9 % (0-4.5); HEMATOCRIT 25.6 % (32.4-45.2); HEMOGLOBIN 8.4 GM/dL (10.7-15.3); LYMPH % 22.4 % (8-40); MCH 31.9 pg (25.7-33.7); MCHC 32.7 g/dl (32.0-36.0); MEAN CELL VOLUME 97.5 fl (80-96); MEAN PLT VOLUME 8.7 fl (7.5-11.1); MONO % 11.8 % (3.8-10.2); NEUT % 60.9 % (42.8-82.8); PLATELET COUNT 158 10^3/uL (134-434); RBC 2.63 M/mm3 (3.60-5.2); RDW 16.9 % (11.6-15.6); WHITE BLOOD COUNT 6.4 K/mm3 (4.0-10.0)
[2023-07-21 06:58] LABS: POTASSIUM 3.8 mmol/L (3.5-5.1)
[2023-07-21 07:02] LABS: ALBUMIN 2.4 g/dl (3.4-5.0); BLOOD UREA NITROGEN 12.9 mg/dL (7-18); CALCIUM 7.8 mg/dL (8.5-10.1)
[2023-07-21 07:05] LABS: CREATININE 1.4 mg/dL (0.55-1.3)
[2023-07-21 07:07] LABS: BILIRUBIN,TOTAL 0.6 mg/dL (0.2-1); TOT PROT 4.8 g/dl (6.4-8.2)
[2023-07-22 08:34] LABS: BASO % 0.6 % (0-2.0); EOS % 3.1 % (0-4.5); HEMATOCRIT 25.3 % (32.4-45.2); HEMOGLOBIN 8.4 GM/dL (10.7-15.3); LYMPH % 22.8 % (8-40); MCH 31.9 pg (25.7-33.7); MCHC 33.1 g/dl (32.0-36.0); MEAN CELL VOLUME 96.5 fl (80-96); MEAN PLT VOLUME 8.9 fl (7.5-11.1); MONO % 11.8 % (3.8-10.2); NEUT % 61.7 % (42.8-82.8); PLATELET COUNT 167 10^3/uL (134-434); RBC 2.62 M/mm3 (3.60-5.2); RDW 17.3 % (11.6-15.6); WHITE BLOOD COUNT 6.2 K/mm3 (4.0-10.0)
[2023-07-22 08:49] LABS: POTASSIUM 3.9 mmol/L (3.5-5.1)
[2023-07-22 08:53] LABS: ALBUMIN 2.4 g/dl (3.4-5.0); BLOOD UREA NITROGEN 12.5 mg/dL (7-18); CALCIUM 7.8 mg/dL (8.5-10.1)
[2023-07-22 08:56] LABS: CREATININE 1.6 mg/dL (0.55-1.3)
[2023-07-22 08:58] LABS: BILIRUBIN,TOTAL 0.4 mg/dL (0.2-1); TOT PROT 4.8 g/dl (6.4-8.2)
[2023-07-22] MEDS: SODIUM CHLORIDE 250 ML IV STA (18:11)
[2023-07-22] MEDS: SODIUM CHLORIDE 1,000 ML IV SCH (18:14)
[2023-07-23 07:46] LABS: BASO % 0.7 % (0-2.0); HEMATOCRIT 25.8 % (32.4-45.2); HEMOGLOBIN 8.5 GM/dL (10.7-15.3); MCH 31.7 pg (25.7-33.7); MEAN CELL VOLUME 96.2 fl (80-96); MEAN PLT VOLUME 8.2 fl (7.5-11.1); MONO % 11.1 % (3.8-10.2); NEUT % 63.2 % (42.8-82.8); PLATELET COUNT 167 10^3/uL (134-434); RBC 2.69 M/mm3 (3.60-5.2); WHITE BLOOD COUNT 5.7 K/mm3 (4.0-10.0)
[2023-07-23 07:55] LABS: POTASSIUM 4.3 mmol/L (3.5-5.1)
[2023-07-23 07:59] LABS: CALCIUM 7.5 mg/dL (8.5-10.1)
[2023-07-23 08:00] LABS: ALBUMIN 2.4 g/dl (3.4-5.0)
[2023-07-23 08:03] LABS: CREATININE 1.5 mg/dL (0.55-1.3)
[2023-07-23 08:04] LABS: BILIRUBIN,TOTAL 0.5 mg/dL (0.2-1)
[2023-07-23 14:40] VITALS: RESP 18
[2023-07-23 18:53] VITALS: BP 108/60; PULSE 95; TEMP 98.4
== END 2023-07-23 19:03 | DRG 982 ==
LOC: JER 15:27 → JERBED 23:02 → J4S 07-06 02:16 → OBSVTOIN 07-07 16:19
PROVIDERS: ADMIT Internal Medicine; ATTEND Internal Medicine
PROC: 0DB78ZX Excision of Stomach, Pylorus, Via Natural or Artificial Opening Endoscopic, Diagnostic (ICD-10-PCS; 2023-07-06)
PROC: 0W3P8ZZ Control Bleeding in Gastrointestinal Tract, Via Natural or Artificial Opening Endoscopic (ICD-10-PCS; 2023-07-06)
PROC: 3E0G8GC Introduction of Other Therapeutic Substance into Upper GI, Via Natural or Artificial Opening Endoscopic (ICD-10-PCS; 2023-07-06)
PROC: 30233N1 Transfusion of Nonautologous Red Blood Cells into Peripheral Vein, Percutaneous Approach (ICD-10-PCS; 2023-07-06)
PROC: 0DB98ZX Excision of Duodenum, Via Natural or Artificial Opening Endoscopic, Diagnostic (ICD-10-PCS; principal; 2023-07-06 14:20)
PROC: 06C03ZZ Extirpation of Matter from Inferior Vena Cava, Percutaneous Approach (ICD-10-PCS; 2023-07-14)
PROC: 06CC3ZZ Extirpation of Matter from Right Common Iliac Vein, Percutaneous Approach (ICD-10-PCS; 2023-07-14)
PROC: 06CD3ZZ Extirpation of Matter from Left Common Iliac Vein, Percutaneous Approach (ICD-10-PCS; 2023-07-14)
PROC: 06CM3ZZ Extirpation of Matter from Right Femoral Vein, Percutaneous Approach (ICD-10-PCS; 2023-07-14)
PROC: 06CF3ZZ Extirpation of Matter from Right External Iliac Vein, Percutaneous Approach (ICD-10-PCS; 2023-07-14)
DX: K26.0 Acute duodenal ulcer with hemorrhage (principal); D62 Acute posthemorrhagic anemia; I82.4Z1 Acute embolism and thrombosis of unspecified deep veins of right distal lower extremity; K31.1 Adult hypertrophic pyloric stenosis; K92.2 Gastrointestinal hemorrhage, unspecified; K92.0 Hematemesis; I10 Essential (primary) hypertension; E78.5 Hyperlipidemia, unspecified; E11.9 Type 2 diabetes mellitus without complications; M54.50 Low back pain, unspecified; F03.90 Unspecified dementia, unspecified severity, without behavioral disturbance, psychotic disturbance, mood disturbance, and anxiety; D86.9 Sarcoidosis, unspecified; K80.20 Calculus of gallbladder without cholecystitis without obstruction; R55 Syncope and collapse; B96.81 Helicobacter pylori [H. pylori] as the cause of diseases classified elsewhere; D69.6 Thrombocytopenia, unspecified; H40.89 Other specified glaucoma; K59.00 Constipation, unspecified; I95.89 Other hypotension; N83.299 Other ovarian cyst, unspecified side; E78.00 Pure hypercholesterolemia, unspecified
CPT/HCPCS: 0241U-QW; 36415; 36430; 37187; 70450-TC; 71045-TC-FY; 72125-TC; 74174-TC; 74177-TC; 80048; 80053; 80061; 81003; 82272; 82728; 82962; 83036; 83540; 83550; 83735; 84100; 84443; 84466; 84484; 85025; 85027; 85045; 85610; 85730; 86850; 86900; 86901; 86922; 87086; 88305-TC; 88341-TC; 88342-TC; 93005; 93010; 93306-TC; 93970-TC; 93971-TC; 97116-GP; 97161-GP; 99285-25; G0378; G0463; J0131; J1644; J1756; P9058; Q9967